=== PATIENT | female | born 1965 | race Caucasian/White ===

== ENCOUNTER → 2016-04-02 | Outpatient (CLI) | payer OTHER ==
[~2016-04-02] MED LIST: ACET65TA; AMO500 PO; ATEN25TA; CALC600T21 PO; CARAFATE1 PO; CARMOL TOPICAL; CELE-19 PO; COLA100C2; DURATUSS PO; FLONASESPR NASAL; IBUP600T; LEVO88TA3 PO; NAPROSY500; NYSTATINP TOPICALLY; PERC5TAB8; VITA200015 PO; VITAMIN D50000 UNT; XANAX0.25 PO; ZITHROZPAK PO; ZOMI5TAB4 PO; [UNRECOGNIZED DRUG - OTHER] TOPICAL
--- NOTE | 2016-04-02 09:44 | REPMRS ---
Patient History The patient states she has not had a clinical breast exam in over a year. Family history of colorectal cancer in paternal aunt and breast cancer in paternal cousin. Benign excisional biopsy of the right breast, 1996. Digital Woman Screen Mammo: April 02, 2016 - Exam #: [id number] Bilateral CC and MLO view(s) were taken. Technologist: Richelle Hoskins, Technologist Prior study comparison: April 01, 2015, digital woman screen mammo performed at [facility]. March 27, 2014, digital woman screen mammo performed at [facility]. March 26, 2013, digital woman screen mammo performed at [facility]. FINDINGS: The breast tissue is heterogeneously dense. This may lower the sensitivity of mammography. There is a moderate amount of heterogeneously dense fibroglandular tissue which is fairly symmetric. There is no interval development of dominant mass, architectural distortion, or clustered microcalcification typical of malignancy. There has been no change in the appearance of the mammogram from the prior studies. ASSESSMENT: BI-RADS/ACR category 1 mammogram. Negative. Recommendation Routine screening mammogram of both breasts in 1 year (for women over age 40). This mammogram was interpreted with the aid of an FDA-approved computer-aided dectection system. Electronically Signed By: Aba Rodrigues MD 04/02/16 0944
== END ==
LOC: M WHC 08:51
PROVIDERS: ATTEND Family Medicine
DX: Z12.31 Encounter for screening mammogram for malignant neoplasm of breast (principal)

== ENCOUNTER → 2016-04-07 | Outpatient (CLI) | payer OTHER ==
[~2016-04-07] VITALS: Ht 162.6 cm; Wt 83.9 kg
[~2016-04-07] MED LIST changes: +NS 1,000 ML IV SCH; +PROPOFOL 200 MG/20 ML VIAL As Ordered ONE
--- NOTE | 2016-04-07 14:59 | ROOR ---
Patient Name: Kelsey Hoyt Procedure Date: 04/07/2016 2:31 PM Date of : 1965 Age: 50 Room: [facility] Gender: Female Note Status: Finalized Procedure: Colonoscopy to Cecum + Biopsy Polypectomy + Hemoclip Indications: Screening for colorectal malignant neoplasm Providers: Braulio Lopez MD Referring MD: Delfino Aburto MD Requesting Provider: Medicines: Monitored Anesthesia Care Complications: No immediate complications. Procedure: Pre-Anesthesia Assessment: - The heart rate, respiratory rate, oxygen saturations, blood pressure, adequacy of pulmonary ventilation, and response to care were monitored throughout the procedure. The Colonoscope was introduced through the anus and advanced to the cecum, identified by appendiceal orifice and ileocecal valve. The colonoscopy was performed without difficulty. The patient tolerated the procedure well. The quality of the bowel preparation was excellent. Findings: The perianal and digital rectal examinations were normal. Non-bleeding internal hemorrhoids were found during retroflexion. The hemorrhoids were small and Grade I (internal hemorrhoids that do not prolapse). A small polyp was found in the proximal ascending colon. The polyp was sessile. The polyp was removed with a jumbo cold forceps. Resection and retrieval were complete. To prevent bleeding after the polypectomy, one hemostatic clip was successfully placed (MR conditional). There was no bleeding at the end of the procedure. The exam was otherwise without abnormality on direct and retroflexion views. Impression: - Non-bleeding internal hemorrhoids. - One small polyp in the proximal ascending colon, removed with a jumbo cold forceps. Resected and retrieved. Clip (MR conditional) was placed. - The examination was otherwise normal on direct and retroflexion views. - The exam was otherwise normal to the cecum. Recommendation: - Patient has a contact number available for emergencies. The signs and symptoms of potential delayed complications were discussed with the patient. Return to normal activities tomorrow. Written discharge instructions were provided to the patient. - High fiber diet. - Discharge patient to home. - Continue present medications. - Await pathology results. - Telephone GI clinic for pathology results in 1 week. - Repeat colonoscopy for surveillance based on pathology results. - Return to referring physician. - The findings and recommendations were discussed with the patient's family. Braulio Lopez MD Braulio Lopez MD 04/07/2016 2:59:05 PM This report has been signed electronically. Number of Addenda: 0 Note Initiated On: 04/07/2016 2:31 PM Estimated Blood Loss: Estimated blood loss: none.
[2016-04-07 15:20] VITALS: BP 120/76
== END ==
LOC: M OPP 12:52
PROVIDERS: ATTEND Internal Medicine Gastroenterology
DX: Z12.11 Encounter for screening for malignant neoplasm of colon (principal); D12.2 Benign neoplasm of ascending colon; K64.0 First degree hemorrhoids; E03.9 Hypothyroidism, unspecified; M54.2 Cervicalgia; G43.909 Migraine, unspecified, not intractable, without status migrainosus; L40.9 Psoriasis, unspecified; Z86.718 Personal history of other venous thrombosis and embolism; Z80.0 Family history of malignant neoplasm of digestive organs; Z87.891 Personal history of nicotine dependence; Z80.52 Family history of malignant neoplasm of bladder; Z79.899 Other long term (current) drug therapy

== ENCOUNTER → 2016-05-12 | Outpatient (CLI) | payer OTHER ==
[~2016-05-12] MED LIST changes: -NS 1,000 ML IV SCH; -PROPOFOL 200 MG/20 ML VIAL As Ordered ONE
--- NOTE | 2016-05-12 12:00 | REP ---
PELVIS ULTRASOUND: Real-time sonographic evaluation of the pelvis performed utilizing transabdominal and endovaginal technique. Bladder measures 14.3 x 11.6 x 7.2 cm. Uterus measures 11.0 x 4.4 x 6.8 cm. Endometrial thickness is 10 mm. There is no endometrial fluid collection. Nabothian cysts are seen in the region of the cervix. Fibroids are identified in the myometrium, anteriorly on the left measuring 2.1 x 1.1 x 2.0 cm and posteriorly 2.5 x 2.0 x 2.9 cm. Right ovary could not be visualized. Left ovary measured 2.6 x 1.4 x 2.1 cm. There is blood flow seen in the left ovary with duplex Doppler evaluation with RI 0.48. A complex follicle in the left ovary measures 2.1 cm in maximum diameter. IMPRESSION: There is an anterior and a posterior uterine fibroid as discussed above. Right ovary could not be visualized. Left ovary demonstrates a complex dominant follicle.
== END ==
LOC: M WHC 09:21
PROVIDERS: ATTEND Nurse Practitioner Family
DX: R10.2 Pelvic and perineal pain (principal)

== ENCOUNTER → 2016-05-12 | Outpatient (CLI) | payer OTHER ==
--- NOTE | 2016-05-13 14:11 | DEXA ---
AP SPINE L1 - L4 1.417 1.8 1.7 LT FEMUR TOTAL 0.948 -0.5 -0.4 RT FEMUR TOTAL 0.977 -0.2 -0.4 TOTAL BODY TOTAL OTHER DUAL FEMUR FRAX* ASSESSMENT Risk factors: None. 10 year probability of fracture Major osteoporotic fracture 5.0 % Hip fracture 0.4 % COMMENTS: Normal bone densitometry of the spine. There is low bone density of the hips. The decreased density of the spine does not represent a significant change. The decreased density of the left hip does not represent a significant change. The decreased density of the right hip does not represent a significant change. The density of the spine has increased 1.8% since the initial exam on 2011. The spine density has decreased 0.3% since the most recent exam on 03/26/2013. The density of the left hip has decreased 0.1% since the initial exam on 2011. The density of the left hip has increased 0.3% since the most recent exam on . The density of the right hip has decreased 1.1% since the initial exam on 2011. The density of the right hip has decreased 0.8% since the most recent exam on . FOLLOW-UP: Recommendation for the next bone density exam: 2 years. SAMANTHA
== END ==
LOC: M WHC 09:24
PROVIDERS: ATTEND Family Medicine
DX: E55.9 Vitamin D deficiency, unspecified (principal)

== ENCOUNTER → 2016-06-23 | Outpatient (CLI) | payer OTHER ==
[2016-06-23 16:05] LABS: BASO % 0.4 % (0.0-1.0); EOS # 0.2 K/mm3 (0.0-0.50); LARGE UNSTAINED CELL # 0.2 K/mm3 (0.0-0.4); LARGE UNSTAINED CELL % 1.9 % (0.0-4.0); LYMPH # 2.2 K/mm3 (1.5-4.5); LYMPH % 22.9 % (24.0-44.0); MEAN CORPUSCULAR HEMOGLOBIN 31.1 pg (27.0-33.0); MEAN CORPUSCULAR VOLUME 91.5 fl (80.0-96.0); MONO # 0.5 K/mm3 (0.0-0.8); MONO % 5.6 % (0.0-5.0); NEUTROPHILS % 67.2 % (36.0-66.0); PLATELET COUNT, AUTOMATED 240 k/mm3 (150-450); RED CELL DISTRIBUTION WIDTH 12.6 % (11.5-14.5); WHITE BLOOD COUNT 8.8 K/mm3 (4.0-10.0)
[2016-06-23 16:43] LABS: ALBUMIN 3.9 GM/DL (3.2-5.2); ALKALINE PHOSPHATASE 67 U/L (45-117); ALT/SGPT 32 U/L (12-78); ANION GAP 8 MEQ/L (8-16); AST/SGOT 19 U/L (15-37); BILIRUBIN,TOTAL 0.7 MG/DL (0.2-1.0); BLOOD UREA NITROGEN 13 MG/DL (7-18); CALCIUM LEVEL 8.6 MG/DL (8.5-10.1); CARBON DIOXIDE LEVEL 28 MEQ/L (21-32); CHLORIDE LEVEL 104 MEQ/L (98-107); CREATININE FOR GFR 0.87 MG/DL (0.55-1.02); FREE T4 1.03 NG/DL (0.76-1.46); GLOMERULAR FILTRATION RATE > 60.0 (>51); GLUCOSE, FASTING 90 MG/DL (70-105); SODIUM LEVEL 140 MEQ/L (136-145); TOTAL PROTEIN 7.8 GM/DL (6.4-8.2)
[2016-06-23 16:59] LABS: VITAMIN B12 LEVEL 390 PG/ML (247-911)
== END ==
LOC: M WUC 08:51
PROVIDERS: ATTEND Family Medicine
DX: E03.9 Hypothyroidism, unspecified (principal); E55.9 Vitamin D deficiency, unspecified

== ENCOUNTER 2016-07-30 20:32 | Emergency (ER) | payer OTHER ==
[~2016-07-30] VITALS: Ht 162.6 cm; Wt 86.2 kg
[2016-07-30] MEDS ORDERED: AMOX500T (20:41)
[2016-07-30] MEDS ORDERED: HYDR-3713 (20:41)
[2016-07-30] MEDS ORDERED: TOPI25TA5 (20:41)
[2016-07-30] MEDS ORDERED: NS 1,000 ML IV ONE (21:00)
[2016-07-30] MEDS ORDERED: ONDANSETRON 4MG/2ML VIAL (J2405) IV ONE (21:00)
[2016-07-30] MEDS ORDERED: KETOROLAC 30 MG/ML VIAL (J1885) IV ONE (21:00)
[2016-07-30 21:16] LABS: BASO % 0.1 % (0.0-1.0); EOS # 0.1 K/mm3 (0.0-0.50); EOS % 1.1 % (0.0-3.0); LARGE UNSTAINED CELL # 0.1 K/mm3 (0.0-0.4); LARGE UNSTAINED CELL % 1.1 % (0.0-4.0); LYMPH # 1.7 K/mm3 (1.5-4.5); LYMPH % 13.7 % (24.0-44.0); MEAN CORPUSCULAR HEMOGLOBIN 31.3 pg (27.0-33.0); MEAN CORPUSCULAR HGB CONC 34.8 g/dl (32.0-36.5); MEAN CORPUSCULAR VOLUME 89.9 fl (80.0-96.0); MONO # 0.5 K/mm3 (0.0-0.8); MONO % 4.5 % (0.0-5.0); NEUTROPHILS # 9.1 K/mm3 (1.8-7.7); NEUTROPHILS % 79.4 % (36.0-66.0); PLATELET COUNT, AUTOMATED 263 k/mm3 (150-450); RED CELL DISTRIBUTION WIDTH 12.7 % (11.5-14.5); WHITE BLOOD COUNT 11.4 K/mm3 (4.0-10.0)
[2016-07-30 21:35] LABS: ALBUMIN 3.8 GM/DL (3.2-5.2); ALBUMIN/GLOBULIN RATIO 0.84 (1.00-1.93); ALKALINE PHOSPHATASE 69 U/L (45-117); ALT/SGPT 22 U/L (12-78); ANION GAP 13 MEQ/L (8-16); AST/SGOT 16 U/L (15-37); BILIRUBIN,DIRECT 0.2 MG/DL (0.0-0.2); BILIRUBIN,TOTAL 1.1 MG/DL (0.2-1.0); BLOOD UREA NITROGEN 13 MG/DL (7-18); CALCIUM LEVEL 9.3 MG/DL (8.5-10.1); CARBON DIOXIDE LEVEL 22 MEQ/L (21-32); CHLORIDE LEVEL 102 MEQ/L (98-107); CREATININE FOR GFR 0.73 MG/DL (0.55-1.02); GLOMERULAR FILTRATION RATE > 60.0 (>51); GLUCOSE, FASTING 90 MG/DL (70-105); POTASSIUM SERUM 3.8 MEQ/L (3.5-5.1); SODIUM LEVEL 137 MEQ/L (136-145); TOTAL PROTEIN 8.3 GM/DL (6.4-8.2)
[2016-07-30] MEDS ORDERED: GI COCKTAIL 50ML BTL(HYOSCYAMINE/MAALOX/LIDOCAINE VISCOUS)(1:3:1) PO ONE (22:00)
[2016-07-30] MEDS ORDERED: ZOFR4TAB3 PO (22:14)
[2016-07-30] MEDS ORDERED: NAPR500T PO (22:15)
[2016-07-30 22:47] VITALS: BP 113/69
== END 2016-07-30 22:51 | disposition home or self-care (01) ==
LOC: M ED 21:38
DX: R11.2 Nausea with vomiting, unspecified (principal); R51 Headache; Z79.899 Other long term (current) drug therapy; I10 Essential (primary) hypertension; M54.9 Dorsalgia, unspecified
CPT/HCPCS: 36415; 80048; 80076; 83690; 85025; 96374; 96375; 99283; J1885; J2405

== ENCOUNTER → 2016-08-12 | Outpatient (CLI) | payer OTHER ==
[~2016-08-12] MED LIST changes: +AMOX500T; +HYDR-3713; +NAPR500T PO; +TOPI25TA5; +ZOFR4TAB3 PO
[2016-08-12 11:28] LABS: BASO % 0.4 % (0.0-1.0); EOS # 0.1 K/mm3 (0.0-0.50); EOS % 1.2 % (0.0-3.0); LARGE UNSTAINED CELL # 0.1 K/mm3 (0.0-0.4); LARGE UNSTAINED CELL % 1.6 % (0.0-4.0); LYMPH % 22.6 % (24.0-44.0); MEAN CORPUSCULAR HEMOGLOBIN 31.1 pg (27.0-33.0); MEAN CORPUSCULAR HGB CONC 33.6 g/dl (32.0-36.5); MEAN CORPUSCULAR VOLUME 92.7 fl (80.0-96.0); MONO # 0.6 K/mm3 (0.0-0.8); MONO % 6.9 % (0.0-5.0); NEUTROPHILS # 5.4 K/mm3 (1.8-7.7); NEUTROPHILS % 67.3 % (36.0-66.0); PLATELET COUNT, AUTOMATED 267 k/mm3 (150-450); RED CELL DISTRIBUTION WIDTH 13.1 % (11.5-14.5)
[2016-08-12 11:45] LABS: ANION GAP 5 MEQ/L (8-16); BLOOD UREA NITROGEN 13 MG/DL (7-18); CARBON DIOXIDE LEVEL 26 MEQ/L (21-32); CHLORIDE LEVEL 110 MEQ/L (98-107); CREATININE FOR GFR 0.76 MG/DL (0.55-1.02); GLOMERULAR FILTRATION RATE > 60.0 (>51); GLUCOSE, FASTING 86 MG/DL (70-105); SODIUM LEVEL 141 MEQ/L (136-145)
== END ==
LOC: M WUC 09:16
PROVIDERS: ATTEND Physician Assistant Medical
DX: M75.40 Impingement syndrome of unspecified shoulder (principal)

== ENCOUNTER → 2016-09-01 | Outpatient (CLI) | payer OTHER ==
--- NOTE | 2016-09-01 09:48 | REP ---
MRI CERVICAL SPINE WITHOUT CONTRAST: HISTORY: Shoulder impingement. Bilateral arm pain and numbness and tingling. Comparison MRI study is from December 08, 2011. TECHNIQUE: Sagittal and axial T1 and T2-weighted scans are acquired in the usual fashion with and without fat saturation. Sequences include spin echo, turbo spin echo, and STIR imaging sequences. MRI FINDINGS: There is straightening of the normal cervical lordosis. Cortical and medullary bone signal intensity are normal. Vertebral body heights are preserved. There is decreased disc space height and signal intensity at the C5-6 and to a lesser extent C6-7 and C4-5 disc spaces consistent with degenerative disc disease. No extra vertebral abnormality is appreciated. Axial and sagittal T1 and T2-weighted images show no significant abnormality at C2-3. At C3-4, there is mild left-sided uncovertebral spurring producing some neural foraminal narrowing. There is diffuse disc bulging. No central canal stenosis is seen. At C4-5, there is no evidence of disc herniation, central canal stenosis, or significant neural foraminal compromise. At C5-6, there is a broad-based central disc protrusion effacing the ventral subarachnoid space and indenting the ventral margin of the cord. There is some effacement of the CSF signal from the dorsal aspect of the canal as well consistent with mild central canal stenosis. There is bilateral uncovertebral spurring at C5-6 as well. This is worse on the left than the right. At C6-7, there is minimal central disc bulging. No central canal stenosis or neural foraminal compromise is seen. The C7-T1 level is unremarkable as well. IMPRESSION: Degenerate spondylosis. This is most pronounced at C5-6 where there is mild central canal stenosis and a broad-based central disc protrusion with bilateral neural foraminal narrowing. There is also some left-sided neural foraminal narrowing at C3-4. In comparison with the 2012 prior study, the central portion of the disc protrusion at C5-6 has increased in size and the central canal stenosis is more prominent. Otherwise, unchanged. Signed by Mikey Rodrigues MD 09/01/2016 03:22 P
== END ==
LOC: M RAD 07:08
PROVIDERS: ATTEND Physician Assistant Medical
DX: M47.892 Other spondylosis, cervical region (principal)

== ENCOUNTER → 2016-11-24 | Outpatient (CLI) | payer OTHER ==
[~2016-11-24] MED LIST changes: -CALC600T21 PO; +CALC600T60 PO; -CELE-19 PO; +CELE1CAP4 PO; +TOPI25TA10; -TOPI25TA5; +ZOMI5TAB12 PO; -ZOMI5TAB4 PO
[2016-11-24 14:12] LABS: BASO % 0.4 % (0.0-1.0); EOS # 0.1 K/mm3 (0.0-0.50); EOS % 1.5 % (0.0-3.0); LARGE UNSTAINED CELL # 0.1 K/mm3 (0.0-0.4); LARGE UNSTAINED CELL % 1.6 % (0.0-4.0); LYMPH # 1.8 K/mm3 (1.5-4.5); LYMPH % 24.7 % (24.0-44.0); MEAN CORPUSCULAR HEMOGLOBIN 31.5 pg (27.0-33.0); MEAN CORPUSCULAR HGB CONC 34.6 g/dl (32.0-36.5); MEAN CORPUSCULAR VOLUME 91.1 fl (80.0-96.0); MONO # 0.4 K/mm3 (0.0-0.8); MONO % 5.9 % (0.0-5.0); NEUTROPHILS # 4.8 K/mm3 (1.8-7.7); NEUTROPHILS % 65.9 % (36.0-66.0); PLATELET COUNT, AUTOMATED 249 k/mm3 (150-450); RED CELL DISTRIBUTION WIDTH 12.8 % (11.5-14.5); WHITE BLOOD COUNT 7.3 K/mm3 (4.0-10.0)
== END ==
LOC: M WUC 08:33
PROVIDERS: ATTEND Family Medicine
DX: E78.2 Mixed hyperlipidemia (principal)

== ENCOUNTER → 2017-05-12 | Outpatient (REF) | payer OTHER | LOC: M SFHCWAGY 11:08 | DX: Z12.4 Encounter for screening for malignant neoplasm of cervix (principal) | CPT/HCPCS: G0123 ==

== ENCOUNTER → 2017-05-12 | Outpatient (CLI) | payer OTHER | LOC: M WHC 10:38 | DX: Z12.39 Encounter for other screening for malignant neoplasm of breast (principal) ==

== ENCOUNTER → 2017-07-18 | Outpatient (CLI) | payer OTHER ==
[2017-07-18 09:01] LABS: HEMATOCRIT 39.4 % (36.0-47.0)
[2017-07-18 09:35] LABS: C REACTIVE PROTEIN QUANTITATIV < 0.30 MG/DL (0.00-0.30); CHOLESTEROL LEVEL 178 MG/DL (<200); CHOLESTEROL RISK RATIO 3.358 (<5); FERRITIN 25 NG/ML (8-252); FREE T4 0.95 NG/DL (0.76-1.46); HDL CHOLESTEROL 53 MG/DL (>40); IRON (FE) 66 UG/DL (50-170); LDL CHOLESTEROL 104.2 MG/DL (<100); NON-HDL-C 125 MG/DL; TOTAL IRON BINDING CAPACITY 330 UG/DL (250-450); TRIGLYCERIDES LEVEL 104 MG/DL (<150)
[2017-07-18 09:40] LABS: VITAMIN B12 LEVEL 352 PG/ML (247-911)
[2017-07-19 11:37] LABS: PRETREATED FOLATE FOR RBCFOL 11.1 NG/ML; RBC FOLATE 591.6 NG/ML (280-791)
== END ==
LOC: M WUC 08:18
DX: E78.2 Mixed hyperlipidemia (principal); E53.8 Deficiency of other specified B group vitamins; E03.9 Hypothyroidism, unspecified
CPT/HCPCS: 83550

== ENCOUNTER 2017-08-09 17:06 | Outpatient (CLI) | payer OTHER | END 2017-08-22 | LOC: M RAD 17:06 | DX: M47.816 Spondylosis without myelopathy or radiculopathy, lumbar region (principal) | CPT/HCPCS: 72148 ==

== ENCOUNTER → 2017-12-02 | Outpatient (REF) | payer OTHER ==
[2017-12-02 12:01] LABS: BASO # 0.1 10^3/uL (0.0-0.2); BASO % 0.6 % (0.0-1.0); EOS # 0.1 10^3/uL (0.0-0.50); EOS % 1.4 % (0.0-3.0); HEMATOCRIT 41.3 % (36.0-47.0); HEMOGLOBIN 13.9 g/dl (12.0-15.5); IMMATURE GRANULOCYTE % 0.2 % (0-3.0); LYMPH # 2.1 10^3/uL (1.5-4.5); LYMPH % 24.5 % (24.0-44.0); MEAN CORPUSCULAR HEMOGLOBIN 30.5 pg (27.0-33.0); MEAN CORPUSCULAR HGB CONC 33.7 g/dl (32.0-36.5); MEAN CORPUSCULAR VOLUME 90.6 fl (80.0-96.0); MONO # 0.5 10^3/uL (0.0-0.8); MONO % 6.2 % (0.0-5.0); NEUTROPHILS # 5.8 10^3/uL (1.8-7.7); NEUTROPHILS % 67.1 % (36.0-66.0); PLATELET COUNT, AUTOMATED 278 10^3/uL (150-450); RED BLOOD COUNT 4.56 10^6/uL (4.00-5.40); RED CELL DISTRIBUTION WIDTH 12.7 % (11.5-14.5); RETICULOCYTE # 80.3 10^9/L (17-77); RETICULOCYTE % 1.8 % (0.5-1.5); WHITE BLOOD COUNT 8.7 10^3/uL (4.0-10.0)
[2017-12-02 12:49] LABS: ALBUMIN/GLOBULIN RATIO 1.08 (1.00-1.93); ALKALINE PHOSPHATASE 83 U/L (45-117); ALT/SGPT 47 U/L (12-78); ANION GAP 9 MEQ/L (8-16); AST/SGOT 23 U/L (7-37); BILIRUBIN,TOTAL 0.7 MG/DL (0.2-1.0); BLOOD UREA NITROGEN 10 MG/DL (7-18); CALCIUM LEVEL 9.6 MG/DL (8.5-10.1); CARBON DIOXIDE LEVEL 25 MEQ/L (21-32); CHLORIDE LEVEL 109 MEQ/L (98-107); FREE T4 1.04 NG/DL (0.76-1.46); GLOMERULAR FILTRATION RATE > 60.0 (>51); GLUCOSE, FASTING 91 MG/DL (70-100); POTASSIUM SERUM 4.3 MEQ/L (3.5-5.1); SODIUM LEVEL 143 MEQ/L (136-145); THYROID STIMULATING HORMONE 0.513 uIU/ML (0.358-3.740); TOTAL PROTEIN 7.7 GM/DL (6.4-8.2)
[2017-12-02 14:45] LABS: ESTIMATED AVERAGE GLUCOSE 108 MG/DL (60-110); HEMOGLOBIN A1c 5.4 %
[2017-12-03 15:10] LABS: INSULIN LEVEL 11.6 uIU/mL (2.6-24.9)
== END ==
LOC: M SFHCPLAZ 08:10
DX: E53.8 Deficiency of other specified B group vitamins (principal); E66.3 Overweight; E03.9 Hypothyroidism, unspecified

== ENCOUNTER → 2018-05-09 | Outpatient (REF) | payer OTHER ==
[~2018-05-09] MED LIST changes: +NAPR-50 PO; -NAPR500T PO; +ZOFR4TAB14 PO; -ZOFR4TAB3 PO
[2018-05-09 10:43] LABS: BASO # 0.1 10^3/uL (0.0-0.2); BASO % 0.6 % (0.0-1.0); EOS # 0.1 10^3/uL (0.0-0.50); EOS % 1.3 % (0.0-3.0); HEMATOCRIT 41.1 % (36.0-47.0); HEMOGLOBIN 13.9 g/dl (12.0-15.5); LYMPH # 2.1 10^3/uL (1.5-4.5); MEAN CORPUSCULAR HEMOGLOBIN 30.5 pg (27.0-33.0); MEAN CORPUSCULAR HGB CONC 33.8 g/dl (32.0-36.5); MEAN CORPUSCULAR VOLUME 90.3 fl (80.0-96.0); MONO # 0.6 10^3/uL (0.0-0.8); MONO % 7.8 % (0.0-5.0); NEUTROPHILS # 5.1 10^3/uL (1.8-7.7); NEUTROPHILS % 64.2 % (36.0-66.0); PLATELET COUNT, AUTOMATED 254 10^3/uL (150-450); RED BLOOD COUNT 4.55 10^6/uL (4.00-5.40); WHITE BLOOD COUNT 7.9 10^3/uL (4.0-10.0)
[2018-05-09 10:44] LABS: HEMATOCRIT 41.1 % (36.0-47.0)
[2018-05-09 13:04] LABS: ALBUMIN 3.9 GM/DL (3.2-5.2); ALT/SGPT 43 U/L (12-78); BILIRUBIN,TOTAL 0.8 MG/DL (0.2-1.0); BLOOD UREA NITROGEN 15 MG/DL (7-18); CALCIUM LEVEL 9.5 MG/DL (8.5-10.1); CARBON DIOXIDE LEVEL 24 MEQ/L (21-32); CHLORIDE LEVEL 106 MEQ/L (98-107); CREATININE FOR GFR 0.92 MG/DL (0.55-1.30); FREE T4 1.19 NG/DL (0.76-1.46); GLOMERULAR FILTRATION RATE > 60.0 (>51); GLUCOSE, FASTING 88 MG/DL (70-100); POTASSIUM SERUM 4.6 MEQ/L (3.5-5.1); PTH INTACT 47.2 PG/ML (18.5-88.0); SODIUM LEVEL 141 MEQ/L (136-145); TOTAL 25(OH) VITAMIN D 31.8 NG/ML (30.0-100.0); TOTAL PROTEIN 7.7 GM/DL (6.4-8.2); VITAMIN B12 LEVEL 419 PG/ML (247-911)
== END ==
LOC: M SFHCPLAZ 08:18
PROVIDERS: ATTEND Family Medicine
DX: E53.8 Deficiency of other specified B group vitamins (principal); E55.9 Vitamin D deficiency, unspecified; E03.9 Hypothyroidism, unspecified

== ENCOUNTER → 2018-05-23 | Outpatient (CLI) | payer OTHER ==
--- NOTE | 2018-05-24 05:47 | REP ---
Clinical: Thyroid nodule. Technique: Real time murillo scale and color evaluation using linear high frequency transducer. Comparison: None. Findings: The thyroid gland is heterogeneous, but without discrete nodule or cystic change appreciated. Right lobe measures 3.3 x 1.3 x 1.0 cm. Left lobe measures 2.9 x 0.9 x 1.0 cm. Isthmus measures 3.6 mm in width. Impression: Heterogeneous thyroid gland. No discrete nodule or cyst. Electronically Signed by Skip Madsen MD 05/24/2018 05:39 A
== END ==
LOC: M RAD 16:30
PROVIDERS: ATTEND Family Medicine
DX: E07.9 Disorder of thyroid, unspecified (principal)

== ENCOUNTER → 2018-07-12 | Outpatient (CLI) | payer OTHER ==
[~2018-07-12] MED LIST changes: -NAPR-50 PO; +NAPR-837 PO
--- NOTE | 2018-07-12 12:02 | REPMRS ---
Patient History The patient states she had a clinical breast exam in 07/2018. Family history of breast cancer in paternal cousin, colorectal cancer in paternal aunt. Benign excisional biopsy of the right breast, 1996. No Hormone Replacement Therapy 3D TOMOSYNTHESIS WAS PERFORMED. Digital Woman Screen Mammo: July 12, 2018 - Exam #: [id number] Bilateral CC and MLO view(s) were taken. Technologist: Lisa Tejeda, Technologist Prior study comparison: May 12, 2017, digital woman screen mammo performed at [facility]. April 02, 2016, digital woman screen mammo performed at [facility]. FINDINGS: The breast tissue is heterogeneously dense. This may lower the sensitivity of mammography. There has been no change in the appearance of the mammogram from the prior studies. There is a moderate amount of residual fibroglandular tissue which is fairly symmetric. There is no interval development of dominant mass, areas of architectural distortion, or clustered microcalcification typical of malignancy. Assessment: BI-RADS/ACR category 1 mammogram. Negative Mammogram. Recommendation Routine screening mammogram in 1 year (for women over age 40). This mammogram was interpreted with the aid of an FDA-approved computer-aided dectection system. Electronically Signed By: Anatoly Avila MD 07/12/18 7905
== END ==
LOC: M WHC 08:45
PROVIDERS: ATTEND Family Medicine
DX: Z12.31 Encounter for screening mammogram for malignant neoplasm of breast (principal)

== ENCOUNTER → 2018-07-12 | Outpatient (REF) | payer OTHER ==
[2018-07-15 14:15] LABS: HPV HYBRID CAPTURE II Negative (Negative)
== END ==
LOC: M SFHCWAGY 09:11
PROVIDERS: ATTEND Nurse Practitioner Family
DX: Z12.4 Encounter for screening for malignant neoplasm of cervix (principal)
CPT/HCPCS: 87624; G0123

== ENCOUNTER → 2018-09-25 | Outpatient (CLI) | payer OTHER ==
--- NOTE | 2018-09-27 12:55 | DEXA ---
AP SPINE L1 - L4 1.313 1.0 1.7 LT FEMUR TOTAL 0.888 -1.0 -0.4 LT NECK 0.775 -1.9 -0.9 RT FEMUR TOTAL 0.918 -0.7 -0.1 RT NECK 0.816 -1.6 -0.6 TOTAL BODY TOTAL OTHER COMMENTS: Normal bone densitometry of the spine. There is low bone density of hips. The decreased density of the spine does represent a significant change. The decreased density of the left hip does represent a significant change. The decreased density of the right hip does represent a significant change. The density of the spine has decreased 5.7% since the initial exam on 03/12/2011. The spine density has decreased 7.3% since the most recent exam on 05/12/2016. The density of the left hip has decreased 6.4% since the initial exam on 03/12/2011. The density of the left hip has decreased 6.3% since the most recent exam on 05/12/2016. The density of the right hip has decreased 7.1% since the initial exam on 03/12/2011. The density of the right hip has decreased 6.0% since the most recent exam on 05/12/2016. FOLLOW-UP: Recommendation for the next bone density exam: 2 years. SAMANTHA
== END ==
LOC: M WHC 14:19
PROVIDERS: ATTEND Family Medicine
DX: M85.80 Other specified disorders of bone density and structure, unspecified site (principal)

== ENCOUNTER → 2018-10-19 | Outpatient (REF) | payer OTHER ==
[2018-10-19 10:51] LABS: APPEARANCE, URINE CLEAR (CLEAR); BACTERIA, URINE AUTO NEGATIVE (NEGATIVE); BILIRUBIN, URINE AUTO NEGATIVE (NEGATIVE); BLOOD, URINE BLOOD 1+ (NEGATIVE); COLOR, URINE YELLOW (YELLOW); GLUCOSE, URINE (UA) AUTO NEGATIVE (NEGATIVE); KETONE, URINE AUTO NEGATIVE (NEGATIVE); LEUKOCYTE ESTERASE, URINE AUTO NEGATIVE (NEGATIVE); MUCUS, URINE SMALL (NEGATIVE); NITRITE, URINE AUTO NEGATIVE (NEGATIVE); PROTEIN, URINE AUTO NEGATIVE (NEGATIVE); RBC, URINE AUTO 1 /HPF (0-3); SPECIFIC GRAVITY URINE AUTO 1.015 (1.002-1.035); SQUAMOUS EPITHELIAL CELL UR AU 0 /HPF (0-6); UROBILINOGEN, URINE AUTO 0.2 mg/dL (0.0-2.0); WBC, URINE AUTO 1 /HPF (0-3)
[2018-10-19 11:53] LABS: CREATININE, URINE 91.9 MG/DL; MALB URINE SIEMENS 5.1 MG/L; MAU/CREAT RATIO 5.5 MCG/MG (0.0-30.0)
[2018-10-19 13:16] LABS: BLOOD UREA NITROGEN 18 MG/DL (7-18); GLOMERULAR FILTRATION RATE > 60.0 (>51); GLUCOSE, FASTING 99 MG/DL (70-100)
[2018-10-19 13:17] LABS: ALBUMIN 3.8 GM/DL (3.2-5.2); ALT/SGPT 40 U/L (12-78); BILIRUBIN,TOTAL 0.5 MG/DL (0.2-1.0); CALCIUM LEVEL 9.7 MG/DL (8.5-10.1); CARBON DIOXIDE LEVEL 28 MEQ/L (21-32); CHLORIDE LEVEL 111 MEQ/L (98-107); POTASSIUM SERUM 4.4 MEQ/L (3.5-5.1); SODIUM LEVEL 143 MEQ/L (136-145); TOTAL PROTEIN 7.6 GM/DL (6.4-8.2)
[2018-10-19 14:31] LABS: PTH INTACT 29.3 PG/ML (18.5-88.0); TOTAL 25(OH) VITAMIN D 30.5 NG/ML (30.0-100.0)
[2018-10-19 14:45] LABS: HEMOGLOBIN A1c 5.5 %
== END ==
LOC: M SFHCPLAZ 07:50
PROVIDERS: ATTEND Family Medicine
DX: E66.3 Overweight (principal); E55.9 Vitamin D deficiency, unspecified; G43.001 Migraine without aura, not intractable, with status migrainosus

== ENCOUNTER → 2019-04-20 | Outpatient (CLI) | payer OTHER ==
[2019-04-20 12:10] LABS: ALBUMIN 3.8 GM/DL (3.2-5.2); ALT/SGPT 38 U/L (12-78); BILIRUBIN,TOTAL 1.1 MG/DL (0.2-1.0); BLOOD UREA NITROGEN 14 MG/DL (7-18); C REACTIVE PROTEIN QUANTITATIV 0.33 MG/DL (0.00-0.30); CALCIUM LEVEL 8.9 MG/DL (8.5-10.1); CARBON DIOXIDE LEVEL 28 MEQ/L (21-32); CHLORIDE LEVEL 106 MEQ/L (98-107); CHOLESTEROL LEVEL 187 MG/DL (<200); CHOLESTEROL RISK RATIO 3.224 (<5); CREATININE FOR GFR 0.82 MG/DL (0.55-1.30); FREE T4 1.05 NG/DL (0.76-1.46); GLOMERULAR FILTRATION RATE > 60.0 (>51); GLUCOSE, FASTING 85 MG/DL (70-100); HDL CHOLESTEROL 58 MG/DL (>40); LDL CHOLESTEROL 109 MG/DL (<100); NON-HDL-C 129 MG/DL; POTASSIUM SERUM 4.7 MEQ/L (3.5-5.1); PTH INTACT 74.1 PG/ML (18.5-88.0); SODIUM LEVEL 142 MEQ/L (136-145); TOTAL PROTEIN 7.4 GM/DL (6.4-8.2); TRIGLYCERIDES LEVEL 101 MG/DL (<150)
[2019-04-20 13:15] LABS: HEMOGLOBIN A1c 5.4 %
== END ==
LOC: M WUC 08:48
PROVIDERS: ATTEND Family Medicine
DX: E55.9 Vitamin D deficiency, unspecified (principal); E03.9 Hypothyroidism, unspecified; E78.2 Mixed hyperlipidemia; M85.80 Other specified disorders of bone density and structure, unspecified site; E66.3 Overweight

== ENCOUNTER → 2019-05-17 | Outpatient (CLI) | payer OTHER ==
--- NOTE | 2019-05-18 04:54 | REP ---
Clinical: Psoriasis. Bilateral hand pain. Technique: AP, lateral, bilateral oblique views of the right and left hand. Findings: Left hand demonstrates generalized age-related changes along with minimally increased subchondral sclerosis and joint space narrowing involving the interphalangeal joints and first carpometacarpal and metacarpophalangeal joint. No periarticular erosive changes or loose bodies identified. No significant swelling. No acute fracture or dislocation. Right hand demonstrates generalized age-related changes with very minimal subchondral sclerosis and joint space narrowing involving primarily the interphalangeal joints. No periarticular erosive changes or loose bodies identified. No significant swelling. No acute fracture or dislocation. Impression: Mild primarily age-related degenerative changes (left greater than right). Electronically Signed by Skip Madsen MD 05/18/2019 04:46 A
== END ==
LOC: M WUC 09:09
PROVIDERS: ATTEND Family Medicine
DX: L40.9 Psoriasis, unspecified (principal); M79.641 Pain in right hand; M79.642 Pain in left hand

== ENCOUNTER → 2019-06-19 | Outpatient (CLI) | payer OTHER ==
[2019-06-20 09:34] LABS: HEPATITIS B SURFACE ANTIBODY NEGATIVE (POSITIVE); HEPATITIS B SURFACE ANTIGEN NEGATIVE (NEGATIVE); HEPATITIS C VIRUS ABY INDEX 0.1 INDEX (<0.8); HIV 1&2 SCREEN CENTAUR NEGATIVE (NEGATIVE)
== END ==
LOC: M LAB 11:56
PROVIDERS: ATTEND Dermatology
DX: Z79.899 Other long term (current) drug therapy (principal)

== ENCOUNTER → 2019-07-13 | Outpatient (REF) | payer OTHER ==
[2019-07-13 13:29] LABS: BASO % 0.5 % (0.0-1.0); EOS # 0.1 10^3/uL (0.0-0.5); EOS % 1.1 % (0.0-3.0); HEMATOCRIT 41.4 % (36.0-47.0); HEMOGLOBIN 14.1 g/dl (12.0-15.5); LYMPH # 2.5 10^3/uL (1.5-5.0); LYMPH % 28.4 % (24.0-44.0); MEAN CORPUSCULAR HGB CONC 34.1 g/dl (32.0-36.5); MONO # 0.8 10^3/uL (0.0-0.8); MONO % 8.6 % (0.0-5.0); NEUTROPHILS # 5.4 10^3/uL (1.5-8.5); NEUTROPHILS % 61.1 % (36.0-66.0); PLATELET COUNT, AUTOMATED 253 10^3/uL (150-450); RED BLOOD COUNT 4.55 10^6/uL (4.00-5.40); WHITE BLOOD COUNT 8.9 10^3/uL (4.0-10.0)
[2019-07-13 14:32] LABS: FREE T4 1.32 NG/DL (0.76-1.46); THYROID STIMULATING HORMONE 0.682 uIU/ML (0.358-3.740)
== END ==
LOC: M SFHCPLAZ 12:01
PROVIDERS: ATTEND Family Medicine
DX: E03.9 Hypothyroidism, unspecified (principal)

== ENCOUNTER → 2019-09-09 | Outpatient (CLI) | payer OTHER ==
[2019-09-09 12:32] LABS: ALBUMIN 3.5 GM/DL (3.2-5.2); ALT/SGPT 33 U/L (12-78); BILIRUBIN,TOTAL 0.4 MG/DL (0.2-1.0); BLOOD UREA NITROGEN 14 MG/DL (7-18); C REACTIVE PROTEIN QUANTITATIV 0.37 MG/DL (0.00-0.30); CALCIUM LEVEL 8.8 MG/DL (8.5-10.1); CARBON DIOXIDE LEVEL 26 MEQ/L (21-32); CHLORIDE LEVEL 109 MEQ/L (98-107); CREATININE FOR GFR 0.72 MG/DL (0.55-1.30); FREE T4 1.14 NG/DL (0.76-1.46); GLOMERULAR FILTRATION RATE > 60.0 (>51); GLUCOSE, FASTING 94 MG/DL (70-100); POTASSIUM SERUM 4.6 MEQ/L (3.5-5.1); SODIUM LEVEL 141 MEQ/L (136-145); THYROID STIMULATING HORMONE 0.217 uIU/ML (0.358-3.740); TOTAL PROTEIN 7.5 GM/DL (6.4-8.2)
[2019-09-09 12:34] LABS: HEMOGLOBIN A1c 5.6 %
[2019-09-10 08:21] LABS: TOTAL 25(OH) VITAMIN D 31.9 NG/ML (30.0-100.0)
[2019-09-10 08:22] LABS: PTH INTACT 46.3 PG/ML (18.5-88.0)
[2019-09-13 01:11] LABS: INSULIN LEVEL 21.2 uIU/mL (2.6-24.9)
== END ==
LOC: M WUC 08:45
PROVIDERS: ATTEND Family Medicine
DX: E55.9 Vitamin D deficiency, unspecified (principal); R73.01 Impaired fasting glucose; E03.9 Hypothyroidism, unspecified; L40.9 Psoriasis, unspecified

== ENCOUNTER → 2019-10-16 | Outpatient (CLI) | payer OTHER ==
--- NOTE | 2019-11-01 16:44 | REPMRS ---
Patient History The patient states she had a clinical breast exam in 10/2019. Patient is postmenopausal. Family history of breast cancer in paternal cousin, colorectal cancer in paternal aunt. Benign excisional biopsy of the right breast, 1996. No Hormone Replacement Therapy Digital Woman Screen Mammo: October 16, 2019 - Exam #: [id number] Bilateral CC and MLO view(s) were taken. Technologist: Lisa Tejeda, Technologist Prior study comparison: July 12, 2018, bilateral digital woman screen mammo performed at [facility]. May 12, 2017, digital woman screen mammo performed at [facility]. April 02, 2016, digital woman screen mammo performed at [facility]. FINDINGS: The breast tissue is heterogeneously dense. This may lower the sensitivity of mammography. There is a moderate amount of heterogeneously dense fibroglandular tissue which is fairly symmetric. There is no interval development of dominant mass, architectural distortion, or grouped microcalcification typical of malignancy. There has been no change in the appearance of the mammogram from the prior studies. 3-D tomosynthesis shows no additional findings. Assessment: BI-RADS/ACR category 1 mammogram. Negative Mammogram. Recommendation Routine screening mammogram of both breasts in 1 year (for women over age 40). This patient's Lifetime Breast Cancer RIsk is estimated at 10.0 %. This mammogram was interpreted with the aid of an FDA-approved computer-aided dectection system. Electronically Signed By: Aba Rodrigues MD 11/01/19 7967
== END ==
LOC: M WHC 10:02
PROVIDERS: ATTEND Nurse Practitioner Family
DX: Z12.31 Encounter for screening mammogram for malignant neoplasm of breast (principal)

== ENCOUNTER → 2019-10-16 | Outpatient (REF) | payer OTHER | LOC: M SFHCPLAZ 11:25 | PROVIDERS: ATTEND Nurse Practitioner Family | DX: Z12.4 Encounter for screening for malignant neoplasm of cervix (principal) ==

== ENCOUNTER → 2019-11-19 | Outpatient (REF) | payer OTHER | LOC: M SFHCWAGY 09:02 | PROVIDERS: ATTEND Obstetrics & Gynecology | DX: R87.610 Atypical squamous cells of undetermined significance on cytologic smear of cervix (ASC-US) (principal) ==

== ENCOUNTER → 2019-12-31 | Outpatient (REF) | payer OTHER | LOC: M SFHCWAGY 17:07 | PROVIDERS: ATTEND Obstetrics & Gynecology | DX: N87.1 Moderate cervical dysplasia (principal) ==

== ENCOUNTER 2020-03-13 02:00 | Emergency (ER) | payer OTHER ==
[~2020-03-13] VITALS: Ht 162.6 cm; Wt 86.4 kg
[2020-03-13 02:02] VITALS: BP 170/86
[2020-03-13] MEDS ORDERED: ZOLM5TAB14 (02:10)
[2020-03-13] MEDS ORDERED: FOSAMAX (02:10)
[2020-03-13] MEDS ORDERED: LEVO100T5 (02:10)
== END 2020-03-13 04:15 | disposition left against medical advice (07) ==
LOC: M ED 02:00
DX: Z53.21 Procedure and treatment not carried out due to patient leaving prior to being seen by health care provider (principal)

== ENCOUNTER → 2020-03-14 | Outpatient (CLI) | payer OTHER ==
[~2020-03-14] MED LIST changes: +FOSAMAX; +LEVO100T5; +ZOLM5TAB14
[2020-03-14 14:57] LABS: ALT/SGPT 45 U/L (12-78); BILIRUBIN,TOTAL 1.1 MG/DL (0.2-1.0); BLOOD UREA NITROGEN 11 MG/DL (7-18); CALCIUM LEVEL 8.9 MG/DL (8.5-10.1); CARBON DIOXIDE LEVEL 25 MEQ/L (21-32); CHLORIDE LEVEL 107 MEQ/L (98-107); CHOLESTEROL LEVEL 185 MG/DL (<200); CHOLESTEROL RISK RATIO 3.135 (<5); CREATININE FOR GFR 0.84 MG/DL (0.55-1.30); GLOMERULAR FILTRATION RATE > 60.0 (>51); GLUCOSE, FASTING 92 MG/DL (70-100); HDL CHOLESTEROL 59 MG/DL (>40); LDL CHOLESTEROL 104 MG/DL (<100); NON-HDL-C 126 MG/DL; POTASSIUM SERUM 3.9 MEQ/L (3.5-5.1); SODIUM LEVEL 139 MEQ/L (136-145); THYROID STIMULATING HORMONE 0.587 uIU/ML (0.358-3.740); TOTAL PROTEIN 7.8 GM/DL (6.4-8.2); TRIGLYCERIDES LEVEL 109 MG/DL (<150); VITAMIN B12 LEVEL 391 PG/ML (247-911)
[2020-03-14 14:58] LABS: MAU/CREAT RATIO 8.7 MCG/MG (0.0-30.0)
[2020-03-14 15:15] LABS: HEMOGLOBIN A1c 5.2 %
== END ==
LOC: M WUC 09:42
PROVIDERS: ATTEND Internal Medicine
DX: R73.01 Impaired fasting glucose (principal); E03.9 Hypothyroidism, unspecified; E53.8 Deficiency of other specified B group vitamins

== ENCOUNTER → 2020-03-21 | Outpatient (CLI) | payer OTHER | LOC: M WUC 10:09 | PROVIDERS: ATTEND Family Medicine | DX: R10.13 Epigastric pain (principal) ==

== ENCOUNTER → 2020-11-12 | Outpatient (CLI) | payer OTHER ==
[2020-11-12 09:55] LABS: BASO % 0.5 % (0.0-1.0); EOS # 0.1 10^3/uL (0.0-0.5); EOS % 1.6 % (0.0-3.0); HEMATOCRIT 39.7 % (36.0-47.0); HEMOGLOBIN 12.9 g/dl (12.0-15.5); LYMPH # 2.3 10^3/uL (1.5-5.0); LYMPH % 30.8 % (24.0-44.0); MEAN CORPUSCULAR HEMOGLOBIN 30.2 pg (27.0-33.0); MEAN CORPUSCULAR HGB CONC 32.5 g/dl (32.0-36.5); MONO # 0.6 10^3/uL (0.0-0.8); MONO % 7.5 % (2.0-8.0); NEUTROPHILS # 4.4 10^3/uL (1.5-8.5); NEUTROPHILS % 59.5 % (36.0-66.0); PLATELET COUNT, AUTOMATED 242 10^3/uL (150-450); RED BLOOD COUNT 4.27 10^6/uL (4.00-5.40); WHITE BLOOD COUNT 7.5 10^3/uL (4.0-10.0)
[2020-11-12 10:18] LABS: ERYTHROCYTE SEDIMENTATION RATE 25 mm/hr (0-30)
[2020-11-12 10:24] LABS: ALBUMIN 3.4 GM/DL (3.2-5.2); ALT/SGPT 30 U/L (12-78); BILIRUBIN,TOTAL 0.6 MG/DL (0.2-1.0); BLOOD UREA NITROGEN 12 MG/DL (7-18); C REACTIVE PROTEIN QUANTITATIV 0.33 MG/DL (0.00-0.30); CALCIUM LEVEL 8.9 MG/DL (8.5-10.1); CARBON DIOXIDE LEVEL 27 MEQ/L (21-32); CHLORIDE LEVEL 109 MEQ/L (98-107); CREATININE FOR GFR 0.72 MG/DL (0.55-1.30); FREE T4 1.09 NG/DL (0.76-1.46); GLOMERULAR FILTRATION RATE > 60.0 (>51); GLUCOSE, FASTING 90 MG/DL (70-100); LIPASE 138 U/L (73-393); POTASSIUM SERUM 4.4 MEQ/L (3.5-5.1); SODIUM LEVEL 141 MEQ/L (136-145); TOTAL PROTEIN 7.2 GM/DL (6.4-8.2)
[2020-11-12 10:34] LABS: HEMOGLOBIN A1c 5.5 %
== END ==
LOC: M WUC 08:13
PROVIDERS: ATTEND Family Medicine
DX: R10.13 Epigastric pain (principal)

== ENCOUNTER → 2020-11-17 | Outpatient (CLI) | payer OTHER ==
--- NOTE | 2020-11-17 08:15 | REP ---
INDICATION: RUQ ABD PAIN COMPARISON: None. TECHNIQUE: Real time murillo scale ultrasound examination using curved array transducer. FINDINGS: Liver is mildly echogenic suggesting fatty infiltration without focal hepatic lesion identified. Pancreas is incompletely evaluated due to interposed bowel gas. The gallbladder is contracted and there is suggestion for small gallstone versus polyp at the gallbladder neck. No wall thickening or pericholecystic fluid is appreciated. No sonographic Looney sign elicited. No biliary ductal dilatation is appreciated and the common bile duct measures 4.5 mm diameter. Right kidney is normal in reniform shape without hydronephrosis and measures 11.8 x 5.4 x 4.7 cm. No ascites in the visualized right upper quadrant. IMPRESSION: Possible small polyp versus gallstone. Mild hepatosteatosis. <Electronically signed by Skip Madsen > 11/17/20 2357
== END ==
LOC: M RAD 07:11
PROVIDERS: ATTEND Family Medicine
DX: R10.11 Right upper quadrant pain (principal)

== ENCOUNTER → 2020-11-28 | Outpatient (CLI) | payer OTHER ==
--- NOTE | 2020-11-28 15:06 | DEXAMM ---
INDICATION: M85.80 OSTEOPENIA. COMPARISON: 09/25/2018 as well as other prior exams. TECHNIQUE: Bone density was measured using dual-energy x-ray absorptiometry (DEXA). FINDINGS: AP SPINE L1-L4 BMD 1.294 g/cm2 Young Adult T-Score 0.8 Age Matched Z-Score 1.7. LT FEMUR, TOTAL BMD 0.886 g/cm2 Young Adult T-Score -1.0 Age Matched Z-Score -0.3. LT NECK BMD 0.786 g/cm2 Young Adult T-Score -1.8 Age Matched Z-Score -0.8. RT FEMUR, TOTAL BMD 0.914 g/cm2 Young Adult T-Score -0.7 Age Matched Z-Score 0.0. RT NECK BMD 0.814 g/cm2 Young Adult T-Score -1.6 Age Matched Z-Score -0.6. IMPRESSION: There is normal bone density of the spine. There is low bone density of the left hip. There is low bone density of the right hip. The density of the spine has decreased 7.0% since the initial exam on 03/12/2011. The density of the spine decreased 1.4% since most recent exam on 09/25/2018. The density of the left hip has decreased 6.6% since initial exam on 03/12/2011. The density of the left hip has decreased 0.2% since most recent exam on 09/25/2018. The density of the right hip has decreased 7.5% since the initial exam on 03/12/2011. The density of the right hip has decreased 0.4% since the most recent exam on 09/25/2018. FOLLOW-UP: Recommendation for the next bone density exam: 2 years. <Electronically signed by Anatoly Avila > 11/28/20 5613
--- NOTE | 2020-11-28 15:30 | REPMRS ---
Patient History The patient states she has not had a clinical breast exam in over a year. Family history of breast cancer in paternal cousin, colorectal cancer in paternal aunt. Benign excisional biopsy of the right breast, 1996. No Hormone Replacement Therapy Patient states no breast complaints today. Patient has signed MRS History Sheet. Digital Woman Screen Mammo: November 28, 2020 - Exam #: [id number] Bilateral CC and MLO view(s) were taken. Technologist: Maryann Francis, Technologist Prior study comparison: October 16, 2019, bilateral digital woman screen mammo performed at [facility]. July 12, 2018, bilateral digital woman screen mammo performed at [facility]. FINDINGS: There are scattered fibroglandular densities. Screening. Digital screening (2D) mammography was performed bilaterally in the CC and MLO projections. Additionally, breast tomosynthesis (3D mammography) was performed bilaterally in the CC and MLO projections. Todays exam was compared to the prior exam/exams. By history, the patient has no complaints of a palpable breast abnormality or other significant breast complaints. The Volpara volumetric breast density category is B, there are scattered areas of fibroglandular densities. The breasts are unchanged in size and shape. There are no lopez-soft tissue densities or spiculated masses. There is no internal architectural distortion. There are no suspicious lopez-calcific clusters. Skin thickening or nipple retraction is not present. IMPRESSION: BI-RADS Category 2- Benign Findings. There is no evidence of malignant alteration of the breasts. Followup examination recommended in one year. This mammogram was read with the assistance of [facility],an FDA approved computer aided detection system for mammography. The lifetime Tyrer-Cuzick score is 9.8%. Negative x-ray reports should not delay surgical consultation if a dominant or clinically suspicious mass is present. Not all breast cancers can be identified by mammography. Therefore, we recommend that you continue to perform regular breast self-examination and physical examination and then promptly contact your physician of any concerns or changes. Adenosis and dense breasts may obscure an underlying neoplasm. No significant changes when compared with prior studies. Assessment: BI-RADS/ACR category 2 mammogram. Benign Findings. Recommendation Routine screening mammogram of both breasts in 1 year. Electronically Signed By: Jasson Gannon MD 11/28/20 2309
== END ==
LOC: M WHC 14:02
PROVIDERS: ATTEND Family Medicine
DX: Z12.31 Encounter for screening mammogram for malignant neoplasm of breast (principal); M85.851 Other specified disorders of bone density and structure, right thigh; M85.852 Other specified disorders of bone density and structure, left thigh

== ENCOUNTER → 2020-12-29 | Outpatient (CLI) | payer OTHER ==
[~2020-12-29] MED LIST changes: +TALT80IN7 SQ
[2020-12-29 15:58] LABS: BASO # 0.1 10^3/uL (0.0-0.2); BASO % 0.6 % (0.0-1.0); EOS # 0.1 10^3/uL (0.0-0.5); HEMATOCRIT 41.2 % (36.0-47.0); HEMOGLOBIN 13.5 g/dl (12.0-15.5); LYMPH # 3.1 10^3/uL (1.5-5.0); LYMPH % 30.7 % (24.0-44.0); MEAN CORPUSCULAR HEMOGLOBIN 30.4 pg (27.0-33.0); MEAN CORPUSCULAR HGB CONC 32.8 g/dl (32.0-36.5); MEAN CORPUSCULAR VOLUME 92.8 fl (80.0-96.0); MONO # 0.8 10^3/uL (0.0-0.8); MONO % 7.4 % (2.0-8.0); NEUTROPHILS # 6.1 10^3/uL (1.5-8.5); PLATELET COUNT, AUTOMATED 251 10^3/uL (150-450); RED BLOOD COUNT 4.44 10^6/uL (4.00-5.40); WHITE BLOOD COUNT 10.1 10^3/uL (4.0-10.0)
[2020-12-29 17:33] LABS: ALBUMIN 3.8 GM/DL (3.2-5.2); ALT/SGPT 35 U/L (12-78); BILIRUBIN,TOTAL 0.6 MG/DL (0.2-1.0); BLOOD UREA NITROGEN 10 MG/DL (7-18); CALCIUM LEVEL 9.5 MG/DL (8.5-10.1); CARBON DIOXIDE LEVEL 29 MEQ/L (21-32); CHLORIDE LEVEL 110 MEQ/L (98-107); GLOMERULAR FILTRATION RATE > 60.0 (>51); GLUCOSE, FASTING 85 MG/DL (70-100); LIPASE 132 U/L (73-393); NT-PRO BNP 54 PG/ML (<125); POTASSIUM SERUM 4.8 MEQ/L (3.5-5.1); SODIUM LEVEL 143 MEQ/L (136-145)
== END ==
LOC: M WUC 11:41
PROVIDERS: ATTEND Family Medicine
DX: R10.11 Right upper quadrant pain (principal)

== ENCOUNTER → 2020-12-31 | Outpatient (CLI) | payer OTHER | LOC: M LABSMTC 11:09 | PROVIDERS: ATTEND Anesthesiology | DX: Z01.812 Encounter for preprocedural laboratory examination (principal); Z11.52 Encounter for screening for COVID-19 ==

== ENCOUNTER 2021-01-05 10:56 | Day surgery (SDC) | payer OTHER ==
[~2021-01-05] VITALS: Ht 162.6 cm; Wt 85.3 kg
[~2021-01-05 10:56] MED LIST changes: +AMPICILLIN SOD/SULBACTAM SOD 3 GM in D5W MINI-BAG PLUS 100 ML IV ONE; +HEPARIN SOD (PORCINE) 5000UNITS/ML 1ML VIAL/SYRINGE SQ ONE; +INDOCYANINE GREEN 25MG VIAL (IC-GREEN) IV ONE; +LIDOCAINE 1% MDV 20ML VIAL SQ PRN; +LR 1,000 ML IV ONE
--- OUTSIDE RECORDS SUMMARY | 2021-01-05 10:58 | CCD | Continuity of Care Document ---
Author Author Kelsey RAINEY Organization Unknown Address [address] [place] [address], [address] [address] Phone [phone] Problems Description No Information Available Social History Type Date Description Comments Sex Unknown Allergies, Adverse Reactions, Alerts Description No Information Available Medications Active Medications SIG Qnty Indications Ordering Provide r Date Gabapentin 100mg Capsules 1-2 by mouth three times a day 90caps Adam Delong MD 10/13/2020 Percocet 5-325mg Tablets 1-2 tabs q 4-6 hours prn/pain 40tabs Adam Delong MD 03/13/2008 Colace 100mg Capsules 1 po bid, hold for diarrhea 60caps Adam Delong MD 03/13/2008 Bextra 20MG 1 qd X 7 Day 7units Adam Burrell MD 1 04/27/2003 Anaprox DS 1 bid PO pc 15units Adam Burrell MD Bextra 20MG 1 qd X 7 Day 7units Adam Burrell MD 1 04/08/2003 Immunizations Description No Information Available Vital Signs Date Vital Result Comment 12/03/2020 4:47pm Body Temperature 97.3 F Height 63.5 inches 5'3.50" Weight 188.00 lb BMI (Body Mass Index) 32.8 kg/m2 10/13/2020 11:46am Body Temperature 97.1 F Height 64 inches 5'4" Weight 189.50 lb BMI (Body Mass Index) 32.5 kg/m2 Results Description No Information Available Procedures Date Code Description Status 12/03/2020 34079 X-Ray Shoulder Complete Complete d 10/13/2020 24728 Office/Outpatient New Moderate M DM 45-59 Minutes Completed 10/13/2020 87754 X-Ray Hip Unilateral With Pelvis 2-3 Views Completed 10/13/2020 56895 X-Ray Spine Lumbosacral Complete Inc Bending Views Min Of 6 Completed Medical Devices Description No Information Available Encounters Type Date Location Provider Dx Diagnosis Office Visit 10/13/2020 10:30a [place] Adam Delong MD M25.552 Pain in left hip M43.16 Spondylolisthesis, lumbar re gion Assessments Date Code Description Provider 12/03/2020 S40.011A Contusion of right shoulder, ini tial encounter Rubén Rainey, P.A. 10/13/2020 M25.552 Pain in left hip Adam Delong MD 10/13/2020 M43.16 Spondylolisthesis, lumbar region Adam Delong MD Plan of Treatment 12/03/2020 - Rubén Rainey, P.A.* S40.011A Contusion of right shoulder, initial encounter* Follow up:* 3-4 weeks with [facility] rt shoulder re-check Functional Status Description No Information Available Mental Status Description No Information Available Referrals Description No Information Available
--- OUTSIDE RECORDS SUMMARY | 2021-01-05 10:58 | CCD ---
Continuity of Care Document (CCD) Created on: 12/11/2020 EvelinaKelsey Elena External Reference #: [id number] : [id number] Sex: Female Author Author Kelsey RAINEY Organization Unknown Address [address] [place] [address], [address] [address] Phone [phone] Problems Description No Information Available Social History Type Date Description Comments Sex Unknown Allergies and adverse reactions Description No Information Available Medications Active Medications [...] Available Procedures Date Code Description Status 12/03/2020 29158 Office/Outpatient Established Lo w MDM 20-29 Min Completed 12/03/2020 46607 X-Ray Shoulder Complete Complete d 10/13/2020 05502 Office/Outpatient New Moderate M DM 45-59 Minutes Completed 10/13/2020 11467 X-Ray Hip Unilateral With Pelvis 2-3 Views Completed 10/13/2020 27512 X-Ray Spine Lumbosacral Complete Inc Bending Views Min Of 6 Completed Medical Devices Description No Information Available Encounters Type Date Location Provider Dx Diagnosis Office Visit 12/03/2020 4:[place]p [place] M25.511 Pain in right shoulder Office Visit 10/13/2020 10:30a [place] M25.552 Pain in left hip M43.16 Spondylolisthesis, lumbar re gion Assessments Date Code Description Provider 12/03/2020 M25.511 Pain in right shoulder Kevyn Govea 10/13/2020 M25.552 Pain in left hip Adam Delong MD 10/13/2020 M43.16 Spondylolisthesis, lumbar region Adam Delong MD Plan of Treatment Future Appointment(s):* 12/24/2020 5:30 pm - Kevyn Hayward at [place] 12/03/2020 - Kevyn Hayward* M25.511 Pain in right shoulder* Follow up:* 3-4 weeks with [facility] rt shoulder re-check Functional Status Description No Information Available Mental Status Description No Information Available Referrals Description No Information Available
--- OUTSIDE RECORDS SUMMARY | 2021-01-05 10:58 | CCD ---
Author Author [facility] Organization [facility] Address Unknown Phone Unavailable Care Team Providers Care Student Services Counselor Name Role Phone Delfino Aburto Unavailable PROBLEMS Type Condition ICD9-CM Code [id number] Code Onset Dates Condition S tatus W/U Status Risk SNOMED Code Notes Problem Vitamin D deficiency E55.9 Active confirmed 25669476 Problem Colon cancer screening Z12.11 Active confirmed 420556086 Problem Mixed hyperlipidemia E78.2 Active confirmed 849831766 Problem Palpitations R00.2 Active confirmed 5355162 2 Problem Borderline osteopenia M85.80 Active confirmed 881543564 Problem Overweight E66.3 Active confirmed 215420652 Problem Vitamin B12 deficiency E53.8 Active confirmed 858977551 Problem DJD (degenerative joint disease), cervical M50.30 Active confirmed 53358266 Problem Hx of colonic polyps Z86.010 Active confirmed 395789625 Problem Migraine without aura, not intractable, with sta tus migrainosus G43.001 Active confirmed 81041337 Problem Family history of colon cancer Z80.0 Active confir med 322098178 Problem IFG (impaired fasting glucose) R73.01 Active confir med 378433768 Problem High risk medication use Z79.899 Active confirmed 743966531485383 Problem Breast cancer screening Z12.39 Active confirmed 178751234 Problem Family history of breast cancer Z80.3 Active confi rmed 739387502 Problem Metatarsalgia of right foot M77.41 Active conf irmed 426910675763957 Problem Cervical cancer screening Z12.4 Active confirmed 083923611 Problem Lumbar spondylosis M47.816 Active confirmed 178493403 Problem Hypothyroidism, unspecified E03.9 Active confirmed 25941762 Problem Osteoarthritis of knees, bilateral M17.0 Activ e confirmed 332454383 Problem Psoriatic arthritis L40.50 Active confirmed 712597032 Problem Plaque psoriasis L40.0 Active confirmed 200 756136 Problem MARK II (cervical intraepithelial neoplasia II) N87 .1 Active confirmed 044419858 Problem Hx pulmonary embolism Z86.711 Active confirmed 308898710 ALLERGIES Allergen (clinical drug ingredient) Drug/Non Drug Allergy do cumented on EMR Reaction Allergy Type Onset Date Status Estrogens Conjugated Pulmonary embolism Drug Allergy Active ENCOUNTERS from 1965 to 2020-12-30 Encounter Location Date Provider Diagnosis [facility] [address] [facility] [phone] [place] [address] Dec, Delfino Aburto IMMUNIZATIONS Vaccine Route Administration Date Status COVID-19 dose #2 given elsewhere Unspecified Unknown Jun Administered COVID-19 dose #1 given elsewhere Unspecified Unknown May Administered Influenza 6mo & up Fluzone IM Intramuscular Dec 22, 2015 Admi nistered Influenza 6mo & up Fluzone IM Intramuscular Dec 24, 2014 Admi nistered Influenza 6mo & up Fluzone IM Intramuscular Dec 12, 2013 Admi nistered Influenza 6mo & up Fluzone IM Intramuscular Mar 29, 2013 Admi nistered Influenza 6mo & up Fluzone IM Intramuscular Apr 21, 2010 Admi nistered SOCIAL HISTORY Sex Assigned At : Social History Observation Description Sex Assigned At Unknown Education: Question Answer Notes Level of Education: [employer] Audit Question Answer Notes Total Score: 3 Interpretation: Alcohol Education Language: Question Answer Notes Languages spoken: Slovak Congregational: Question Answer Notes Congregational 33 None Sexual Hx: Question Answer Notes Had sex in the last 12 months (vaginal, oral, or anal)? Yes Have you ever had an STD? Yes with Men only Use protection? No Herpes? Yes Drug and Alcohol Question Answer Notes Total Score: 0 Interpretation: No problems reported Alcohol Screening: Question Answer Notes Did you have a drink containing alcohol in the past year? Ye s Points 3 Interpretation Positive How often did you have six or more drinks on one occas ion in the past year? Never (0 points) How many drinks did you have on a typica l day when you were drinking in the past year? 1 or 2 (0 points) How often did you have a drink containing alcohol in t he past year? Two to three times per week (3 points) BMI Care Goal Follow-Up Question Answer Notes Above Normal BMI Follow-Up Giving encouragement to exercise REASON FOR REFERRAL No Information VITAL SIGNS No information MEDICATIONS Medication SIG (Take, Route, Frequency, Duration) Notes Start Da te End Date Status Topiramate 25 mg 1 tablet Orally Daily for 90 day(s) Active Taltz 80 MG/ML Maintenance Dose: Inject 80m g (1 injection) under skin every 4 weeks Subcutaneous Every 4 weeks for 84 days Active Zomig ZMT 5 MG 1 tablet on the tongue and a llow to dissolve at onset of headache, may repeat after 2 hours if headache returns Orally Twice a day prn for 90 day(s) Active Levothyroxine Sodium 100 MCG 1 tablet on an empty stom ach in the morning Orally Once a day for 90 day(s) Active Vitamin D (Cholecalciferol) 50 MCG (2000 UT) 1 capsule Orally Once a day Active Cyclobenzaprine HCl 10 MG 1 tablet as needed Orally Three times a day prn Active Cyanocobalamin 1000 MCG 1 tablet Orally Once a day for 30 day(s) Active PROCEDURES No Information RESULTS No Results REASON FOR VISIT No Information MEDICAL (GENERAL) HISTORY Type Description Date Medical History DJD LS sp 03/2008 L5-S1 disce ctomy with Dr. Delong with post operative massive PE with secondary EMD, sp permanent [place] filter and 6M VTE Medical History hypothyroidism, autoimmune Medical History migraine headaches, common t ype-October 2008 normal MRI of the brain without contrast Medical History obesity Medical History history of palpitations August 2009 normal TTE-Antecol Medical History generalized plaque psoriasis/PSA Medical History bilateral knee osteoarthriti s-negative right knee x-ray November 2009 -[facility], - HLAB27 Medical History cervical DJD with C5-C7 smal l central bulges, most pronounced C5/6 c mild CCS by 08/2016 MRI Medical History 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 normal shou lder xray Medical History lumbar DJD-L HNP c L5 root compression b y 08/2017 MRI Medical History tubular adenoma-04/[id number]-F Medical History Tammy Vera breast cancer risk score 10 .42% Medical History Gilbert's disease-01/2007 total bili 1.7 Medical History 11/20/19 colpo MARK II sp 12/31/19 [facility] Medical History vitamin D deficiency Medical History B12 deficiency Medical History IFG Surgical History tonsillectomy 1984 Surgical History diskectomy 2009 Surgical History tubal ligation 1991 Surgical History carpal tunnel release Surgical History right breast lumpectomy Dr Stefan severino interductal papilloma, hyperplasia no atypia Hospitalization History as above Goals Section No Information Health Concerns No Information MEDICAL EQUIPMENT No Information MENTAL STATUS No Information FUNCTIONAL STATUS No Information ASSESSMENTS No Information PLAN OF TREATMENT Medication Medication Name Sig Start Date Stop Date Topiramate 25 mg 1 tablet Orally Daily for 90 day(s) Vitamin D (Cholecalciferol) 50 MCG (1999) 1 capsule Orally On ce a day Cyclobenzaprine HCl 10 MG 1 tablet as needed Orally Three times a day prn Levothyroxine Sodium 100 MCG 1 tablet on an empty stom ach in the morning Orally Once a day for 90 day(s) Cyanocobalamin 1000 MCG 1 tablet Orally Once a day for 30 day(s) Zomig ZMT 5 MG 1 tablet on the tongue and a llow to dissolve at onset of headache, may repeat after 2 hours if headache returns Orally Twice a day prn for 90 day(s) Next Appt Details Provider Name:Delfino Aburto, 2021-03-13 0 8:15:00 AM, [address] [facility], , [place], [address], Insurance Providers Payer Name Payer Address Payer Phone Insured Name Patient Relati onship to Insured Coverage Start Date Coverage End Date [facility] [id number] [facility] [id number] [id number]
--- OUTSIDE RECORDS SUMMARY | 2021-01-05 10:58 | CCD ---
Author Author [facility] Organization [facility] Address Unknown Phone Unavailable Care Team Providers Care Polysomnography Tech Name Role Phone Delfino Aburto Unavailable PROBLEMS Type Condition ICD9-CM Code LGT39-NM Code Onset Dates Condition S tatus W/U Status Risk SNOMED Code Notes Problem Vitamin D deficiency E55.9 Active confirmed 99331872 Problem Colon cancer screening Z12.11 Active confirmed 984731684 Problem Mixed hyperlipidemia E78.2 Active confirmed 036509191 Problem Palpitations R00.2 Active confirmed 3606818 2 Problem Borderline osteopenia M85.80 Active confirmed 565590559 Problem Overweight E66.3 Active confirmed 201854201 Problem Vitamin B12 deficiency E53.8 Active confirmed 546751381 Problem DJD (degenerative joint disease), cervical M50.30 Active confirmed 30501830 Problem Hx of colonic polyps Z86.010 Active confirmed 055582115 Problem Migraine without aura, not intractable, with sta tus migrainosus G43.001 Active confirmed 96595124 Problem Family history of colon cancer Z80.0 Active confir med 478950186 Problem IFG (impaired fasting glucose) R73.01 Active confir med 889733657 Problem High risk medication use Z79.899 Active confirmed 042795785533624 Problem Breast cancer screening Z12.39 Active confirmed 196323845 Problem Family history of breast cancer Z80.3 Active confi rmed 979413832 Problem Metatarsalgia of right foot M77.41 Active conf irmed 999774737673491 Problem Cervical cancer screening Z12.4 Active confirmed 386650260 Problem Lumbar spondylosis M47.816 Active confirmed 520923447 Problem Hypothyroidism, unspecified E03.9 Active confirmed 39944478 Problem Osteoarthritis of knees, bilateral M17.0 Activ e confirmed 627310086 Problem Psoriatic arthritis L40.50 Active confirmed 106134252 Problem Plaque psoriasis L40.0 Active confirmed 200 003260 Problem MARK II (cervical intraepithelial neoplasia II) N87 .1 Active confirmed 304476299 Problem Hx pulmonary embolism Z86.711 Active confirmed 999303324 ALLERGIES Allergen (clinical drug ingredient) Drug/Non Drug Allergy do cumented on EMR Reaction Allergy Type Onset Date Status Estrogens Conjugated Pulmonary embolism Drug Allergy Active ENCOUNTERS from 1965 to 2020-12-02 Encounter Location Date Provider Diagnosis [facility] [address] [facility] [phone] [place] [address] Nov, Delfino Aburto Migraine without aura, not i ntractable, with status migrainosus G43.001 IMMUNIZATIONS Vaccine Route Administration Date Status COVID-19 [...] Education Language: Question Answer Notes Languages spoken: Luxembourgish Anglican: Question Answer Notes Anglican 33 None Sexual Hx: Question Answer Notes [...] Notes Start Da te End Date Status Zomig ZMT 5 MG 1 tablet on the tongue and a llow to dissolve at onset of headache, may repeat after 2 hours if headache returns Orally Twice a day prn for 90 day(s) Active Cyclobenzaprine HCl 10 MG 1 tablet as needed Orally Three times a day prn Active Topiramate 25 mg 1 tablet Orally Daily for 90 day(s) Active Vitamin D (Cholecalciferol) 50 MCG (2000 UT) 1 capsule Orally Once a day Active Taltz 80 MG/ML Maintenance Dose: Inject 80m g (1 injection) under skin every 4 weeks Subcutaneous Every 4 weeks for 84 days Active Levothyroxine Sodium 100 MCG 1 tablet on an empty stom ach in the morning Orally Once a day for 90 day(s) Active Cyanocobalamin 1000 MCG 1 tablet Orally Once a day for 30 day(s) Active PROCEDURES No Information RESULTS No Results REASON FOR VISIT New Refill Request MEDICAL (GENERAL) HISTORY Type Description Date Medical History DJD LS sp 03/2008 L5-S1 disce ctomy with Dr. Delong with post operative massive PE with secondary EMD, status post [place] filter in [address] Anderson. She refused lifelong Coumadin. Medical History hypothyroidism, autoimmune Medical History migraine headaches, common t ype-October 2008 normal MRI of the brain without contrast Medical History obesity Medical History HIDA scan c gbEF 32% (normal 48), WNL GE S-03/24/2007// Medical History history of palpitations August 2009 normal TTE-Antecol Medical History generalized plaque psoriasis/PSA Medical History bilateral knee osteoarthriti s-negative right knee x-ray November 2009 -[facility], - HLAB27 Medical History cervical DJD with C5-C7 smal l central bulges, most pronounced C5/6 c mild CCS by 08/2016 MRI Medical History PE 2008 post op back surgery , post-op permanent IVC filter placed Medical History 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 normal shou lder xray Medical History lumbar DJD-L HNP c L5 root compression b y 08/2017 MRI Medical History tubular adenoma-04/[id number]-N Medical History Tamym Vera breast cancer risk score 10 .42% Medical History Gilbert's disease-01/2007 total bili 1.7 Medical History 11/20/19 colpo MARK II sp 12/31/19 L[facility] Surgical History tonsillectomy 1983 Surgical History diskectomy 2008 Surgical History tubal ligation 1991 Surgical History carpal tunnel release Surgical History right breast lumpectomy Dr Stefan severino interductal papilloma, hyperplasia no atypia Hospitalization History as above Goals Section No Information Health Concerns No Information MEDICAL EQUIPMENT No Information MENTAL STATUS No Information FUNCTIONAL STATUS No Information ASSESSMENTS Encounter Date Diagnosis Assessment Notes Treatment Notes Treatm ent Clinical Notes Nov, Migraine without aura, not i ntractable, with status migrainosus (ICD-10 - G43.001) PLAN OF TREATMENT Medication Medication Name Sig Start Date Stop Date Vitamin D (Cholecalciferol) 50 MCG (1999) 1 capsule Orally On ce a day Zomig ZMT 5 MG 1 tablet on the tongue and a llow to dissolve at onset of headache, may repeat after 2 hours if headache returns Orally Twice a day prn for 90 day(s) Topiramate 25 mg 1 tablet Orally Daily for 90 day(s) Levothyroxine Sodium 100 MCG 1 tablet on an empty stom ach in the morning Orally Once a day for 90 day(s) Cyanocobalamin 1000 MCG 1 tablet Orally Once a day for 30 day(s) Cyclobenzaprine HCl 10 MG 1 tablet as needed Orally Three times a day prn Next Appt Details Provider Name:Delfino Aburto, 2020-12-29 0 9:45:00 AM, [address] [place] [address] , [place], [address], Provider Name:Delfino Aburto, 2021-03-13 0 8:15:00 AM, [address] [place] [address] , [place], [address], Insurance Providers Payer Name Payer Address Payer Phone Insured Name Patient Relati onship to Insured Coverage Start Date Coverage End Date [facility] [id number] [facility] [phone] [employer] [id number]
--- OUTSIDE RECORDS SUMMARY | 2021-01-05 10:58 | CCD ---
Author Author [facility] Organization [facility] Address Unknown Phone Unavailable Care Team Providers Care Architectural Designer Name Role Phone Delfino Aburto Unavailable PROBLEMS Type Condition ICD9-CM Code ASN83-WD Code Onset Dates Condition S tatus W/U Status Risk SNOMED Code Notes Problem Vitamin D deficiency E55.9 Active confirmed 83272535 Problem Colon cancer screening Z12.11 Active confirmed 184500870 Problem Mixed hyperlipidemia E78.2 Active confirmed 562193899 Problem Palpitations R00.2 Active confirmed 2230013 2 Problem Borderline osteopenia M85.80 Active confirmed 763221607 Problem Overweight E66.3 Active confirmed 943884265 Problem Vitamin B12 deficiency E53.8 Active confirmed 430915894 Problem DJD (degenerative joint disease), cervical M50.30 Active confirmed 57496734 Problem Hx of colonic polyps Z86.010 Active confirmed 874811840 Problem Migraine without aura, not intractable, with sta tus migrainosus G43.001 Active confirmed 50583415 Problem Family history of colon cancer Z80.0 Active confir med 304644945 Problem IFG (impaired fasting glucose) R73.01 Active confir med 253744243 Problem High risk medication use Z79.899 Active confirmed 070545505876229 Problem Breast cancer screening Z12.39 Active confirmed 787181396 Problem Family history of breast cancer Z80.3 Active confi rmed 047660310 Problem Metatarsalgia of right foot M77.41 Active conf irmed [id number] Problem Cervical cancer screening Z12.4 Active confirmed 335625814 Problem Lumbar spondylosis M47.816 Active confirmed 011781811 Problem Hypothyroidism, unspecified E03.9 Active confirmed 05418477 Problem Osteoarthritis of knees, bilateral M17.0 Activ e confirmed 099734347 Problem Psoriatic arthritis L40.50 Active confirmed 174233844 Problem Plaque psoriasis L40.0 Active confirmed 200 858046 Problem MARK II (cervical intraepithelial neoplasia II) N87 .1 Active confirmed 539394138 Problem Hx pulmonary embolism Z86.711 Active confirmed 684243554 ALLERGIES Allergen (clinical drug ingredient) Drug/Non Drug Allergy do cumented on EMR Reaction Allergy Type Onset Date Status Estrogens Conjugated Pulmonary embolism Drug Allergy Active ENCOUNTERS from 1965 to 2020-12-30 Encounter Location Date Provider Diagnosis [facility] [address] [facility] [phone] [place] [address] Dec, Delfino Aburto RUQ pain R10.11 ; Preoperati ve clearance Z01.818 ; Hx pulmonary embolism Z86.711 ; Dyspepsia R10.13 ; Borderline osteopenia M85.80 ; Palpitations R00.2 ; Psoriatic arthritis L40.50 ; Hypothyroidism, unspecified E03.9 ; Plaque psoriasis L40.0 ; Vitamin D deficiency E55.9 ; IFG (impaired fasting glucose) R73.01 ; Overweight E66.3 ; Lumbar spondylosis M47.816 ; DJD (degenerative joint disease), cervical M50.30 ; Vitamin B12 deficiency E53.8 ; Migraine without aura, not intractable, with status migrainosus G43.001 ; Hx of colonic polyps Z86.010 ; Osteoarthritis of knees, bilateral M17.0 ; Mixed hyperl ipidemia E78.2 ; Metatarsalgia of right foot M77.41 ; Breast cancer screening Z12.39 ; Cervical cancer screening Z12.4 and Colon cancer screening Z12.11 IMMUNIZATIONS Vaccine Route Administration Date Status COVID-19 [...] Education Language: Question Answer Notes Languages spoken: Malay Christian: Question Answer Notes Christian 32 None Sexual Hx: Question Answer Notes [...] REASON FOR REFERRAL No Information VITAL SIGNS Weight 189.4 lbs Dec, Weight-kg 85.91 kg Dec, Height 64 in Dec, BMI 32.51 kg/m2 Dec, Heart Rate 83 /min Dec, Respiratory Rate 20 /min Dec, Temperature 97.8 degrees Fahrenheit Dec, Oximetry 97% Dec, Blood pressure systolic 120 mm Hg Dec, Blood pressure diastolic 62 mm Hg Dec, MEDICATIONS Medication SIG (Take, Route, Frequency, Duration) [...] day(s) Active Vitamin D (Cholecalciferol) 50 MCG (1999) 1 capsule Orally Once a day Active Cyclobenzaprine HCl 10 MG 1 tablet as needed Orally Three times a day prn Active Cyanocobalamin 1000 MCG 1 tablet Orally Once a day for 30 day(s) Active PROCEDURES from 1964 to 2020-12-30 Procedure Date Ordered Result Body Site ELECTROCARDIOGRAM, COMPLETE EKG 2020-12-29 N/A RESULTS Component Value Reference Range NT-PRO BNP Reviewed date:12/29/2020 17:40:34 Interpretation: Performing Lab:[facility] [address] [facility] [address] , ,[place] [address] NT-PRO BNP 54 <125 CBC with Differential Reviewed date:12/29/2020 16:28:29 Interpretation: Performing Lab:[facility] [address] [facility] [address] , ,[place] [address] WHITE BLOOD COUNT 10.1 4.0-10.0 RED BLOOD COUNT 4.44 4.00-5.40 HEMOGLOBIN 13.5 12.0-15.5 HEMATOCRIT 41.2 36.0-47.0 MEAN CORPUSCULAR VOLUME 92.8 80.0-96.0 MEAN CORPUSCULAR HEMOGLOBIN 30.4 27.0-33.0 MEAN CORPUSCULAR HGB CONC 32.8 32.0-36.5 RED CELL DISTRIBUTION WIDTH 12.4 11.5-14.5 PLATELET COUNT, AUTOMATED 251 150-450 NEUTROPHILS % 60.0 36.0-66.0 LYMPH % 30.7 24.0-44.0 MONO % 7.4 2.0-8.0 EOS % 1.0 0.0-3.0 BASO % 0.6 0.0-1.0 NEUTROPHILS # 6.1 1.5-8.5 LYMPH # 3.1 1.5-5.0 MONO # 0.8 0.0-0.8 EOS # 0.1 0.0-0.5 BASO # 0.1 0.0-0.2 Comprehensive Metabolic Profile (CMP) Reviewed date:12/29/2020 17:40:29 Interpretation: Performing Lab:[facility] [address] [facility] [id number] , ,[place] [address] GLUCOSE, FASTING 85 70-100 BLOOD UREA NITROGEN 10 7-18 CREATININE FOR GFR 0.80 0.55-1.30 GLOMERULAR FILTRATION RATE > 60.0 >51 SODIUM LEVEL 143 136-145 POTASSIUM SERUM 4.8 3.5-5.1 CHLORIDE LEVEL 110 98-107 CARBON DIOXIDE LEVEL 29 21-32 CALCIUM LEVEL 9.5 8.5-10.1 AST/SGOT 20 7-37 ALT/SGPT 35 12-78 ALKALINE PHOSPHATASE 78 45-117 BILIRUBIN,TOTAL 0.6 0.2-1.0 TOTAL PROTEIN 8.0 6.4-8.2 ALBUMIN 3.8 3.2-5.2 ALBUMIN/GLOBULIN RATIO 0.9 1.2-2.2 LIPASE Reviewed date:12/29/2020 17:40:32 Interpretation: Performing Lab:[facility] [address] [facility] [id number] , ,[facility] LIPASE [phone] REASON FOR VISIT Pre op clearance for Robotic Colsectomy- General- Dr. Pino- [facility]- 01/05/21, Jeffrey ivory @ [phone] [facility] # [phone] DX: K80.20 MEDICAL (GENERAL) HISTORY Type Description Date Medical History DJD LS sp 03/2008 L5-S1 disce ctomy with Dr. 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-mmoby-T Medical History Tammy Vera breast cancer risk score 10 .42% Medical History Gilbert's disease-01/2007 total bili 1.7 Medical History 11/20/19 colpo MARK II sp 12/31/19 [facility] Medical History vitamin D deficiency Medical History B12 deficiency Medical History IFG Surgical History tonsillectomy 1983 Surgical History diskectomy 2008 Surgical History tubal ligation 1991 Surgical History carpal tunnel release Surgical History right breast lumpectomy Dr Stefan severino interductal papilloma, hyperplasia no atypia 1979' Hospitalization History as above Goals Section No Information Health Concerns No Information MEDICAL EQUIPMENT No Information MENTAL STATUS No Information FUNCTIONAL STATUS No Information ASSESSMENTS Encounter Date Diagnosis Assessment Notes Treatment Notes Treatm ent Clinical Notes Dec, Preoperative clearance (ICD-10 - Z01.818) On 12/29/20 the patient had a stable CBCD, CMP and PT/APTT. On 12/29/20 the patient's EKG revealed normal sinus rhythm at 61 beats per minute, no hypertrophy, normal axis and inferior repolarization abnormality similar to01/14/2009 EKG. On the AM of the surgery, the patient will take NO MEDICATIONS. Last Taltz dose 12/08/20; will hold 11/4 dose to 14D postop 01/19/21. The patient will hold aspirin and ANY NSAID for five (5) days prior to surgery. The patient is currently medically optimized for the above surgery. By the modified RCRI, the patient's 30 day MACE risk is 4%. The patient wishes to assume this risk and proceed with the above surgery. Agree with lesly-operative LWMH and aggressive rearly mobilization given previous severe PE with lumbar laminectomy. Dec, RUQ pain (ICD-10 - R10.11) mother c ho acalculus cholecystitis (03/11/20 -H pylori IgG) 11/17/20 GB US: favor small stone at gb neck; ergo, defer repeat HIDA given risk of inducing acute cholecystitis and referred for tectomy consideration 11/11/20 given concerning for recurrent bilary colic (possibly partially masked by IL-17i); 11/12/20 checked CBCD/CMP/lipase WNL; ergo gb US, then HIDA EF and given persistent NBNB diarrhea since ~10/08/20 checked GI PCR (no precedent abx) (which has improved over ~last 3D). 11/03/20 Adebayo for recurrent severe flare again ~4H p dinner (hot dog c mac/cheese!)-CT AP, BW WNL (no episode since) 03/19/20 5 episodes of epigastric pain/RUQ pain since 11/2019 usually ~6H p dinner (~MN when laying in bed), lasting ~4-6H, often improving c NBNB vomiting (often undigested food) therefore, favor duodenitis +/- borderline GOO; hold 8 oz qAM coffee/chloé 70 qW, + panto 40 BID (but only used x 1M) 03/13/19 Adebayo ER-last flare-normal CBCD, CMP, lipase, UA, LA 1 x WBC 12.2; RUQ US minimla gb wall thickening 4 mm, fatty liver, no stones-felt bilary colic and referred to Dr. Samuel 07/19/07 UGISBFT few duodenal loop diverticula 03/14/07 HIDA scan visualization gb in 20 min c gb EF 32% (normal 48) 03/14/07 GES WNL T1/2 83 min Dec, Hx pulmonary embolism (ICD-10 - Z86.711) No recurrrent VTE sx (IVC filter still in place by 07/29/17 LS XR) 12/2008 post op laminectomy sp severe B PE, then permanent IVC filter/6M VKA aCL Ab (IgGAM): - 09/25/08 [id number] prothrombin mutation: 10/22/08 Dec, Dyspepsia (ICD-10 - R10.13) Dec, Borderline osteopenia (ICD-10 - M85.80) 03/2023 DXA DXA -1.6/-1.8/0.8 c 0/0/-1 c/w 09/25/18 (had taken 16M chloé); ergo, plan restart chloé at fu given abdominal pain was probably bilary 09/2018 -1.9/-1.6/1 c -6/-6/-7% change c/w 05/2016; therefore, + 11/2018 chloé 70 q7D given FRAX score and rate of loss; but stopped 03/2020 2 abdominal pain (favor biliary etiology) 05/2016 -0.5/-0.2/1.8 c 0.3/-0.8/-0.3% change c/w 03/2013; therefore, CCR 04/2019 - TTG Dec, Palpitations (ICD-10 - R00.2) Stable on current regimen Contingency: metoprolol tartrate 12.5 qAM/BID-prior on atenolol prior to PE for PAC/PVCs-patient defers rx given mainly asymptomatic 03/11/14 EKG NSR 64 bpm, low voltage limb, inferior repolarization abnormalities similar to 01/14/2009 EKG, K 4.7, Mg 2.1 Dec, Psoriatic arthritis (ICD-10 - L40.50) as per PP follows with Sonya 09/13/19 CCP 9,CRP/ESR 0.4/Dec, Hypothyroidism, unspecified (ICD-10 - E03.9) 05/2018 US hetero gland s n/c 11/12/20 2, 1.1 03/14/20 0.6, 1.2 09/09/19 0.22, 1.1 on 100 04/2019 4.6, 1.1; therefore, 88 to 100 05/2018 1.2, 1.2 11/2017 0.5, 1.0 07/2017 1.5, 1.0 on 88 11/2016 1.8 03/2014 2.6 10/2013 2.0 06/2013 5.5 therefore increased 75 to 88 10/2012 1.6 04/2012 2.8 12/2011 4.5 therefore LT4 62.5 increased to 75 08/2011 2.6 12/2010 TSH 2.4 on LT4 62.6 10/2010 TSH 3.1-increase LT4 from 50 to 62.5 Dec, Plaque psoriasis (ICD-10 - L40.0) as per PSA 06/19/19 ixekizumab (IL-17A antag) bolus/maintenance started by Sonya rachel marked improvement of PSA/PP 06/20/19 -B/C/TB Gold/HIV Dec, Vitamin D deficiency (ICD-10 - E55.9) 09/09/19 32, 8.8, 46; therefore, enocuraged compliance 04/2019 26, 8.9, 74; therefore, + D3 2K 10/2018 31, 9.7, 29 on light rx only; therefore, + D3 1K 05/2018 32, 9.5, 47 on light rx only 06/2015 23, 8.7, PTH 38; therefore, started D3 2K Dec, IFG (impaired fasting glucose) (ICD-10 - R73.01) Continue ADA diet no 1DR c DM, s hypo sx 03/14/20 5.2 (92, 11) 09/09/19 5.6 (94, 21) 04/2019 5.4 10/2018 A1C 5.5 (99, 9) 03/14/20 MAGDALENA/creatinine 9 Dec, Overweight (ICD-10 - E66.3) Encouraged weight loss Dec, Lumbar spondylosis (ICD-10 - M47.816) Stable on home PT and mariam 200 BID/cyclo 10 TID prn c flares 09/15/17 by apt LLE radic pain had improved and Dr. Lujan discussed ACDF C5/6 given cervical flare/migraine CARMEN 07/29/17 beginning 07/2017 sudden onset L paralumbar pain c 10/14 radicular pain c overuse (no trauma) to L ankle c overall mild weakness and by PE motor and sensory loss in L5>S1 distribution (obvious concern for nerve compression) therefore, LS xray done revealing ML DSN worst L5/1 s listhesis nor obvious NF narrowing; therefore, MRI LS ordered as per and referred to Dr. 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 Lujan who offered ACDF 07/2016 mild improvement c [facility] 05/2013 Celebrex 200 changed to Mobic 15 by insurance but patient never started 06/2012 established c Baljeet who offered C5/6 ACDF and started Neurontin 300 BID which patient states she did not start 2010-patient did not like [facility]-continue home PT 12/2014 -H pylori 25 Dec, 2020 Vitamin B12 deficiency (ICD-10 - E53.8) 11/2017 13.9, 91 11/2016 hgb stable at 13.1, 91 03/14/20 391 on 1000 05/2018 419 11/2017 381 07/2017 352 11/2016 B12 307; therefore, 1 mg po QD started 05/2018 761 07/2017 RBC folate 592 Dec, Migraine without aura, not i ntractable, with status migrainosus (ICD-10 - G43.001) Stable on topir 25, Zomig ZMT 5 BID prn 11/2018 topir to 12.5 QD x 2W, then dc per patient request (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/2016 restarted topir 25 qd (off since 07/2012), flared c 04/2016 B SS/C5 flare Contingency: + propranolol Stable on Zomig 5 abortive Contingency: Neurontin LD, Topamax 25 QD/BID -01/2013 migraines had increased qW 04/2011 decreased Topamax 25 BID to QD (Topamax 25 bid causes food aversion, mental fogginess) Dec, Hx of colonic polyps (ICD-10 - Z86.010) repeat colon-04/2021-W Dec, Osteoarthritis of knees, bilateral (ICD-10 - M17 .0) 12/2015 changed Mobic 15 to Celebrex 200 QD Contingency: injection c PT, MRI 12/2014 favor small lateral MMT p work injury 11/2014, Mobic as per MT, RR, c/b if not improved in 4W Contingency: xray, PT Dec, Mixed hyperlipidemia (ICD-10 - E78.2) Continue dietary control 03/14/20 104/59/109 04/2019 109/58/101, 0.3 07/2017 104/53/104, <0.3 11/2016 95/62/55, 110, 0.4 12/2015 lipids 116/62/126 Dec, Metatarsalgia of right foot (ICD-10 - M77.41) Stable on current regimen 12/2014 started MT pad and Mobic 15 QD and improved c orhtotics/steroid injection by Podiatry H. pylori as per cervical Dec, Breast cancer screening (ICD-10 - Z12.39) 11/2020 B C1 mammogram Dec, Cervical cancer screening (ICD-10 - Z12.4) 11/08/19 ASCUS, cannot ro HGSIL/-HPV; colp MARK II sp 12/31/19 LEEP Yordy, [facility] Dec, Colon cancer screening (ICD-10 - Z12.11) colon as per colonic polyp Dec, Other Stable on home UV light rx 05/03/19 increased generalized PP to 10% BSA c viral URI c favor mild PSA sx of PIPJ/DIPJ, ankles; therefore, acvised tc MTX vs biologic rx (discuss c Nahmias at fu) PLAN OF TREATMENT Medication Medication Name Sig Start Date Stop Date Topiramate 25 mg 1 tablet Orally Daily for 90 day(s) Vitamin D (Cholecalciferol) 50 MCG (1999 UT) 1 capsule Orally On ce a day [...] Twice a day prn for 90 day(s) Treatment Notes Assessment Notes Clinical Notes Vitamin B12 deficiency 11/2017 13.9, 919/ 2016 hgb stable at 13.1, 911/10/25 391 on B12 307; therefore, 1 mg po QD started05/2018 RBC folate 592 Preoperative clearance On 12/29/20 the p atient had a stable CBCD, CMP and PT/APTT. On 12/29/20 the patient's EKG revealed normal sinus rhythm at 61 beats per minute, no hypertrophy, normal axis and inferior repolarization abnormality similar to01/14/2009 EKG. On the AM of the surgery, the patient will take NO MEDICATIONS. Last Taltz dose 12/08/20; will hold 11/ dose to 14D postop 01/19/21. The patient will hold aspirin and ANY NSAID for five (5) days prior to surgery. The patient is currently medically optimized for the above surgery. By the modified RCRI, the patient's 30 day MACE risk is 4%. The patient wishes to assume this risk and proceed with the above surgery.Agree with lesly-operative LWMH and aggressive rearly mobilization given previous severe PE with lumbar laminectomy. DJD (degenerative joint disease), cervical Stable on home PT and ibu 600 BID prn/cyclo 10 TID prn c flaresminimal benefit c ibu 600 BID and dyspepsia c naproxen 220 BID07/2017 + celecox 200 BID (but i refused)12/2016 increased Celebrex 200 QD to BID, but i did not cover (minimal benefit c ibu 600 BID and dyspepsia c naproxen 220 BID) and restarted cyclo 10 qhs and referred to [facility] for SERA x 3 s benefit AND again strongly advised to reduce painting work11/2016 established virginie Lujan who offered ACD mild improvement c [facility]05/2013 Celebrex 200 changed to Mobic 15 by insurance but patient never started06/2012 established virginie Delong who offered C5/6 ACDF and started Neurontin 300 BID which patient states she did not [id number] did not like [facility]-continue home PT12/2014 -H pylori RUQ pain mother c ho acalculu s cholecystitis (03/11/20 -H pylori IgG)11/17/20 GB US: favor small stone at gb neck; ergo, defer repeat HIDA given risk of inducing acute cholecystitis and referred for tectomy consideration11/11/20 given concerning for recurrent bilary colic (possibly partially masked by IL-17i); 11/12/20 checked CBCD/CMP/lipase WNL; ergo gb US, then HIDA EF and given persistent NBNB diarrhea since ~10/08/20 checked GI PCR (no precedent abx) (which has improved over ~last 3D).11/03/20 Adebayo for recurrent severe flare again ~4H p dinner (hot dog c mac/cheese!)-CT AP, BW WNL (no episode since)03/19/20 5 epi sodes of epigastric pain/RUQ pain since 11/2019 usually ~6H p dinner (~MN when laying in bed), lasting ~4-6H, often improving c NBNB vomiting (often undigested food)therefore, favor duodenitis +/- borderline GOO; hold 8 oz qAM coffee/chloé 70 qW, + panto 40 BID (but only used x 1M)03/13/19 Adebayo ER-last flare-normal CBCD, CMP, lipase, UA, LA 1 x WBC 12.2; RUQ US minimla gb wall thickening 4 mm, fatty liver, no stones-felt bilary colic and referred to Dr. 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/2016 restarted topir 25 qd (off since 07/2012), flared c 04/2016 B SS/C5 flareContingency: + propranololStable on Zomig 5 abortiveContingency: Neurontin LD, Topamax 25 QD/BID-01/2013 migraines had increased qW04/2011 decreased Topamax 25 BID to QD (Topamax 25 bid causes food aversion, mental fogginess) Borderline osteopenia 03/2023 DXA9//06/25 DXA -1.6/-1.8/0.8 c 0/0/-1 c/w 09/25/18 (had taken 16M chloé); ergo, plan restart chloé at fu given abdominal pain was probably bilary09/2018 -1.9/-1.6/ c -6/-6/-7% change c/w 05/2016; therefore, + 11/2018 chloé 70 q7D given FRAX score and rate of loss; but stopped 03/2020 2 abdominal pain (favor biliary etiology)05/2016 -0.5/-0.2/1.8 c 0.3/-0.8/-0.3% change c/w 03/2013; therefore, - TTG Mixed hyperlipidemia Continue dietary co ntrol03/14/20 104//2020 109/58/101, 0. 104/53/104, <0. 95/62/55, 110, 0.410/2016 lipids 116/62/126 Palpitations Stable on current re gimenContingency: metoprolol tartrate 12.5 qAM/BID-prior on atenolol prior to PE for PAC/PVCs-patient defers rx given mainly asymptomatic03/11/14 EKG NSR 64 bpm, low voltage limb, inferior repolarization abnormalities similar to 01/14/2009 EKG, K 4.7, Mg 2.1 Osteoarthritis of knees, bilateral 12/24 16 changed Mobic 15 to Celebrex 200 QDContingency: injection c PT, MRI12/2014 favor small lateral MMT p work injury 11/2014, Mobic as per MT, RR, c/b if not improved in 4WContingency: xray, PT Psoriatic arthritis as per PPfollows wit h Nahmias09/13/19 CCP 9,CRP/ESR 0.4 Breast cancer screening 11/2020 B C1 mamm ogram Hypothyroidism, unspecified 05/2018 US he tero gland s n/c9/10/25 2, 1.11 0.6, 1.27 0.22, 1.1 on 4.6, 1.1; therefore, 88 to 1.2, 1. 0.5, 1.07/2017 1.5, 1.0 on 1. 2. 2.06/2013 5.5 therefore increased 75 to 888/2012 1. 2.810/2012 4.5 therefore LT4 62.5 increased to 756/2012 2.610/2010 TSH 2.4 on LT4 62. TSH 3.1-increase LT4 from 50 to 62.5 Metatarsalgia of right foot Stable on cu rrent dfqcuic64/2015 started MT pad and Mobic 15 QD and improved c orhtotics/steroid injection by PodiatryH. pylori as per cervical Cervical cancer screening 11/08/19 ASCUS, cannot ro HGSIL/-HPV; colp MARK II sp 12/31/19 LEEP Yordy, [facility] Lumbar spondylosis Stable on home PT an d mariam 200 BID/cyclo 10 TID prn c flares09/15/17 by apt LLE radic pain had improved and Dr. Lujan discussed ACDF C5/6 given cervical flare/migraine HA07/29/17 beginning 07/2017 sudden onset L paralumbar pain c 10/14 radicular pain c overuse (no trauma) to L ankle c overall mild weakness and by PE motor and sensory loss in L5>S1 distribution (obvious concern for nerve compression) therefore, LS xray done revealing ML DSN worst L5/1 s listhesis nor obvious NF narrowing; therefore, MRI LS ordered as per and referred to Dr. Lujan Overweight Encouraged weight lo ss Colon cancer screening colon as per colo ke polyp Plaque psoriasis as per PSA06/19/19 ix ekizumab (IL-17A antag) bolus/maintenance started by Sonya rachel marked improvement of PSA/PP06/20/19 -B/C/TB Gold/HIV Vitamin D deficiency 09/09/19 32, 8.8, 46; therefore, enocuraged compliance04/2019 26, 8.9, 74; therefore, + D3 2K10/2018 31, 9.7, 29 on light rx only; therefore, + D3 1K05/2018 32, 9.5, 47 on light rx only06/2015 23, 8.7, PTH 38; therefore, started D3 2K IFG (impaired fasting glucose) Continue ADA dietno 1DR c DM, s hypo sx1/10/25 5.2 (92, 11)09/09/19 5.6 (94, 21)04/2019 5. A1C 5.5 (99, 9)03/14/20 MAGDALENA/creatinine 9 Next Appt Details , BW NOW Reason: Provider Name:Delfino Aburto, 2021-03-13 0 8:15:00 AM, [address] [facility], , [place], [address], Insurance Providers Payer Name Payer Address Payer Phone Insured Name Patient Relati onship to Insured Coverage Start Date Coverage End Date [facility] [id number] [facility] [id number] [phone] SHARON ROSALES [id number]
--- OUTSIDE RECORDS SUMMARY | 2021-01-05 10:59 | CCD ---
Continuity of Care Document (CCD) Created on: 10/22/2020 Evelina Kelsey Elena External Reference #: [id number] : [id number] Sex: Female Author Author Kelsey MONTOYA MD Organization Unknown Address [address] [place] [address] Phone [phone] Problems Description No Information Available Social History Type Date Description Comments Sex Unknown Allergies, Adverse Reactions, Alerts Description No Information Available Medications Active Medications SIG Qnty Indications Ordering Provide r Date Gabapentin 100mg Capsules 1-2 by mouth three times a day 90caps Adam Montoya MD 10/13/2020 Percocet 5-325mg Tablets 1-2 tabs q 4-6 hours prn/pain 40tabs Adam Montoya MD 03/13/2008 Colace 100mg Capsules 1 po bid, hold for diarrhea 60caps Adam Montoya MD 03/13/2008 Bextra 20MG 1 qd X 7 Day 7units Adam Burrell MD 1 04/27/2003 Anaprox DS 1 bid PO pc 15units Adam Burrell MD Bextra 20MG 1 qd X 7 Day 7units Adam Burrell MD 1 04/08/2003 Immunizations Description No Information Available Vital Signs Date Vital Result Comment 10/13/2020 11:46am Body Temperature 97.1 F Height 64 inches 5'4" Weight 189.50 lb BMI (Body Mass Index) 32.5 kg/m2 Results Description No Information Available Procedures Date Code Description Status 10/13/2020 38354 Office/Outpatient New Moderate M DM 45-59 Minutes Completed 10/13/2020 41228 X-Ray Hip Unilateral With Pelvis 2-3 Views Completed 10/13/2020 62907 X-Ray Spine Lumbosacral Complete Inc Bending Views Min Of 6 Completed Medical Devices Description No Information Available Encounters Type Date Location Provider Dx Diagnosis Office Visit 10/13/2020 10:30a [place] Adam Montoya MD M25.552 Pain in left hip M43.16 Spondylolisthesis, lumbar re gion Assessments Date Code Description Provider 10/13/2020 M25.552 Pain in left hip Adam Montoya MD 10/13/2020 M43.16 Spondylolisthesis, lumbar region Adam Montoya MD Plan of Treatment 10/13/2020 - Adam Montoya MD* M25.552 Pain in left hip * M43.16 Spondylolisthesis, lumbar region* Follow up:* 2 months back/lt hip angeline w/blb * All * New Medication:* Gabapentin 100 mg - 1-2 by mouth three times a day Functional Status Description No Information Available Mental Status Description No Information Available Referrals Description No Information Available
--- OUTSIDE RECORDS SUMMARY | 2021-01-05 10:59 | CCD ---
Author Author [facility] Organization [facility] Address Unknown Phone Unavailable Care Team Providers Care Commissioned Sales Associate Name Role Phone Delfino Aburto Unavailable PROBLEMS Type Condition ICD9-CM Code [id number] Code Onset Dates Condition S tatus W/U Status Risk SNOMED Code Notes Problem Vitamin D deficiency E55.9 Active confirmed 66472567 Problem Colon cancer screening Z12.11 Active confirmed 070219049 Problem Mixed hyperlipidemia E78.2 Active confirmed 340317215 Problem Palpitations R00.2 Active confirmed 1618751 2 Problem Borderline osteopenia M85.80 Active confirmed 003104302 Problem Overweight E66.3 Active confirmed 650595742 Problem Vitamin B12 deficiency E53.8 Active confirmed 734831172 Problem DJD (degenerative joint disease), cervical M50.30 Active confirmed 16958427 Problem Hx of colonic polyps Z86.010 Active confirmed 801348546 Problem Migraine without aura, not intractable, with sta tus migrainosus G43.001 Active confirmed 16213938 Problem Family history of colon cancer Z80.0 Active confir med 739593158 Problem IFG (impaired fasting glucose) R73.01 Active confir med 071570470 Problem High risk medication use Z79.899 Active confirmed 944896230217620 Problem Breast cancer screening Z12.39 Active confirmed 074568926 Problem Family history of breast cancer Z80.3 Active confi rmed 524795695 Problem Metatarsalgia of right foot M77.41 Active conf irmed 677371385017176 Problem Cervical cancer screening Z12.4 Active confirmed 941102964 Problem Lumbar spondylosis M47.816 Active confirmed 939894257 Problem Hypothyroidism, unspecified E03.9 Active confirmed 95799209 Problem Osteoarthritis of knees, bilateral M17.0 Activ e confirmed 292822844 Problem Psoriatic arthritis L40.50 Active confirmed 156531916 Problem Plaque psoriasis L40.0 Active confirmed 200 713170 Problem MARK II (cervical intraepithelial neoplasia II) N87 .1 Active confirmed 159802840 Problem Hx pulmonary embolism Z86.711 Active confirmed 941538001 ALLERGIES Allergen (clinical drug ingredient) Drug/Non Drug Allergy do cumented on EMR Reaction Allergy Type Onset Date Status Estrogens Conjugated Pulmonary embolism Drug Allergy Active ENCOUNTERS from 1965 to 2020-11-21 Encounter Location Date Provider Diagnosis [facility] [address] [facility] [phone] [place] [address] 17 Nov, 2020 Delfino Aburto IMMUNIZATIONS Vaccine Route Administration Date [...] Education Language: Question Answer Notes Languages spoken: Chinese Taoist: Question Answer Notes Taoist 33 None Sexual Hx: Question Answer Notes [...] Notes Start Da te End Date Status Vitamin D (Cholecalciferol) 50 MCG (1999 UT) 1 capsule Orally Once a day Active Cyclobenzaprine HCl 10 MG 1 tablet as needed Orally Three times a day prn Active Zomig ZMT 5 MG 1 tablet on the tongue and a llow to dissolve at onset of headache, may repeat after 2 hours if headache returns Orally Twice a day prn for 90 day(s) Active Levothyroxine Sodium 100 MCG 1 tablet on an empty stom ach in the morning Orally Once a day for 90 day(s) Active Taltz 80 MG/ML Maintenance Dose: Inject 80m g (1 injection) under skin every 4 weeks Subcutaneous Every 4 weeks for 84 days Active Topiramate 25 mg 1 tablet Orally Daily for 90 day(s) Active Cyanocobalamin 1000 MCG 1 tablet Orally Once a day for 30 day(s) Active PROCEDURES No Information RESULTS No Results REASON FOR VISIT Re:RE:Surgeon referral MEDICAL (GENERAL) HISTORY Type Description Date Medical History DJD LS sp 03/2008 L5-S1 disce ctomy with Dr. Delong with post operative massive PE with secondary EMD, status post [place] filter in [address] [...] knee osteoarthriti s-negative right knee x-ray November 2009//06/2015 -[facility], - HLAB27 Medical History cervical DJD with C5-C7 smal l central bulges, most pronounced C5/6 c mild CCS by 08/2016 MRI Medical History PE 2008 post op back surgery , post-op permanent IVC filter placed Medical History 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 normal shou lder xray Medical History lumbar DJD-L HNP c L5 root compression b y 08/2017 MRI Medical History tubular adenoma-04/20167431-cvpnw-K Medical History Tammy Vera breast cancer risk score 10 .42% Medical History Gilbert's disease-01/2007 total bili 1.7 Medical History 11/20/19 colpo MARK II sp 12/31/19 LEEP-St inson Surgical History tonsillectomy 1984 Surgical History diskectomy [...] Medication Name Sig Start Date Stop Date Levothyroxine Sodium 100 MCG 1 tablet on an empty stom ach in the morning Orally Once a day for 90 day(s) Vitamin D (Cholecalciferol) 50 MCG (2000 UT) 1 capsule Orally On ce a day Zomig ZMT 5 MG 1 tablet on the tongue and a llow to dissolve at onset of headache, may repeat after 2 hours if headache returns Orally Twice a day prn for 90 day(s) Topiramate 25 mg 1 tablet Orally Daily for 90 day(s) Cyanocobalamin 1000 MCG 1 tablet Orally Once a day for 30 day(s) Cyclobenzaprine HCl 10 MG 1 tablet as needed Orally Three times a day prn Next Appt Details Provider Name:Delfino Aburto, 2021-03-13 0 8:15:00 AM, [address] [facility], , [place], [address], Insurance Providers Payer Name Payer Address Payer Phone Insured Name Patient Relati onship to Insured Coverage Start Date Coverage End [place] [facility] [address] [place] [place] [phone] [facility] [phone] SHARON ROSALES [id number]
--- OUTSIDE RECORDS SUMMARY | 2021-01-05 10:59 | CCD ---
Author Author [facility] Organization [facility] Address Unknown Phone Unavailable Care Team Providers Care Formwork Carpenter Name Role Phone Delfino Aburto Unavailable PROBLEMS Type Condition ICD9-CM Code [id number] Code Onset Dates Condition S tatus W/U Status Risk SNOMED Code Notes Problem Vitamin D deficiency E55.9 Active confirmed 30117965 Problem Colon cancer screening Z12.11 Active confirmed 130779296 Problem Mixed hyperlipidemia E78.2 Active confirmed 039812158 Problem Palpitations R00.2 Active confirmed 6555679 2 Problem Borderline osteopenia M85.80 Active confirmed 333548818 Problem Overweight E66.3 Active confirmed 515439381 Problem Vitamin B12 deficiency E53.8 Active confirmed 405369852 Problem DJD (degenerative joint disease), cervical M50.30 Active confirmed 04380535 Problem Hx of colonic polyps Z86.010 Active confirmed 930429602 Problem Migraine without aura, not intractable, with sta tus migrainosus G43.001 Active confirmed 60856363 Problem Family history of colon cancer Z80.0 Active confir med 034654158 Problem IFG (impaired fasting glucose) R73.01 Active confir med 108907494 Problem High risk medication use Z79.899 Active confirmed 550400690832390 Problem Breast cancer screening Z12.39 Active confirmed 859791320 Problem Family history of breast cancer Z80.3 Active confi rmed 108029681 Problem Metatarsalgia of right foot M77.41 Active conf irmed 562899941497830 Problem Cervical cancer screening Z12.4 Active confirmed 823277678 Problem Lumbar spondylosis M47.816 Active confirmed 127996189 Problem Hypothyroidism, unspecified E03.9 Active confirmed 74114298 Problem Osteoarthritis of knees, bilateral M17.0 Activ e confirmed 760721498 Problem Psoriatic arthritis L40.50 Active confirmed 781957615 Problem Plaque psoriasis L40.0 Active confirmed 200 993238 Problem MARK II (cervical intraepithelial neoplasia II) N87 .1 Active confirmed 765130445 Problem Hx pulmonary embolism Z86.711 Active confirmed 657093036 ALLERGIES Allergen (clinical drug ingredient) Drug/Non Drug Allergy do cumented on EMR Reaction Allergy Type Onset Date Status Estrogens Conjugated Pulmonary embolism Drug Allergy Active ENCOUNTERS from 1965 to 2020-11-27 Encounter Location Date Provider Diagnosis [facility] [address] [facility] [phone] [place] [address] Nov, 2020 Delfino Aburto IMMUNIZATIONS Vaccine Route [...] Education Language: Question Answer Notes Languages spoken: Macedonian Confucianism: Question Answer Notes Confucianism 33 None Sexual Hx: Question Answer Notes [...] massive PE with secondary EMD, status post [place] filter in [address] [...] knee osteoarthriti s-negative right knee x-ray November 2009/ -[facility], - HLAB27 Medical History cervical DJD with C5-C7 smal l central bulges, most pronounced C5/6 c mild CCS by 08/2016 MRI Medical History PE 2008 post op back surgery , post-op permanent IVC filter placed Medical History 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 normal shou lder xray Medical History lumbar DJD-L HNP c L5 root compression b y 08/2017 MRI Medical History tubular adenoma-04/20167623-owkck-F Medical History Tammy Vera breast cancer risk score 10 .42% Medical History Gilbert's disease-01/2007 total bili 1.7 Medical History 11/20/19 colpo MARK II sp 12/31/19 LEE-St ins Surgical History tonsillectomy 1984 Surgical History diskectomy [...] Provider Name:Delfino Aburto, 2020-12-29 0 9:45:00 AM, [address] [place] [address], [place], [address], Provider Name:Delfino Aburto, 2021-03-13 0 8:15:00 AM, [address] [place] [address], [address], Insurance Providers Payer Name Payer Address Payer Phone Insured Name Patient Relati onship to Insured Coverage Start Date Coverage End Date [facility] [id number] [facility] [phone] [phone] SHARON ROSALES [id number]
--- OUTSIDE RECORDS SUMMARY | 2021-01-05 10:59 | CCD ---
Author Author [facility] Organization [facility] Address Unknown Phone Unavailable Care Team Providers Care Trimmer Machine Name Role Phone Delfino Aburto Unavailable PROBLEMS Type Condition ICD9-CM Code [id number] Code Onset Dates Condition S tatus W/U Status Risk SNOMED Code Notes Problem Vitamin D deficiency E55.9 Active confirmed 35119442 Problem Colon cancer screening Z12.11 Active confirmed 857959058 Problem Mixed hyperlipidemia E78.2 Active confirmed 678242065 Problem Palpitations R00.2 Active confirmed 6080978 2 Problem Borderline osteopenia M85.80 Active confirmed 922789483 Problem Overweight E66.3 Active confirmed 952321412 Problem Vitamin B12 deficiency E53.8 Active confirmed 031560890 Problem DJD (degenerative joint disease), cervical M50.30 Active confirmed 15523579 Problem Hx of colonic polyps Z86.010 Active confirmed 602505643 Problem Migraine without aura, not intractable, with sta tus migrainosus G43.001 Active confirmed 42952408 Problem Family history of colon cancer Z80.0 Active confir med 549373142 Problem IFG (impaired fasting glucose) R73.01 Active confir med 340898389 Problem High risk medication use Z79.899 Active confirmed 133746435340878 Problem Breast cancer screening Z12.39 Active confirmed 333787975 Problem Family history of breast cancer Z80.3 Active confi rmed 838123827 Problem Metatarsalgia of right foot M77.41 Active conf irmed 167762325778872 Problem Cervical cancer screening Z12.4 Active confirmed 858990871 Problem Lumbar spondylosis M47.816 Active confirmed 257046587 Problem Hypothyroidism, unspecified E03.9 Active confirmed 58235222 Problem Osteoarthritis of knees, bilateral M17.0 Activ e confirmed 020840949 Problem Psoriatic arthritis L40.50 Active confirmed 554220897 Problem Plaque psoriasis L40.0 Active confirmed 200 646988 Problem MARK II (cervical intraepithelial neoplasia II) N87 .1 Active confirmed 734775666 Problem Hx pulmonary embolism Z86.711 Active confirmed 589307863 ALLERGIES Allergen (clinical drug ingredient) Drug/Non Drug Allergy do cumented on EMR Reaction Allergy Type Onset Date Status Estrogens Conjugated Pulmonary embolism Drug Allergy Active ENCOUNTERS from 1965 to 2020-11-21 Encounter Location Date Provider Diagnosis [facility] [address] [facility] [phone] [place] [address] 17 Nov, 2020 Delfino Aburto IMMUNIZATIONS Vaccine [...] Education Language: Question Answer Notes Languages spoken: Faroese Catholic: Question Answer Notes Catholic 33 None Sexual Hx: Question Answer Notes [...] Information RESULTS No Results REASON FOR VISIT Surgeon referral MEDICAL (GENERAL) HISTORY Type Description Date Medical History DJD LS sp 03/2008 L5-S1 disce ctomy with Dr. Delong with post operative massive PE with secondary EMD, status post [place] filter in [address] [...] b y 08/2017 MRI Medical History tubular adenoma-04/20160850-bomol-S Medical History Tammy Vera breast cancer risk [...] AM, [address] [facility], , [place], [address], Insurance Providers Payer Name Payer Address Payer Phone Insured Name Patient Relati onship to Insured Coverage Start Date Coverage End Date [facility] [address] [facility] [phone] [phone] SHARON ROSALES [id number]
--- OUTSIDE RECORDS SUMMARY | 2021-01-05 10:59 | CCD | Continuity of Care Document ---
Author Author Kelsey MONTOYA MD Organization Unknown Address [address] [place] [address] Phone [phone] Problems Description No Information Available Social History [...] Available Procedures Date Code Description Status 10/13/2020 34809 X-Ray Hip Unilateral With Pelvis 2-3 Views Completed 10/13/2020 79028 X-Ray Spine Lumbosacral Complete Inc Bending Views Min Of 6 Completed Medical Devices Description No Information Available Encounters Description No Information Available Assessments Date Code Description Provider 10/13/2020 M51.36 Other intervertebral disc degene ration, lumbar region Adam Montoya MD 10/13/2020 M25.552 Pain in left hip Adam Montoya MD Plan of Treatment 10/13/2020 - Adam Montoya MD* M51.36 Other intervertebral disc degeneration, lumbar region* Follow up:* 2 months back/lt hip angeline w/blb * M25.552 Pain in left hip * All * New Medication:* Gabapentin 100 mg - 1-2 by mouth three times a day Functional Status Description No Information Available Mental Status Description No Information Available Referrals Description No Information Available
--- OUTSIDE RECORDS SUMMARY | 2021-01-05 10:59 | CCD ---
Author Author [facility] Organization [facility] Address Unknown Phone Unavailable Care Team Providers Care Professor Of Religious Studies Name Role Phone Delfino Aburto Unavailable PROBLEMS Type Condition ICD9-CM Code [id number] Code Onset Dates Condition S tatus W/U Status Risk SNOMED Code Notes Problem Vitamin D deficiency E55.9 Active confirmed 66895964 Problem Colon cancer screening Z12.11 Active confirmed 979222577 Problem Mixed hyperlipidemia E78.2 Active confirmed 774266692 Problem Palpitations R00.2 Active confirmed 2664424 2 Problem Borderline osteopenia M85.80 Active confirmed 209169865 Problem Overweight E66.3 Active confirmed 787296762 Problem Vitamin B12 deficiency E53.8 Active confirmed 364713271 Problem DJD (degenerative joint disease), cervical M50.30 Active confirmed 50038851 Problem Hx of colonic polyps Z86.010 Active confirmed 592914909 Problem Migraine without aura, not intractable, with sta tus migrainosus G43.001 Active confirmed 93920713 Problem Family history of colon cancer Z80.0 Active confir med 411343236 Problem IFG (impaired fasting glucose) R73.01 Active confir med 824133310 Problem High risk medication use Z79.899 Active confirmed 726403605355538 Problem Breast cancer screening Z12.39 Active confirmed 299481969 Problem Family history of breast cancer Z80.3 Active confi rmed 496821126 Problem Metatarsalgia of right foot M77.41 Active conf irmed 588817723184529 Problem Cervical cancer screening Z12.4 Active confirmed 213214898 Problem Lumbar spondylosis M47.816 Active confirmed 801049362 Problem Hypothyroidism, unspecified E03.9 Active confirmed 42936181 Problem Osteoarthritis of knees, bilateral M17.0 Activ e confirmed 643455392 Problem Psoriatic arthritis L40.50 Active confirmed 102971631 Problem Plaque psoriasis L40.0 Active confirmed 200 497788 Problem MARK II (cervical intraepithelial neoplasia II) N87 .1 Active confirmed 314906204 Problem Hx pulmonary embolism Z86.711 Active confirmed 371874638 ALLERGIES Allergen (clinical drug ingredient) Drug/Non Drug Allergy do cumented on EMR Reaction Allergy Type Onset Date Status Estrogens Conjugated Pulmonary embolism Drug Allergy Active ENCOUNTERS from 1965 to 2020-11-17 Encounter Location Date Provider Diagnosis [facility] [address] [facility] [phone] [place] [address] Nov, 2020 Delfino Lamonte Dyspepsia R10.13 ; RUQ pain R10.11 ; Borderline osteopenia M85.80 ; Psoriatic arthritis L40.50 ; Hypothyroidism, unspecified [...] Osteoarthritis of knees, bilateral M17.0 ; Mixed hyperlipidemia E78.2 ; Palpitations R00.2 ; Metatarsalgia of right foot M77.41 ; [...] Language: Question Answer Notes Languages spoken: Faroese Rastafarian: Question Answer Notes Rastafarian 33 None Sexual Hx: Question Answer Notes [...] Giving encouragement to exercise REASON FOR REFERRAL from 1965 to 2020-11-17 Reason cholecystectomy consideratio n Diagnosis 1 RUQ pain (R10.11) Referral Organization [facility] [place] Referring Provider First Name Delfino Referring Provider Last Name Lamonte Referring Provider Specialty Family Medicine Referred Provider Zoltan Anglin Referred Provider Specialty General Surgery Referral Priority Routine VITAL SIGNS Weight 189.4 lbs Nov, Weight-kg 85.91 kg Nov, Height 64 in Nov, BMI 32.51 kg/m2 Nov, Heart Rate 83 /min Nov, Respiratory Rate 20 /min Nov, Temperature 98.5 degrees Fahrenheit Nov, Oximetry 98% Nov, Blood pressure systolic 124 mm Hg Nov, Blood pressure diastolic 82 mm Hg Nov, MEDICATIONS Medication SIG (Take, Route, Frequency, Duration) Notes Start Da te End Date Status Vitamin D (Cholecalciferol) 50 MCG (1999) 1 [...] 30 day(s) Active PROCEDURES No Information RESULTS Component Value Reference Range CBC with Differential Reviewed date:11/12/2020 13:00:25 Interpretation: Performing Lab:[facility], [facility] [address] [facility] [id number] , ,[place] [address] WHITE BLOOD COUNT 7.5 4.0-10.0 RED BLOOD COUNT 4.27 4.00-5.40 HEMOGLOBIN 12.9 12.0-15.5 HEMATOCRIT 39.7 36.0-47.0 MEAN CORPUSCULAR VOLUME 93.0 80.0-96.0 MEAN CORPUSCULAR HEMOGLOBIN 30.2 27.0-33.0 MEAN CORPUSCULAR HGB CONC 32.5 32.0-36.5 RED CELL DISTRIBUTION WIDTH 12.6 11.5-14.5 PLATELET COUNT, AUTOMATED 242 150-450 NEUTROPHILS % 59.5 36.0-66.0 LYMPH % 30.8 24.0-44.0 MONO % 7.5 2.0-8.0 EOS % 1.6 0.0-3.0 BASO % 0.5 0.0-1.0 NEUTROPHILS # 4.4 1.5-8.5 LYMPH # 2.3 1.5-5.0 MONO # 0.6 0.0-0.8 EOS # 0.1 0.0-0.5 BASO # 0.0 0.0-0.2 Comprehensive Metabolic Profile (CMP) Reviewed date:11/12/2020 13:00:19 Interpretation: Performing Lab:[facility] [address] [facility] [address] , ,[place] [address] GLUCOSE, FASTING 90 70-100 BLOOD UREA NITROGEN 12 7-18 CREATININE FOR GFR 0.72 0.55-1.30 GLOMERULAR FILTRATION RATE > 60.0 >51 SODIUM LEVEL 141 136-145 POTASSIUM SERUM 4.4 3.5-5.1 CHLORIDE LEVEL 109 98-107 CARBON DIOXIDE LEVEL 27 21-32 CALCIUM LEVEL 8.9 8.5-10.1 AST/SGOT 17 7-37 ALT/SGPT 30 12-78 ALKALINE PHOSPHATASE 68 45-117 BILIRUBIN,TOTAL 0.6 0.2-1.0 TOTAL PROTEIN 7.2 6.4-8.2 ALBUMIN 3.4 3.2-5.2 ALBUMIN/GLOBULIN RATIO 0.9 1.2-2.2 C REACTIVE PROTEIN QUANTITATIV (At [facility] L ab) Reviewed date:11/12/2020 13:00:39 Interpretation: Performing Lab:[facility] [address] [place] [address] , ,[place] [address] C REACTIVE PROTEIN QUANTITATIV 0.33 0.00-0.30 ERYTHROCYTE SEDIMENTATION RATE Reviewed date:11/12/2020 13:00:12 Interpretation: Performing Lab:[facility] [address] [place] [address] , ,[place] [address] ERYTHROCYTE SEDIMENTATION RATE 25 0-30 FREE T4 & TSH PANEL Reviewed date:11/12/2020 13:00:28 Interpretation: Performing Lab:[facility] [address] [place] [address] , ,[place] [address] THYROID STIMULATING HORMONE 2.040 0.358-3.740 FREE T4 1.09 0.76-1.46 HEMOGLOBIN A1c Reviewed date:11/12/2020 13:00:09 Interpretation: Performing Lab:[facility] [address] [place] [address] , ,[place] [address] HEMOGLOBIN A1c 5.5 ESTIMATED AVERAGE GLUCOSE 111 60-110 LIPASE Reviewed date:11/12/2020 13:00:21 Interpretation: Performing Lab:[facility] [address] [place] [address] , ,[place] [address] LIPASE 138 73-393 SMC GALLBLADDER U/S Reviewed date:11/17/2020 08:33:49 Interpretation: Performing Lab:[facility],[address] [place]], ,[place] [address] REASON FOR VISIT ER F/U ? gallbladder attack MEDICAL (GENERAL) HISTORY Type Description Date Medical [...] b y 08/2017 MRI Medical History tubular adenoma-04/[id number]-K Medical History Tammy [facility] breast cancer risk score 10 .42% Medical History Gilbert's disease-01/2007 total bili 1.7 Medical History 11/20/19 colpo MARK II sp 12/31/19 [facility] Surgical History tonsillectomy 1983 Surgical History diskectomy [...] Treatment Notes Treatm ent Clinical Notes Nov, Dyspepsia (ICD-10 - R10.13) Nov, RUQ pain (ICD-10 - R10.11) mother c ho acalculus cholecystitis (03/11/20 -H pylori IgG) 11/17/20 GB us: favor small stone at gb neck; ergo, defer repeat HIDA given risk of inducing acute cholecystitis and referred for tectomy consideration 11/11/20 given concerning for recurrent bilary colic (possibly partially masked by IL-17i); check STAT BW, if WNL, gb US, then HIDA EF and given [...] 48) 03/14/07 GES WNL T1/2 83 min Nov, Borderline osteopenia (ICD-10 - M85.80) recheck BMD 11/2020 -1.9/-1.6/ c -6/-6/-7% change c/w 05/2016; therefore, + 11/2018 chloé 70 q7D given FRAX score and rate of loss 05/2016 -0.5/-0.2/1.8 c 0.3/-0.8/-0.3% change c/w 03/2013; therefore, CCR 04/2019 - TTG Nov, Psoriatic arthritis (ICD-10 - L40.50) as per PP follows with Sonya 09/13/19 CCP 9,CRP/ESR 0.4/27 Nov, Hypothyroidism, unspecified (ICD-10 - E03.9) 05/2018 US hetero gland s n/c 03/14/20 0.6, 1.2 09/09/19 0.22, 1.1 on [...] TSH 3.1-increase LT4 from 50 to 62.5 Nov, Plaque psoriasis (ICD-10 - L40.0) as per PSA 06/19/19 ixekizumab (IL-17A antag) bolus/maintenance started by Sonya rachel marked improvement of PSA/PP 06/20/19 -B/C/TB Gold/HIV Nov, Vitamin D deficiency (ICD-10 - E55.9) 09/09/19 32, 8.8, 46; therefore, enocuraged compliance 04/2019 26, 8.9, 74; therefore, + D3 2K 10/2018 31, 9.7, 29 on light rx only; therefore, + D3 1K 05/2018 32, 9.5, 47 on light rx only 06/2015 23, 8.7, PTH 38; therefore, started D3 2K Nov, IFG (impaired fasting glucose) (ICD-10 - R73.01) Continue ADA diet no 1DR c DM, s hypo sx 03/14/20 5.2 (92, 11) 09/09/19 5.6 (94, 21) 04/2019 5.4 10/2018 A1C 5.5 (99, 9) 03/14/20 MAGDALENA/creatinine 9 07 Sep, 2021 Overweight (ICD-10 - E66.3) Encouraged weight loss Nov, Lumbar spondylosis (ICD-10 - M47.816) Stable on home PT and mariam 200 BID/cyclo 10 TID prn c flares 09/15/17 by apt LLE radic pain had improved and Dr. Lujan discussed ACDF C5/6 given cervical flare/migraine CARMEN 07/29/17 beginning 07/2017 sudden onset L paralumbar pain c 8/10 radicular pain c overuse (no trauma) to L ankle c overall mild weakness and by PE motor and sensory loss in L5>S1 distribution (obvious concern for nerve compression) therefore, LS xray done revealing ML DSN worst L5/1 s listhesis nor obvious NF narrowing; therefore, MRI LS ordered as per and referred to Dr. 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 established virginie Lujan who offered ACDF 07/2016 mild improvement c [facility] 05/2013 Celebrex 200 changed to Mobic 15 by insurance but patient never started 06/2012 lae Delong who offered C5/6 ACDF and started Neurontin 300 BID which patient states she did not start 2010-patient did not like [facility]-continue home PT 12/2014 -H pylori Nov, Vitamin B12 deficiency (ICD-10 - E53.8) 11/2017 13.9, 91 11/2016 hgb stable at 13.1, 91 03/14/20 391 on 1000 05/2018 419 11/2017 381 07/2017 352 11/2016 B12 307; therefore, 1 mg po QD started 05/2018 761 07/2017 RBC folate 592 Nov, Migraine without aura, not i ntractable, [...] 25 bid causes food aversion, mental fogginess) Nov, Hx of colonic polyps (ICD-10 - Z86.010) repeat colon-04/2021-W Nov, Osteoarthritis of knees, bilateral (ICD-10 - M17 .0) 12/2015 changed Mobic 15 to Celebrex 200 QD Contingency: injection c PT, MRI 12/2014 favor small lateral MMT p work injury 11/2014, Mobic as per MT, RR, c/b if not improved in 4W Contingency: xray, PT Nov, Mixed hyperlipidemia (ICD-10 - E78.2) Continue dietary control 03/14/20 104/59/109 04/2019 109/58/101, 0.3 07/2017 104/53/104, <0.3 11/2016 95/62/55, 110, 0.4 12/2015 lipids 116/62/126 Nov, Palpitations (ICD-10 - R00.2) Stable on current regimen Contingency: metoprolol tartrate 12.5 qAM/BID-prior on atenolol prior to PE for PAC/PVCs-patient defers rx given mainly asymptomatic 03/11/14 EKG NSR 64 bpm, low voltage limb, inferior repolarization abnormalities similar to 01/14/2009 EKG, K 4.7, Mg 2.1 Nov, Metatarsalgia of right foot (ICD-10 - M77.41) Stable on current regimen 12/2014 started MT pad and Mobic 15 QD and improved c orhtotics/steroid injection by Podiatry H. pylori as per cervical Nov, Breast cancer screening (ICD-10 - Z12.39) 12/2019 B C1 mammogram Nov, Cervical cancer screening (ICD-10 - Z12.4) 11/08/19 ASCUS, cannot ro HGSIL/-HPV; colp MARK II sp 12/31/19 MARIANO Scales, [facility] [employer] Nov, Colon cancer screening (ICD-10 - Z12.11) colon as per colonic polyp Nov, Other Stable on home UV light rx 05/03/19 increased generalized PP to 10% BSA c viral URI c favor mild PSA sx of PIPJ/DIPJ, ankles; therefore, acvised tc MTX vs biologic rx (discuss c Sonya at fu) PLAN OF TREATMENT Medication Medication [...] needed Orally Three times a day prn Treatment Notes Assessment Notes Clinical Notes Osteoarthritis of knees, bilateral 12/24 16 changed Mobic 15 to Celebrex 200 QDContingency: injection c PT, MRI12/2014 favor small lateral MMT p work injury 11/2014, Mobic as per MT, RR, c/b if not improved in 4WContingency: xray, PT RUQ pain mother c ho acalculu s cholecystitis (03/11/20 -H pylori IgG)11/17/20 GB us: favor small stone at gb neck; ergo, defer repeat HIDA given risk of inducing acute cholecystitis and referred for tectomy consideration11/11/20 given concerning for recurrent bilary colic (possibly partially masked by IL-17i); check STAT BW, if WNL, gb US, then HIDA EF and given persistent NBNB diarrhea since ~10/08/20 checked GI PCR (no precedent abx) (which has improved over ~last 3D).11/03/20 Adebayo for recurrent severe flare again ~4H p dinner (hot dog c mac/cheese!)-CT AP, BW WNL (no episode since)03/19/20 5 episodes of epigastric pain/RUQ pain since [...] Hx of colonic polyps repeat colon-04/2021 -W Borderline osteopenia recheck BMD 11/2020 -1.9/-1.6/1 c -6/-6/-7% change c/w 05/2016; therefore, + 11/2018 chloé 70 q7D given FRAX score and rate of loss05/2016 -0.5/-0.2/1.8 c 0.3/-0.8/-0.3% change c/w 03/2013; therefore, - TTG Palpitations Stable on current re gimenContingency: metoprolol tartrate 12.5 qAM/BID-prior on atenolol prior to PE for PAC/PVCs-patient defers rx given mainly asymptomatic03/11/14 EKG NSR 64 bpm, low voltage limb, inferior repolarization abnormalities similar to 01/14/2009 EKG, K 4.7, Mg 2.1 Psoriatic arthritis as per PPfollows wit h Nahmias09/13/19 CCP 9,CRP/ESR 0.4/27 Mixed hyperlipidemia Continue dietary co ntrol03/14/20 104//2020 109/58/101, 0. 104/53/104, <0. 95/62/55, 110, 0.410/2016 lipids 116/62/126 Hypothyroidism, unspecified 05/2018 US he tero gland s n/c1/10/25 0.6, 1.27 0.22, 1.1 on 4.6, 1.1; therefore, 88 to 10005/2018 1.2, 1. 0.5, 1.07/2017 1.5, 1.0 on 1. 2. 2.06/2013 5.5 therefore increased 75 to 888/2012 1. 2.810/2011 4.5 therefore LT4 62.5 increased to 756/2011 2.610/2010 TSH 2.4 on LT4 62. TSH 3.1-increase LT4 from 50 to 62.5 Breast cancer screening 12/2019 B C1 michelle mogram Plaque psoriasis as per PSA06/19/19 ix ekizumab (IL-17A antag) bolus/maintenance started by Sonya rachel marked improvement of PSA/PP06/20/19 -B/C/TB Gold/HIV Metatarsalgia of right foot Stable on cu rrent ltverrf64/2015 started MT pad and Mobic 15 QD and improved c orhtotics/steroid injection by PodiatryH. pylori as per cervical Vitamin D deficiency 09/09/19 32, 8.8, 46; therefore, enocuraged compliance04/2019 26, 8.9, 74; therefore, + D3 2K10/2018 31, 9.7, 29 on light rx only; therefore, + D3 1K05/2018 32, 9.5, 47 on light rx only06/2015 23, 8.7, PTH 38; therefore, started D3 2K Colon cancer screening colon as per colo ke polyp IFG (impaired fasting glucose) Continue ADA dietno 1DR c DM, s hypo sx1 5.2 (92, 11)09/09/19 5.6 (94, 21)04/2019 5. A1C 5.5 (99, 9)03/14/20 MAGDALENA/creatinine 9 Cervical cancer screening 11/08/19 ASCUS, cannot ro HGSIL/-HPV; colp MARK II sp 12/31/19 MARIANO Scales, [facility] [employer] Migraine without aura, not intractable, with status [...] 25 bid causes food aversion, mental fogginess) Vitamin B12 deficiency 11/2017 13.9, 912016 hgb stable at 13.1, 911/10/25 [place] [address]/2017 38107/2017 35211/2016 B12 307; therefore, 1 mg po QD started05/201815 RBC folate 592 Overweight Encouraged weight lo ss Lumbar spondylosis Stable on home PT an d mariam 200 BID/cyclo 10 TID prn c flares09/15/17 by apt LLE radic pain had improved and Dr. Lujan discussed ACDF C5/6 given cervical flare/migraine HA07/29/17 beginning 07/2017 sudden onset L paralumbar pain c 8/10 radicular pain c overuse (no trauma) to L ankle c overall mild weakness and by PE motor and sensory loss in L5>S1 distribution (obvious concern for nerve compression) therefore, LS xray done revealing ML DSN worst L5/1 s listhesis nor obvious NF narrowing; therefore, MRI LS ordered as per and referred to Dr. Tai CHAMBERS (degenerative joint disease), cervical Stable on home [...] BID which patient states she did not [id number] did not like [facility]-continue home PT12/2014 -H pylori Treatment Notes Test Name Order Date GASTROINTESTINAL GI PANEL (GIPANEL) 2020-11-11 Referrals Referral Date Details cholecystectomy Zoltan holman Next Appt Details 5M, BW NOW Reason: Provider Name:Jyoti Mcdermott, 2020-11-24 09:15:00 AM, [address] [place] [address], , [place], [place], [facility] [phone] Provider Name:Delfino Aburto, 2021-03-13 0 8:15:00 AM, [address] [place] [address] , [place], [place], [address] [place] [address] Insurance Providers Payer Name Payer Address Payer Phone Insured Name Patient Relati onship to Insured Coverage Start Date Coverage End Date [facility] [address] [facility] [id number] SHARON ROSALES [id number]
--- OUTSIDE RECORDS SUMMARY | 2021-01-05 10:59 | CCD ---
Author Author [facility] Organization [facility] Address Unknown Phone Unavailable Care Team Providers Care Corporate Services Manager Name Role Phone Jyoti Mcdermott Unavailable PROBLEMS Type Condition ICD9-CM Code ISN88-HE Code Onset Dates Condition S tatus W/U Status Risk SNOMED Code Notes Problem Colon cancer screening Z12.11 Active confirmed 996835264 Problem Metatarsalgia of right foot M77.41 Active conf irmed [id number] Problem Palpitations R00.2 Active confirmed 8357214 2 Problem Vitamin D deficiency E55.9 Active confirmed 45054503 Problem Mixed hyperlipidemia E78.2 Active confirmed 910839345 Problem Osteoarthritis of knees, bilateral M17.0 Activ e confirmed 799039792 Problem Borderline osteopenia M85.80 Active confirmed 184061467 Problem Overweight E66.3 Active confirmed 023746027 Problem Lumbar spondylosis M47.816 Active confirmed 323126840 Problem Family history of colon cancer Z80.0 Active confir med 234534654 Problem Family history of breast cancer Z80.3 Active confi rmed 438384765 Problem MARK II (cervical intraepithelial neoplasia II) N87 .1 Active confirmed 313224049 Problem Vitamin B12 deficiency E53.8 Active confirmed 680619972 Problem DJD (degenerative joint disease), cervical M50.30 Active confirmed 60722224 Problem Hx pulmonary embolism Z86.711 Active confirmed 517181466 Problem Hx of colonic polyps Z86.010 Active confirmed 008141530 Problem Migraine without aura, not intractable, with sta tus migrainosus G43.001 Active confirmed 33458986 Problem Hypothyroidism, unspecified E03.9 Active confirmed 78720491 Problem IFG (impaired fasting glucose) R73.01 Active confir med 385433747 Problem High risk medication use Z79.899 Active confirmed 856008395826378 Problem Plaque psoriasis L40.0 Active confirmed 200 400651 Problem Psoriatic arthritis L40.50 Active confirmed 947229272 ALLERGIES Allergen (clinical drug ingredient) Drug/Non Drug Allergy do cumented on EMR Reaction Allergy Type Onset Date Status Estrogens Conjugated Pulmonary embolism Drug Allergy Active ENCOUNTERS from 1965 to 2020-10-29 Encounter Location Date Provider Diagnosis [facility] D[facility] [address] [place] [address] [place] [address] Oct, Jyoti Mcdermott IMMUNIZATIONS Vaccine Route Administration Date Status COVID-19 [...] Education Language: Question Answer Notes Languages spoken: Polish Congregational: Question Answer Notes Congregational 33 None [...] Notes Start Da te End Date Status Levothyroxine Sodium 100 MCG 1 tablet on an empty stom ach in the morning Orally Once a day for 90 day(s) Active Cyclobenzaprine HCl 10 MG 1 tablet as needed Orally Three times a day prn Active Vitamin D (Cholecalciferol) 50 MCG (2000 UT) 1 capsule Orally Once a day Active Topiramate 25 mg 1 tablet Orally Daily for 90 day(s) Not-Taking Cyanocobalamin 1000 MCG 1 tablet Orally Once a day for 30 day(s) Active Zomig ZMT 5 MG 1 tablet on the tongue and a llow to dissolve at onset of headache, may repeat after 2 hours if headache returns Orally Twice a day prn for 90 day(s) Active Pantoprazole Sodium 40 MG 1 tablet Orally Once a day for 30 day( s) Mar, Not-Taking Taltz 80 MG/ML Maintenance Dose: Inject 80m g (1 injection) under skin every 4 weeks Subcutaneous Every 4 weeks for 84 days Active ZOLMitriptan 5 MG 1 tab on the tongue and allo w to dissolve at onset of headache, may repeat after 2 hrs if headache returns Orally once daily as needed for 30 Days Active PROCEDURES No Information RESULTS No Results REASON FOR VISIT Randy MEDICAL (GENERAL) HISTORY Type Description Date Medical History DJD LS sp 03/2008 L5-S1 disce ctomy with Dr. Delong with post operative massive PE with secondary EMD, status post [place] filter in [address] [...] b y 08/2017 MRI Medical History tubular adenoma-04/[id number]-M Medical History Tammy Vera breast cancer risk [...] Medication Name Sig Start Date Stop Date Taltz 80 MG/ML Maintenance Dose: Inject 80m g (1 injection) under skin every 4 weeks Subcutaneous Every 4 weeks for 84 days Next Appt Details Provider Name:Jyoti Mcdermott, 2020-11-24 09:15:00 AM, [address] [facility] [phone], [place], [place], [facility] Provider Name:Delifno Aburto, 2021-03-13 0 8:15:00 AM, [address] [place] [address] , [place], [address] Insurance Providers Payer Name Payer Address Payer Phone Insured Name Patient Relati onship to Insured Coverage Start Date Coverage End Date [facility] [id number] [facility] [phone] [id number] SHARON ROSALES [id number]
--- OUTSIDE RECORDS SUMMARY | 2021-01-05 10:59 | CCD ---
Author Author [facility] Organization [facility] Address Unknown Phone Unavailable Care Team Providers Care Bread Stacker Name Role Phone Delfino Aburto Unavailable PROBLEMS Type Condition ICD9-CM Code AVD28-MM Code Onset Dates Condition S tatus W/U Status Risk SNOMED Code Notes Problem Colon cancer screening Z12.11 Active confirmed 652093143 Problem Metatarsalgia of right foot M77.41 Active conf irmed 050779566730658 Problem Palpitations R00.2 Active confirmed 8649746 2 Problem Vitamin D deficiency E55.9 Active confirmed 81888167 Problem Mixed hyperlipidemia E78.2 Active confirmed 561134097 Problem Osteoarthritis of knees, bilateral M17.0 Activ e confirmed 456191562 Problem Borderline osteopenia M85.80 Active confirmed 557686769 Problem Overweight E66.3 Active confirmed 765879317 Problem Lumbar spondylosis M47.816 Active confirmed 303641166 Problem Family history of colon cancer Z80.0 Active confir med 249069355 Problem Family history of breast cancer Z80.3 Active confi rmed 281227718 Problem MARK II (cervical intraepithelial neoplasia II) N87 .1 Active confirmed 948450461 Problem Vitamin B12 deficiency E53.8 Active confirmed 182805321 Problem DJD (degenerative joint disease), cervical M50.30 Active confirmed 82375924 Problem Hx pulmonary embolism Z86.711 Active confirmed 302826926 Problem Hx of colonic polyps Z86.010 Active confirmed 965388406 Problem Migraine without aura, not intractable, with sta tus migrainosus G43.001 Active confirmed 70309046 Problem Hypothyroidism, unspecified E03.9 Active confirmed 76362759 Problem IFG (impaired fasting glucose) R73.01 Active confir med 523804071 Problem High risk medication use Z79.899 Active confirmed 577837717233305 Problem Plaque psoriasis L40.0 Active confirmed 200 121659 Problem Psoriatic arthritis L40.50 Active confirmed 883112383 ALLERGIES Allergen (clinical drug ingredient) Drug/Non Drug Allergy do cumented on EMR Reaction Allergy Type Onset Date Status Estrogens Conjugated Pulmonary embolism Drug Allergy Active ENCOUNTERS from 1965 to 2020-11-05 Encounter Location Date Provider Diagnosis [place] [address] [facility] [phone] [place] [address] Nov, Delfino Aburto Hypothyroidism, unspecified E03.9 IMMUNIZATIONS Vaccine Route Administration Date Status COVID-19 [...] Education Language: Question Answer Notes Languages spoken: Ukrainian Zoroastrianism: Question Answer Notes Zoroastrianism 33 None Sexual Hx: Question Answer Notes [...] b y 08/2017 MRI Medical History tubular adenoma-04/[id number]-dedpe-K Medical History Tammy Vera breast cancer risk [...] Treatment Notes Treatm ent Clinical Notes Nov, Hypothyroidism, unspecified (ICD-10 - E03.9) PLAN OF TREATMENT Medication Medication Name Sig Start Date Stop Date Taltz 80 MG/ML Maintenance Dose: Inject 80m g (1 injection) under skin every 4 weeks Subcutaneous Every 4 weeks for 84 days Levothyroxine Sodium 100 MCG 1 tablet on an empty stom ach in the morning Orally Once a day for 90 day(s) Next Appt Details Provider Name:Delfino Aburto, 2020-11-11 1 0:15:00 AM, [address] [place] [address] , [place], [address] Provider Name:Jyoti Mcdermott, 2020-11-24 09:15:00 AM, [address] [place] [address] , [place], [place], [facility] [phone] Provider Name:Delfino Aburto, 2021-03-13 0 8:15:00 AM, [address] [place] [address] , [place], [address] Insurance Providers Payer Name Payer Address Payer Phone Insured Name Patient Relati onship to Insured Coverage Start Date Coverage End Date [facility] [address] [facility] [phone] SHARON ROSALES [id number]
--- OUTSIDE RECORDS SUMMARY | 2021-01-05 10:59 | CCD | Continuity of Care Document ---
Author Author Kelsey PINO MD Organization Unknown Address [address] [place] [address] Phone [phone] Care Team Providers Care Casing Tier Name Role Phone Delfino Aburto M.D. AUTM [phone] Problems Description No Information Available Social History Type Date Description Comments Sex Unknown ETOH Use Occasionally consumes alcohol Recreational Drug Use Denies Drug Use Tobacco Use Start: Unknown End: Unknown Patient is a former smoker QUIT 1985 Allergies, Adverse Reactions, Alerts Description No Known Drug Allergies Medications Active Medications SIG Qnty Indications Ordering Provide r Date Levothyroxine Sodium 100mcg Tablet s Take One Tablet By Mouth Every Morning On An Empty Stomach Once A Day Unknown Zolmitriptan 5mg Tablets Dispers as needed Delfino Aburto M.D. Ibuprofen 400mg Tablets 400 mg by mouth every 6 hours as needed for pain Unknown Immunizations Description No Information Available Vital Signs Date Vital Result Comment 11/27/2020 10:26am BP Systolic 129 mmHg BP Diastolic 91 mmHg Body Temperature 98.4 F Height 64 inches 5'4" Weight 187.00 lb BMI (Body Mass Index) 32.1 kg/m2 [place] Body Weight 120 lb Weight 84.823 kg BSA (Body Surface Area) 1.90 m2 Results Description No Information Available Procedures Description No Information Available Medical Devices Description No Information Available Encounters Description No Information Available Assessments Description No Information Available Plan of Treatment No Information Available Functional Status Description No Information Available Mental Status Description No Information Available Referrals Refer to Reason for Referral Status Appt Date Damien Pino MD [facility] Scheduled 11/27/[address] [address] [phone]
--- OUTSIDE RECORDS SUMMARY | 2021-01-05 10:59 | CCD ---
Author Author [facility] Organization [facility] Address Unknown Phone Unavailable Care Team Providers Care Service Porter Name Role Phone Delfino Aburto Unavailable PROBLEMS Type Condition ICD9-CM Code NCY18-[place] Code Onset Dates Condition S tatus W/U Status Risk SNOMED Code Notes Problem Vitamin D deficiency E55.9 Active confirmed 96216168 Problem Colon cancer screening Z12.11 Active confirmed 113583842 Problem Mixed hyperlipidemia E78.2 Active confirmed 412966326 Problem Palpitations R00.2 Active confirmed 2596402 2 Problem Borderline osteopenia M85.80 Active confirmed 507415958 Problem Overweight E66.3 Active confirmed 214987761 Problem Vitamin B12 deficiency E53.8 Active confirmed 639102356 Problem DJD (degenerative joint disease), cervical M50.30 Active confirmed 16720100 Problem Hx of colonic polyps Z86.010 Active confirmed 813407711 Problem Migraine without aura, not intractable, with sta tus migrainosus G43.001 Active confirmed 19317519 Problem Family history of colon cancer Z80.0 Active confir med 078771343 Problem IFG (impaired fasting glucose) R73.01 Active confir med 403147217 Problem High risk medication use Z79.899 Active confirmed 587633440298499 Problem Breast cancer screening Z12.39 Active confirmed 199527495 Problem Family history of breast cancer Z80.3 Active confi rmed 890791460 Problem Metatarsalgia of right foot M77.41 Active conf irmed 340105344604633 Problem Cervical cancer screening Z12.4 Active confirmed 626493393 Problem Lumbar spondylosis M47.816 Active confirmed 228620207 Problem Hypothyroidism, unspecified E03.9 Active confirmed 40957616 Problem Osteoarthritis of knees, bilateral M17.0 Activ e confirmed 699540578 Problem Psoriatic arthritis L40.50 Active confirmed 506041051 Problem Plaque psoriasis L40.0 Active confirmed 200 664823 Problem MARK II (cervical intraepithelial neoplasia II) N87 .1 Active confirmed 488903349 Problem Hx pulmonary embolism Z86.711 Active confirmed 965718046 ALLERGIES Allergen (clinical drug ingredient) Drug/Non Drug Allergy do cumented on EMR Reaction Allergy Type Onset Date Status Estrogens Conjugated Pulmonary embolism Drug Allergy Active ENCOUNTERS from 1965 to 2020-11-13 Encounter Location Date Provider Diagnosis [facility] [address] [facility] [phone] [place] [address] Nov, 2020 Delfino Lamonte Dyspepsia R10.13 ; [...] Education Language: Question Answer Notes Languages spoken: Lithuanian Religious: Question Answer Notes Religious 33 None Sexual Hx: Question Answer Notes [...] No Information VITAL SIGNS Weight 189.4 lbs Nov, Weight-kg [...] with Differential Reviewed date:11/12/2020 13:00:25 Interpretation: Performing Lab:[facility] [address] [facility] [address] , ,[place] [address] WHITE BLOOD COUNT 7.5 4.0-10.0 RED BLOOD [...] Profile (CMP) Reviewed date:11/12/2020 13:00:19 Interpretation: Performing Lab:[facility] [address] [facility] [address] , ,[place] [address] GLUCOSE, FASTING 90 70-100 BLOOD UREA NITROGEN [...] 0.9 1.2-2.2 C REACTIVE PROTEIN QUANTITATIV (At [facility] L [facility]) Reviewed date:11/12/2020 13:00:39 Interpretation: Performing Lab:[facility] [address] [place] [address] , ,[place] [address] C REACTIVE PROTEIN QUANTITATIV 0.33 0.00-0.30 ERYTHROCYTE SEDIMENTATION RATE Reviewed date:11/12/2020 13:00:12 Interpretation: Performing Lab:[facility] [address] [place] [address] , ,[place] [address] ERYTHROCYTE SEDIMENTATION RATE 25 0-30 FREE T4 & TSH PANEL Reviewed date:11/12/2020 13:00:28 Interpretation: Performing Lab:[facility] [address] [facility] [address] , ,[place] [address] THYROID STIMULATING HORMONE 2.040 0.358-3.740 FREE T4 1.09 0.76-1.46 HEMOGLOBIN A1c Reviewed date:11/12/2020 13:00:09 Interpretation: Performing Lab:[facility] [address] [place] [address] , ,[place] [address] HEMOGLOBIN A1c 5.5 ESTIMATED AVERAGE GLUCOSE 111 60-110 LIPASE Reviewed date:11/12/2020 13:00:21 Interpretation: Performing Lab:[facility] [address] [place] [address] , ,[place] [address] LIPASE 138 73-393 REASON FOR VISIT ER F/U ? gallbladder attack MEDICAL (GENERAL) HISTORY Type Description Date Medical History DJD LS sp 03/2008 L5-S1 disce ctomy with Dr. Delong with post operative massive PE with secondary EMD, status post [place] filter in [address] [...] b y 08/2017 MRI Medical History tubular adenoma-04/[id number]-cvmew-G Medical History [facility] breast cancer risk score 10 .42% Medical History Gilbert's disease-01/2007 total bili 1.7 Medical History 11/20/19 colpo MARK II sp 12/31/19 LEEP[facility] Surgical History tonsillectomy 1983 Surgical [...] Clinical Notes Nov, Dyspepsia (ICD-10 - R10.13) C: repeat HIDA/EF (? mother c ho acalculus cholecystitis) (03/11/20 -H pylori IgG) (mother acalculus cholelithiasis) 11/11/20 given concerning for recurrent bilary colic [...] 03/14/07 GES WNL T1/2 83 min Nov, RUQ pain (ICD-10 - R10.11) Nov, Borderline osteopenia (ICD-10 - M85.80) recheck BMD 11/2020 -1.9/-1.6/ c -6/-6/-7% change c/w 05/2016; therefore, + 11/2018 chloé 70 q7D given FRAX score and rate of loss 05/2016 -0.5/-0.2/1.8 c 0.3/-0.8/-0.3% change c/w 03/2013; therefore, CCR 04/2019 - TTG 07 Nov, 2020 Psoriatic arthritis (ICD-10 - L40.50) as per PP follows with Nahmias 09/13/19 CCP 9,CRP/ESR 0.4/27 Nov, Hypothyroidism, unspecified [...] 5.5 (99, 9) 03/14/20 MAGDALENA/creatinine 9 07 Nov, 2020 Overweight (ICD-10 - E66.3) Encouraged weight loss Nov, Lumbar spondylosis (ICD-10 - M47.816) Stable on home PT and mariam 200 BID/cyclo 10 TID prn c flares 09/15/17 by apt LLE radic pain had improved and Dr. 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 ale Lujan who offered ACDF 07/2016 mild improvement c [facility] 05/2013 Celebrex 200 changed to Mobic 15 by insurance but patient never started 06/2012 ale Delong who offered C5/6 ACDF and started Neurontin 300 BID which patient states she did not start 2010-patient did not like [facility]-continue home PT 12/2014 -H pylori 07 Nov, 2020 Vitamin B12 deficiency (ICD-10 - E53.8) [...] colp MARK II sp 12/31/19 LEEP Yordy, [facility] Nov, Colon cancer screening (ICD-10 - Z12.11) [...] if not improved in 4WContingency: xray, PT Dyspepsia C: repeat HIDA/EF (? mother c ho acalculus cholecystitis) (03/11/20 - H pylori IgG) (mother acalculus cholelithiasis)11/11/20 given concerning for recurrent bilary colic (possibly [...] colon-04/2021 -W Borderline osteopenia recheck BMD 11/2020 -1.9/-1.6/ c -6/-6/-7% change [...] per PPfollows wit h Nahmias09/13/19 CCP 9,CRP/ESR 0.4/ Mixed hyperlipidemia Continue dietary co ntrol03/14/20 104//2020 109/58/101, 0. 104/53/104, <0. 95/62/55, 110, 0.410/2016 lipids 116/62/126 Hypothyroidism, unspecified 05/2018 US he tero gland s n/03/14/20 0.6, 1.27 0.22, 1.1 on 4.6, 1.1; therefore, 88 to 1.2, 1. 0.5, 1.07/2017 1.5, 1.0 on 1. 2. 2.06/2013 5.5 therefore increased 75 to 1. 2.810/2012 4.5 therefore LT4 62.5 increased to 756/2011 2.610/2010 TSH 2.4 on LT4 62. TSH 3.1-increase LT4 from 50 to 62.5 Breast cancer screening 12/2019 B C1 michelle mogram Plaque psoriasis as per PSA06/19/19 ix ekizumab (IL-17A antag) bolus/maintenance started by Sonya rachel marked improvement of PSA/PP06/20/19 -B/C/TB Gold/HIV Metatarsalgia of right foot Stable on cu rrent obodkau67/2015 started MT pad and Mobic 15 QD [...] ADA dietno 1DR c DM, s hypo s03/14/20 5.2 (92, 11)09/09/19 5.6 (94, 21)04/2019 5. A1C 5.5 (99, 9)03/14/20 MAGDALENA/creatinine 9 Cervical cancer screening 11/08/19 ASCUS, cannot ro HGSIL/-HPV; colp MARK II sp 12/31/19 LEEReginald Scales, [facility] Migraine without aura, not intractable, with status [...] mental fogginess) Vitamin B12 deficiency 11/2017 13.9, 919/ 2016 hgb stable at 13.1, 911/8/21 391 [place] 419[address]/2017 38107/2017 35211/2016 B12 307; therefore, 1 mg po QD started05/2018 RBC folate 592 Overweight Encouraged weight lo [...] as per and referred to Dr. Lujan DJD (degenerative joint disease), cervical Stable on [...] strongly advised to reduce painting work11/[address] Lujan who offered ACD mild improvement c [facility]05/2013 Celebrex 200 changed to Mobic 15 by insurance but patient never started06/2012 established c Baljeet who offered C5/6 ACDF and started Neurontin 300 BID which patient states she did not [id number] did not like [facility]-continue home PT12/2014 -H pylori Treatment Notes Test Name Order Date GASTROINTESTINAL GI PANEL (GIPANEL) 2020-11-11 [facility] GALLBLADDER U/S 2020-11-11 Next Appt Details 5M, BW NOW Reason: Provider Name:Jyoti Mcdermott, 2020-11-24 09:15:00 AM, [address] [facility], , [place], [address], Provider Name:Delfino Aburto, 2021-03-13 0 8:15:00 AM, [address] [facility], , [place], [address], Insurance Providers Payer Name Payer Address Payer Phone Insured Name Patient Relati onship to Insured Coverage Start Date Coverage End Date [facility] [address] [facility] [phone] [id number] SHARON ROSALES [id number]
--- OUTSIDE RECORDS SUMMARY | 2021-01-05 10:59 | CCD | Continuity of Care Document ---
Author Author Kelsey PINO MD Organization Unknown Address [address] [place] [address] Phone [phone] Care Team Providers Care Recruiting Consultant Name Role Phone Delfino Aburto M.D. AUTM [phone] Problems Description No Information Available Social History [...] lb BMI (Body Mass Index) 32.1 kg/m2 [place] Body Weight 120 lb Weight 84.823 kg BSA (Body Surface Area) 1.90 m2 Results Description No Information Available Procedures Date Code Description Status 11/27/2020 [address] Office/Outpatient New Moderate M DM 45-59 Minutes Completed Medical Devices Description No Information Available Encounters Type Date Location Provider Dx Diagnosis Office Visit 11/27/2020 10:30a [facility] saloni Pino MD R10.11 Right upper quadrant pain R10.9 Unspecified abdominal pain Assessments Date Code Description Provider 11/27/2020 R10.11 Right upper quadrant pain Rip Pino MD 11/27/2020 R10.9 Abdominal wall pain Damien loomis MD Plan of Treatment Future Appointment(s):* 01/19/2021 10:30 am - TAVIA Major at [facility] * 01/05/2021 3:30 pm - Damien Pino MD at [facility] 11/27/2020 - Damien Pino MD* R10.11 Right upper quadrant pain* Comments: * Patient complains of episodic right upper abdominal pain which sounds to me is biliary colic type in nature. She says this been going for several months although on further questioning she has had previous episodes of this and has had previous work-up of this. Only abnormality seen on most recent ultrasound is a small cholelith or small polyp. She did have a prior HIDA scan years back that shows mildly abnormal ejection fraction of 32%. I discussed with her the differences between biliary dyskinesia versus cholelithiasis and effectiveness of cholecystectomy in controlling symptoms. Essentially there is less certainty of full resolution of the abdominal pain with biliary dyskinesia as opposed to cholelithiasis so she may still have some lingering symptoms after cholecystectomy. She is comfortable with this and would like to proceed with cholecystectomy. I will schedule her for robotic assisted laparoscopic cholecystectomy with plan to use ICG and firefly for biliary tract identification.I discussed with the patient the details of the proposed procedure, the benefits of performing the procedure, the most common risks on doing the procedure. This may include risks of general anesthesia, risks of laparoscopy including bowel and vascular injury in particular risk for cholecystectomy specifically bile duct injury and bile leakage. Patient reports of a significant history of developing PE perioperatively during back surgery for which she was reintubated. She is off anticoagulation now and she has an old IVC filter in place. As she would remain at risk, I told her that I would use both chemical and mechanical DVT prophylaxis on her as such we will give her a dose of heparin 5000 units subcutaneously preop. This might mild increased risk for oozing on the gallbladder bed but overall I do not think it will terribly increase the risk for uncontrollable bleeding.Consent obtained from the patient. * R10.9 Abdominal wall pain* Comments:* I think she has a separate complaint of right lateral or lower subcostal wall pain as the character of the discomfort is different. This seems to be more musculoskeletal may be nerve impingement in nature. I told her to place some alternating warm and cold compress to the area as well she could take some NSAIDs or Tylenol prior to activity for this. I told her I do not think this will resolve with the cholecystectomy in and of itself. But most of the time this settles down spontaneously Functional Status Description No Information Available Mental Status Description No Information Available Referrals Refer to Reason for Referral Status Appt Date Damien Pino MD [facility] Scheduled 11/27/[address] [place] [address] [phone]
--- OUTSIDE RECORDS SUMMARY | 2021-01-05 10:59 | CCD ---
Author Author [facility] Organization [facility] Address Unknown Phone Unavailable Care Team Providers Care Electron Tube Assembler Name Role Phone Delfino Aburto Unavailable PROBLEMS Type Condition ICD9-CM Code DGD06-XN Code Onset Dates Condition S tatus W/U Status Risk SNOMED Code Notes Problem Colon cancer screening Z12.11 Active confirmed 026796108 Problem Metatarsalgia of right foot M77.41 Active conf irmed 586513953602695 Problem Palpitations R00.2 Active confirmed 5946720 2 Problem Vitamin D deficiency E55.9 Active confirmed 53417319 Problem Mixed hyperlipidemia E78.2 Active confirmed 463679360 Problem Osteoarthritis of knees, bilateral M17.0 Activ e confirmed 729685144 Problem Borderline osteopenia M85.80 Active confirmed 382543668 Problem Overweight E66.3 Active confirmed 249606422 Problem Lumbar spondylosis M47.816 Active confirmed 432431334 Problem Family history of colon cancer Z80.0 Active confir med 228559259 Problem Family history of breast cancer Z80.3 Active confi rmed 136523983 Problem MARK II (cervical intraepithelial neoplasia II) N87 .1 Active confirmed 356070455 Problem Vitamin B12 deficiency E53.8 Active confirmed 680574109 Problem DJD (degenerative joint disease), cervical M50.30 Active confirmed 67626961 Problem Hx pulmonary embolism Z86.711 Active confirmed 133380896 Problem Hx of colonic polyps Z86.010 Active confirmed 155380593 Problem Migraine without aura, not intractable, with sta tus migrainosus G43.001 Active confirmed 54857375 Problem Hypothyroidism, unspecified E03.9 Active confirmed 25122358 Problem IFG (impaired fasting glucose) R73.01 Active confir med 287124988 Problem High risk medication use Z79.899 Active confirmed 700671374321112 Problem Plaque psoriasis L40.0 Active confirmed 200 423236 Problem Psoriatic arthritis L40.50 Active confirmed 704950737 ALLERGIES Allergen (clinical drug ingredient) Drug/Non Drug Allergy do cumented on EMR Reaction Allergy Type Onset Date Status Estrogens Conjugated Pulmonary embolism Drug Allergy Active ENCOUNTERS from 1965 to 2020-11-04 Encounter Location Date Provider Diagnosis [place] [id number] [facility] [phone] [place] [address] Oct, Delfino Aburto IMMUNIZATIONS Vaccine Route Administration Date Status Influenza 6mo & up Fluzone IM Intramuscular Dec 22, 2015 Admi nistered COVID-19 dose #2 given elsewhere Unspecified Unknown [...] Education Language: Question Answer Notes Languages spoken: Syriac Christian: Question Answer Notes Christian 33 None [...] Information RESULTS No Results REASON FOR VISIT Gallbladder? MEDICAL (GENERAL) HISTORY Type Description Date Medical History DJD LS sp 03/2008 L5-S1 disce ctomy with Dr. Delong with post operative massive PE with secondary EMD, status post [place] filter in [address] [...] b y 08/2017 MRI Medical History tubular adenoma-04/[id number]-onxmj-V Medical History Tammy Vera breast cancer risk [...] for 84 days Next Appt Details Provider Name:Delfino Aburto, 2020-11-11 1 0:15:00 AM, [address] [place] [phone], [place], [place], [address] [place], [place] [phone] Provider Name:Jyoti Mcdermott, 2020-11-24 09:15:00 AM, [address] [place] [phone], [place], [place], [address] [place], [place] [phone] Provider Name:Delfino Aburto, 2021-03-13 0 8:15:00 AM, [address] [place] [address], [place], [place], [address] [place], [place] [phone] Insurance Providers Payer Name Payer Address Payer Phone Insured Name Patient Relati onship to Insured Coverage Start Date Coverage End Date [facility] [address] [facility] [phone] [id number] SHARON ROSALES [id number]
--- OUTSIDE RECORDS SUMMARY | 2021-01-05 11:00 | CCD ---
Author Author [facility] Organization [facility] Address Unknown Phone Unavailable Care Team Providers Care Supervisor Doping Name Role Phone [facility] Unavailable Unavailable Shirley Aburto MD Unavailable Unavailable Shirley Aburto MD Unavailable Unavailable Shirley Aburto MD Unavailable Unavailable Shirley Aburto MD Unavailable Unavailable Shirley Aburto MD Unavailable Unavailable LamonteShirley ortiz MD Unavailable Unavailable LamonteShirley ortiz MD Unavailable Unavailable Shirley Aburto MD Unavailable Unavailable LamonteShirley ortiz MD Unavailable Unavailable Shirley Aburto MD Unavailable Unavailable LamonteShirley ortiz MD Unavailable Unavailable LamonteShirley ortiz MD Unavailable Unavailable LaomnteShirley ortiz MD Unavailable Unavailable LamonteShirley ortiz MD Unavailable Unavailable LamonteShirley ortiz MD Unavailable Unavailable LamonteShirley ortiz MD Unavailable Unavailable LamonteShirley ortiz MD Unavailable Unavailable Shirley Aburto MD Unavailable Unavailable LamonteShirley ortiz MD Unavailable Unavailable LamonteShirley ortiz MD Unavailable Unavailable LamonteShirley ortiz MD Unavailable Unavailable LamonteShirley ortiz MD Unavailable Unavailable LamonteShirley ortiz MD Unavailable Unavailable LamonteShirley ortiz MD Unavailable Unavailable LamonteShirley ortiz MD Unavailable Unavailable Shirley Aburto MD Unavailable Unavailable Shirley Aburto MD Unavailable Unavailable LamonteShirley ortiz MD Unavailable Unavailable LamonteShirley ortiz MD Unavailable Unavailable LamonteShirley ortiz MD Unavailable Unavailable LamonteShirley ortiz MD Unavailable Unavailable LamonteShirley ortiz MD Unavailable Unavailable LamonteShirley ortiz MD Unavailable Unavailable LamonteShirley ortiz MD Unavailable Unavailable LamonteShirley ortiz MD Unavailable Unavailable LamonteShirley ortiz MD Unavailable Unavailable LamonteShirley ortiz MD Unavailable Unavailable LamonteShirley ortiz MD Unavailable Unavailable Lamonte, E Delfino MD Unavailable Unavailable Shirley Aburto MD Unavailable Unavailable Shirley Aburto MD Unavailable Unavailable Shirley Aburto MD Unavailable Unavailable Shirley Aburto MD Unavailable Unavailable Shirley Aburto MD Unavailable Unavailable Shirley Aburto MD Unavailable Unavailable Shirley Aburto MD Unavailable Unavailable Shirley Aburto MD Unavailable Unavailable Shirley Aburto MD Unavailable Unavailable Shirley Aburto MD Unavailable Unavailable Shirley Aburto MD Unavailable Unavailable Shirley Aburto MD Unavailable Unavailable Shirley Aburto MD Unavailable Unavailable Shirley Aburto MD Unavailable Unavailable Shirley Aburto MD Unavailable Unavailable Shirley Aburto MD Unavailable Unavailable Shirley Aburto MD Unavailable Unavailable Shirley Aburto MD Unavailable Unavailable Shirley Aburto MD Unavailable Unavailable Shirley Aburto MD Unavailable Unavailable Shirley Aburto MD Unavailable Unavailable Sukh SAL MD Unavailable Unavailable Sukh SAL MD Unavailable Unavailable Sukh SAL MD Unavailable Unavailable Sukh SAL MD Unavailable Unavailable Sukh SAL MD Unavailable Unavailable Sukh SAL MD Unavailable Unavailable Sukh SAL MD Unavailable Unavailable Sukh SAL MD Unavailable Unavailable Sukh SAL MD Unavailable Unavailable Sukh SAL MD Unavailable Unavailable Sukh SAL MD Unavailable Unavailable Sukh SAL MD Unavailable Unavailable Sukh SAL MD Unavailable Unavailable Sukh SAL MD Unavailable Unavailable Sukh SAL MD Unavailable Unavailable Sukh SAL MD Unavailable Unavailable Sukh SAL MD Unavailable Unavailable Sukh SAL MD Unavailable Unavailable Sukh SAL MD Unavailable Unavailable Sukh SAL MD Unavailable Unavailable Sukh SAL MD Unavailable Unavailable Sukh SAL MD Unavailable Unavailable Sukh SAL MD Unavailable Unavailable Sukh SAL MD Unavailable Unavailable Sukh SAL MD Unavailable Unavailable Sukh SAL MD Unavailable Unavailable Sukh SAL MD Unavailable Unavailable Sukh SAL MD Unavailable Unavailable Sukh SAL MD Unavailable Unavailable Sukh SAL MD Unavailable Unavailable Sukh SAL MD Unavailable Unavailable Sukh SAL MD Unavailable Unavailable Sukh SAL MD Unavailable Unavailable Sukh SAL MD Unavailable Unavailable Sukh SAL MD Unavailable Unavailable JENNIFER, VICTOR HUGO LAWRENCE PA Unavailable Unavailable JENNIFER, VICTOR HUGO LAWRENCE PA Unavailable Unavailable JENNIFER, VICTOR HUGO LAWRENCE PA Unavailable Unavailable JENNIFER, VICTOR HUGO LAWRENCE PA Unavailable Unavailable JENNIFER, VICTOR HUGO LAWRENCE PA Unavailable Unavailable JENNIFER, VICTOR HUGO LAWRENCE PA Unavailable Unavailable JENNIFER, VICTOR HUGO LAWRENCE PA Unavailable Unavailable JENNIFER, VICTOR HUGO LAWRENCE PA Unavailable Unavailable JENNIFER, VICTOR HUGO LAWRENCE PA Unavailable Unavailable JENNIFER, VICTOR HUGO LAWRENCE PA Unavailable Unavailable JENNIFER, VICTOR HUGO LAWRENCE PA Unavailable Unavailable JENNIFER, VICTOR HUGO LAWRENCE PA Unavailable Unavailable JENNIFER, VICTOR HUGO LAWRENCE PA Unavailable Unavailable JENNIFER, VICTOR HUGO LAWRENCE PA Unavailable Unavailable JENNIFER, VICTOR HUGO LAWRENCE PA Unavailable Unavailable JENNIFER, VICTOR HUGO LAWRENCE PA Unavailable Unavailable JENNIFER, VICTOR HUGO LAWRENCE PA Unavailable Unavailable JENNIFER, VICTOR HUGO LAWRENCE PA Unavailable Unavailable JENNIFER, VICTOR HUGO LAWRENCE PA Unavailable Unavailable JENNIFER, VICTOR HUGO LAWRENCE PA Unavailable Unavailable JENNIFER, VICTOR HUGO LAWRENCE PA Unavailable Unavailable JENNIFER, VICTOR HUGO LAWRENCE PA Unavailable Unavailable MCELHERAN, BETSEY PA Unavailable Unavailable MCELHERELOY, BETSEY PA Unavailable Unavailable MCELHERAN, BETSEY PA Unavailable Unavailable MCELHERELOY, BETSEY PA Unavailable Unavailable MCELHERELOY, BETSEY PA Unavailable Unavailable MCELHERELOY, BETSEY PA Unavailable Unavailable MCELHERELOY, BETSEY PA Unavailable Unavailable MCELHERAN, BETSEY PA Unavailable Unavailable MCELAN, BETSEY PA Unavailable Unavailable MCELAN, BETSEY PA Unavailable Unavailable MCELAN, BETSEY PA Unavailable Unavailable MCELLEXA, BETSEY PA Unavailable Unavailable MCELHERELOY, BETSEY PA Unavailable Unavailable MCELLEXA, BETSEY PA Unavailable Unavailable MCELHERELOY, BETSEY PA Unavailable Unavailable MCELHERELOY, BETSEY PA Unavailable Unavailable MCELHERELOY, BETSEY PA Unavailable Unavailable MCELHERELOY, BETSEY PA Unavailable Unavailable MCELHERELOY, BETSEY PA Unavailable Unavailable MCELHERELOY, BETSEY PA Unavailable Unavailable MCELHERELOY, BETSEY PA Unavailable Unavailable MCELHERAN, BETSEY PA Unavailable Unavailable MCELHERAN, BETSEY PA Unavailable Unavailable MCELHERAN, BETSEY PA Unavailable Unavailable MCELHERAN, BETSEY PA Unavailable Unavailable MCELHERAN, BETSEY PA Unavailable Unavailable MCELHERAN, BETSEY PA Unavailable Unavailable MCELHERAN, BETSEY PA Unavailable Unavailable MCELHERAN, BETSEY PA Unavailable Unavailable Alicea, B Syed DO Unavailable Unavailable Alicea, B Syed DO Unavailable Unavailable Alicea, B Syed DO Unavailable Unavailable Alicea, B Syed DO Unavailable Unavailable Alicea, B Syed DO Unavailable Unavailable Alicea, B Syed DO Unavailable Unavailable Alicea, B Syed DO Unavailable Unavailable Alicea, B Syed DO Unavailable Unavailable Alicea, B Syed DO Unavailable Unavailable Alicea, B Syed DO Unavailable Unavailable Alicea, B Syed DO Unavailable Unavailable Alicea, B Syed DO Unavailable Unavailable Alicea, B Syed DO Unavailable Unavailable Alicea, B Syed DO Unavailable Unavailable Alicea, B Syed DO Unavailable Unavailable Alicea, B Syed DO Unavailable Unavailable CHARU ALICEAON Unavailable Unavailable Delong, Sylvester Medina MD Unavailable Unavailable Delong, Sylvester Medina MD Unavailable Unavailable Delong, Sylvester Medina MD Unavailable Unavailable Delong, Sylvester Medina MD Unavailable Unavailable Delong, Sylvester Medina MD Unavailable Unavailable Delong, Sylvester Medina MD Unavailable Unavailable Delong, Sylvester Medina MD Unavailable Unavailable Delong, Sylvester Medina MD Unavailable Unavailable Delong, Sylvester Medina MD Unavailable Unavailable Delong, Sylvester Medina MD Unavailable Unavailable Delong, Sylvester Medina MD Unavailable Unavailable Delong, Sylvester Medina MD Unavailable Unavailable Delong, Sylvester Medina MD Unavailable Unavailable Delong, Sylvester Medina MD Unavailable Unavailable Delong, Sylvester Medina MD Unavailable Unavailable Delong, Sylvester Medina MD Unavailable Unavailable Delong, Sylvester Medina MD Unavailable Unavailable Delong, Sylvester Medina MD Unavailable Unavailable Delong, Sylvester Medina MD Unavailable Unavailable Delong, L Adam BANUELOS Unavailable Unavailable Delong, Sylvester Medina MD Unavailable Unavailable Delong, Sylvester Medina MD Unavailable Unavailable Delong, Sylvester Medina MD Unavailable Unavailable Delong, Sylvester Medina MD Unavailable Unavailable Delong, L Adam BANUELOS Unavailable Unavailable Delong, L Adam BANUELOS Unavailable Unavailable Delong, Sylvester Medina MD Unavailable Unavailable Delong, L Adam BANUELOS Unavailable Unavailable Delong, L Adam BANUELOS Unavailable Unavailable Delong, Sylvester Medina MD Unavailable Unavailable Delong, Sylvester Medina MD Unavailable Unavailable Delong, Sylvester Medina MD Unavailable Unavailable Delong, Sylvester Medina MD Unavailable Unavailable Delong, Sylvester Medina MD Unavailable Unavailable Delong, Sylvester Medina MD Unavailable Unavailable Delong, Sylvester Medina MD Unavailable Unavailable Delong, Sylvester Medina MD Unavailable Unavailable Delong, L Adam BANUELOS Unavailable Unavailable Delong, Sylvester Medina MD Unavailable Unavailable Delong, Sylvester Medina MD Unavailable Unavailable Delong, Sylvester Medina MD Unavailable Unavailable Delong, L Adam BANUELOS Unavailable Unavailable Delong, L Adam BANUELOS Unavailable Unavailable Delong, L Adam BANUELOS Unavailable Unavailable Delong, L Adam BANUELOS Unavailable Unavailable Delong, Sylvester Medina MD Unavailable Unavailable Delong, Sylvester Medina MD Unavailable Unavailable Delong, L Adam BANUELOS Unavailable Unavailable Delong, L Adam BANUELOS Unavailable Unavailable Delong, L Adam BANUELOS Unavailable Unavailable JENNIFER, VICTOR HUGO LAWRENCE PA Unavailable Unavailable JENNIFER, VICTOR HUGO LAWRENCE PA Unavailable Unavailable JENNIFER, VICTOR HUGO LAWRENCE PA Unavailable Unavailable JENNIFER, VICTOR HUGO LAWRENCE PA Unavailable Unavailable JENNIFER, VICTOR HUGO LAWRENCE PA Unavailable Unavailable JENNIFER, VICTOR HUGO LAWRENCE PA Unavailable Unavailable JENNIFER, VICTOR HUGO LAWRENCE PA Unavailable Unavailable JENNIFER, VICTOR HUGO LAWRENCE PA Unavailable Unavailable JENNIFER, VICTOR HUGO LAWRENCE PA Unavailable Unavailable JENNIFER, VICTOR HUGO LAWRENCE PA Unavailable Unavailable JENNIFER, VICTOR HUGO LAWRENCE PA Unavailable Unavailable JENNIFER, VICTOR HUGO LAWRENCE PA Unavailable Unavailable JENNIFER, VICTOR HUGO LAWRENCE PA Unavailable Unavailable JENNIFER, VICTOR HUGO LAWRENCE PA Unavailable Unavailable JENNIFER, VICTOR HUGO LAWRENCE PA Unavailable Unavailable JENNIFER, VICTOR HUGO LAWRENCE PA Unavailable Unavailable JENNIFER, VICTOR HUGO LAWRENCE PA Unavailable Unavailable JENNIFER, VICTOR HUGO LAWRENCE PA Unavailable Unavailable JENNIFER, VICTOR HUGO LAWRENCE PA Unavailable Unavailable JENNIFER, VICTOR HUGO LAWRENCE PA Unavailable Unavailable JENNIFER, VICTOR HUGO LAWRENCE PA Unavailable Unavailable JENNIFER, VICTOR HUGO LAWRENCE PA Unavailable Unavailable Re-disclosure Warning The records that you are about to access may contain information from federally-assisted alcohol or drug abuse programs. If such information is present, then the following federally mandated warning applies: This information has been disclosed to you from records protected by federal confidentiality rules (42 CFR part 2). The federal rules prohibit you from making any further disclosure of this information unless further disclosure is expressly permitted by the written consent of the person to whom it pertains or as otherwise permitted by 42 CFR part 2. A general authorization for the release of medical or other information is NOT sufficient for this purpose. The Federal rules restrict any use of the information to criminally investigate or prosecute any alcohol or drug abuse patient.The records that you are about to access may contain highly sensitive health information, the redisclosure of which is protected by Article 27-F of the [facility] Public Health law. If you continue you may have access to information: Regarding HIV / AIDS; Provided by facilities licensed or operated by the [facility] Office of Mental Health; or Provided by the [facility] Office for People With Developmental Disabilities. If such information is present, then the following [facility] mandated warning applies: This information has been disclosed to you from confidential records which are protected by state law. State law prohibits you from making any further disclosure of this information without the specific written consent of the person to whom it pertains, or as otherwise permitted by law. Any unauthorized further disclosure in violation of state law may result in a fine or half-way sentence or both. A general authorization for the release of medical or other information is NOT sufficient authorization for further disc losure. Family History Family Member Name Family Member Gender Family Member Status Date o f Status Description Data Source(s) Unknown Unknown Problem MEDENT ([facility]) pgm Unknown Female Problem MEDENT ([facility]) Encounters Encounter Providers Location Date Indications Data Source(s ) Unknown [address] [facility] [address] [address] 12/30/2020 12:00:00 AM EDT eCW1 ([facility]) Outpatient [address] [facility] [address] 12/29/2020 12:00:00 AM EDT eCW1 ([facility]) OFFICE OUTPATIENT VISIT 15 MINUTES Attender: BETSEY SQUIRES Physical Therapy 12/03/2020 04:30:00 PM EDT MEDENT ([facility]) Unknown [address] [facility] [address] [address] 2020 12:00:00 AM EDT eCW1 ([facility]) Outpatient Attender: WILLIAM Winters/Porter/Justus/ Jovi 11/27/2020 10:30:00 AM EDT MEDENT ([facility]) Unknown [address] [facility] [address] [address] 11/21/2020 12:00:00 AM EDT eCW1 ([facility]) [place] [address] [facility] [place] [address] 11/21/2020 12:00:00 AM EDT [facility] [place] [address] [facility] [place] [address] 11/11/2020 12:00:00 AM EDT eCW1 ([facility] [place] [place] [address] [facility] [place] [address] 11/11/2020 12:00:00 AM EDT eCW1 ([facility] [place] [place] [address] [facility] [place] [address] 11/05/2020 12:00:00 AM EDT eCW1 ([facility] [place]) Outpatient Attender: LAWRENCE RODRIGUEZ PAConsultant: [facility] osp [id number] 11/03/2020 08:46:00 AM EDT [facility] Emergency Attender: LAWRENCE RODRIGUEZ PAReferrer: Lorene Aburto MD EMERGENCY ROOM-ER 11/03/2020 07:14:00 AM EDT - 11/03/2020 10:12:00 AM EDT [facility] Patient discharged. Unknown [address] [facility] [address] 11/03/2020 12:00:00 AM EDT eCW1 ([facility]) Unknown [address] [facility] [place] [address] 10/29/2020 12:00:00 AM EDT eCW1 ([facility] [place]) Outpatient Attender: Adam Delong MD Physical Therapy 10/13/2020 1 0:30:00 AM EDT MEDENT ([facility]) Out[place] [address] [facility] [address] 09/12/2020 12:00:00 AM EDT eCW1 ([facility] [place] [place] [address] [facility] [address] 08/18/2020 12:00:00 AM EDT eCW1 ([facility]) Unknown [address] [facility] [place] [address] 08/07/2020 12:00:00 AM EDT eCW1 ([facility]) Unknown [address] [facility] [address] 03/27/2020 12:00:00 AM EST eCW1 ([facility]) Unknown [address] [facility] [place] [address] 03/24/2020 12:00:00 AM EST eCW1 ([facility]) Outpatient [address] [facility] [address] [address] 03/19/2020 12:00:00 AM EST eCW1 ([facility]) Unknown [address] [facility] [address] 03/19/2020 12:00:00 AM EST eCW1 ([facility]) Unknown [address] [facility] [place] [address] 03/17/2020 12:00:00 AM EST eCW1 ([facility]) Emergency Attender: SYED ALICEAReferrer: Delfino Aburto MD EMERGENCY ROOM-ER 03/13/2020 12:09:00 PM EST - 03/13/2020 01:09:00 PM [facility] Patient discharged. Outpatient Attender: Syed Alicea DOConsultant: [facility] [id number] 03/13/2020 11:40:00 AM [facility] Unknown [address] [facility] [address] 03/12/2020 12:00:00 AM EST eCW1 ([facility]) Unknown [address] [facility] [address] 02/05/2020 12:00:00 AM EST eCW1 ([facility]) Unknown [address] [facility] [address] 01/30/2020 12:00:00 AM EST eCW1 ([facility]) Unknown [address] [facility] [address] [address] 01/07/2020 12:00:00 AM EST eCW1 ([facility]) (WC PROC) [facility] Procedure [address] [place] [address] 12/31/2019 12:00:00 AM EDT eCW1 ([facility]) Unknown [address] [facility], [facility] [address] 12/26/2019 12:00:00 AM EDT eCW1 ([facility]) Unknown [address] [facility] [address] 11/27/2019 12:00:00 AM EDT [facility]CW1 ([facility] Unknown [address] [facility] [place] [address] 11/27/2019 12:00:00 AM EDT eCW1 ([facility] Unknown [address] [facility] [address] 11/27/2019 12:00:00 AM EDT eCW1 ([facility] [address] [place] [address] 11/07/2019 12:00:00 AM EDT eCW1 ([facility] Immunizations Vaccine Date Status Description Data Source(s) COVID-19 dose #2 given elsewhere Unspecified 06/05/2020 01:5 6:00 PM EDT completed [facility]CW1 ([facility] [place]) COVID-19 dose #2 given elsewhere Unspecified 06/05/2020 01:5 6:00 PM EDT completed eCW1 ([facility]) COVID-19 dose #2 given elsewhere Unspecified 06/05/2020 01:5 6:00 PM EDT completed eCW1 ([facility] [place]) COVID-19 dose #2 given elsewhere Unspecified 06/05/2020 01:5 6:00 PM EDT completed eCW1 ([facility] [place]) COVID-19 dose #2 given elsewhere Unspecified 06/05/2020 01:5 6:00 PM EDT completed eCW1 ([facility] [place]) COVID-19 dose #2 given elsewhere Unspecified 06/05/2020 01:5 6:00 PM EDT completed eCW1 ([facility]) COVID-19 dose #2 given elsewhere Unspecified 06/05/2020 01:5 6:00 PM EDT completed eCW1 ([facility]) COVID-19 dose #2 given elsewhere Unspecified 06/05/2020 01:5 6:00 PM EDT completed eCW1 ([facility]) COVID-19 dose #2 given elsewhere Unspecified 06/05/2020 01:5 6:00 PM EDT completed eCW1 ([facility]) COVID-19 dose #2 given elsewhere Unspecified 06/05/2020 01:5 6:00 PM EDT completed eCW1 ([facility]) COVID-19 dose #2 given elsewhere Unspecified 06/05/2020 01:5 6:00 PM EDT completed eCW1 ([facility]) COVID-19 dose #2 given elsewhere Unspecified 06/05/2020 01:5 6:00 PM EDT completed eCW1 ([facility]) COVID-19 VACCINE Moderna 06/05/2020 12:00:00 AM EDT completed [employer] Vaccine Series Complete: YESThis Data wa s Submitted to [facility] Via [employer]. COVID-19 dose #1 given elsewhere Unspecified 05/08/2020 01:5 6:00 PM EST completed eCW1 ([facility]) COVID-19 dose #1 given elsewhere Unspecified 05/08/2020 01:5 6:00 PM EST completed eCW1 ([facility]) COVID-19 dose #1 given elsewhere Unspecified 05/08/2020 01:5 6:00 PM EST completed eCW1 ([facility]) COVID-19 dose #1 given elsewhere Unspecified 05/08/2020 01:5 6:00 PM EST completed eCW1 ([facility]) COVID-19 dose #1 given elsewhere Unspecified 05/08/2020 01:5 6:00 PM EST completed eCW1 ([facility]) COVID-19 dose #1 given elsewhere Unspecified 05/08/2020 01:5 6:00 PM EST completed eCW1 ([facility]) COVID-19 dose #1 given elsewhere Unspecified 05/08/2020 01:5 6:00 PM EST completed eCW1 ([facility]) COVID-19 dose #1 given elsewhere Unspecified 05/08/2020 01:5 6:00 PM EST completed eCW1 ([facility]) COVID-19 dose #1 given elsewhere Unspecified 05/08/2020 01:5 6:00 PM EST completed eCW1 ([facility]) COVID-19 dose #1 given elsewhere Unspecified 05/08/2020 01:5 6:00 PM EST completed eCW1 ([facility]) COVID-19 dose #1 given elsewhere Unspecified 05/08/2020 01:5 6:00 PM EST completed eCW1 ([facility]) COVID-19 dose #1 given elsewhere Unspecified 05/08/2020 01:5 6:00 PM EST completed eCW1 ([facility]) COVID-19 VACCINE Moderna 05/08/2020 12:00:00 AM EST completed [facility] Vaccine Series Complete: NOThis Data was Submitted to [facility] Via [employer]. FLU VACCINE QUADRIV [id number](4 YEARS AND OLDER)CELL D ERIVED 02/15/2020 12:00:00 AM EST completed [facility] Medications Medication Brand Name Start Date Product Form Dose Route Admi nistrative Instructions Pharmacy Instructions Status Indications Reaction Description Data Source(s) 5 mg 12/03/2020 12:00:00 AM EDT tablet,disintegrating 1 8 DISSOLVE 1 TABLET ON THE TONGUE AT THE ONSET OF HEADACHE, MAY REPEAT AFTER 2 HOURS IF HEADACHE RETURNS NEEDED DISSOLVE 1 TABLET ON THE TONGUE AT THE O NSET OF HEADACHE, MAY REPEAT AFTER 2 HOURS IF HEADACHE RETURNS NEEDED SOLD: 12/03/2020 [facility] 100 mcg 11/05/2020 12:00:00 AM EDT tablet 90 TAKE ONE TABLET BY MOUTH EVERY MORNING ON AN EMPTY STOMACH ONCE A DAY TAKE ONE TABLET BY MOUTH EVERY MORNING O N AN EMPTY STOMACH ONCE A DAY SOLD: 11/06/2020 [facility] 100 mg 10/14/2020 12:00:00 AM EDT capsule 90 TAKE ONE TO TWO CAPSULES BY MOUTH THREE TIMES A DAY TAKE ONE TO TWO CAPSULES BY MOUTH THREE TIMES A DAY SOLD: 10/25/2020 [facility] gabapentin 100 MG Oral Capsule Gabapentin 10/13/2020 12:00:00 AM EDT ORAL active [facility] mcg 08/08/2020 12:00:00 AM EDT tablet 90 TAKE ONE TABLET BY MOUTH EVERY MORNING ON AN EMPTY STOMACH TAKE ONE TABLET BY MOUTH EVERY MORNING O N AN EMPTY STOMACH SOLD: 08/12/2020 [facility] pantoprazole 40 MG Delayed Release Oral Tablet PANTOPRAZOLE SODIUM 03/20/2020 12:00:00 AM EST tablet,delayed release (DR/EC) 30 T MARICRUZ ONE TABLET BY MOUTH EVERY DAY TAKE ONE TABLET BY MOUTH EVERY DAY SOLD: 03/23/2020 [facility] pantoprazole 40 MG Delayed Release Oral Tablet Pantopr azole Sodium 40 MG Pantoprazole Sodium 40 MG 03/19/2020 12:00:00 AM EST 1.0 {tablet} active Pantoprazole Sodium 40 MG eCW1 ( [facility]) pantoprazole 40 MG Delayed Release Oral Tablet Pantopr azole Sodium 40 MG Pantoprazole Sodium 40 MG 03/19/2020 12:00:00 AM EST 1.0 {tablet} suspended Pantoprazole Sodium 40 MG eCW1 ( [facility]) pantoprazole 40 MG Delayed Release Oral Tablet Pantopr azole Sodium 40 MG Pantoprazole Sodium 40 MG 03/19/2020 12:00:00 AM EST 1.0 {tablet} active Pantoprazole Sodium 40 MG eCW1 ( [facility]) pantoprazole 40 MG Delayed Release Oral Tablet Pantopr azole Sodium 40 MG Pantoprazole Sodium 40 MG 03/19/2020 12:00:00 AM EST 1.0 {tablet} active Pantoprazole Sodium 40 MG eCW1 ( [facility]) pantoprazole 40 MG Delayed Release Oral Tablet Pantopr azole Sodium 40 MG Pantoprazole Sodium 40 MG 03/19/2020 12:00:00 AM EST 1.0 {tablet} active Pantoprazole Sodium 40 MG eCW1 ( [facility]) pantoprazole 40 MG Delayed Release Oral Tablet Pantopr azole Sodium 40 MG Pantoprazole Sodium 40 MG 03/19/2020 12:00:00 AM EST 1.0 {tablet} suspended Pantoprazole Sodium 40 MG eCW1 ( [facility]) pantoprazole 40 MG Delayed Release Oral Tablet Pantopr azole Sodium 40 MG Pantoprazole Sodium 40 MG 03/19/2020 12:00:00 AM EST 1.0 {tablet} active Pantoprazole Sodium 40 MG eCW1 ( [facility]) pantoprazole 40 MG Delayed Release Oral Tablet Pantopr azole Sodium 40 MG Pantoprazole Sodium 40 MG 03/19/2020 12:00:00 AM EST 1.0 {tablet} active Pantoprazole Sodium 40 MG eCW1 ( [facility]) pantoprazole 40 MG Delayed Release Oral Tablet Pantopr azole Sodium 40 MG Pantoprazole Sodium 40 MG 03/19/2020 12:00:00 AM EST 1.0 {tablet} suspended Pantoprazole Sodium 40 MG eCW1 ( [facility]) pantoprazole 40 MG Delayed Release Oral Tablet Pantopr azole Sodium 40 MG Pantoprazole Sodium 40 MG 03/19/2020 12:00:00 AM EST 1.0 {tablet} suspended Pantoprazole Sodium 40 MG eCW1 ( [facility]) . UNIT 02/15/2020 12:00:00 AM EST Injectable 1 US E DIRECTED USE DIRECTED SOLD: 02/15/2020 [facility] 5 mg 02/06/2020 12:00:00 AM EST tablet,disintegrating 6 DISSOLVE 1 TABLET ON TONGUE AT ONSET OF HEADACHE MAY REPEAT AFTER 2 HOURS NEEDED DISSOLVE 1 TABLET ON TONGUE AT ONSET OF HEADACHE MAY REPEAT AFTER 2 HOURS NEEDED SOLD: 08/18/2020 [facility] 100 mcg 02/06/2020 12:00:00 AM EST tablet 90 TAKE ONE TABLET BY MOUTH EVERY DAY IN THE MORNING ON AN EMPTY STOMACH TAKE ONE TABLET BY MOUTH EVERY DAY IN MORNING ON AN EMPTY STOMACH SOLD: 02/07/2020 [facility] 5 mg 02/06/2020 12:00:00 AM EST tablet,disintegrating 6 DISSOLVE 1 TABLET ON TONGUE AT ONSET OF HEADACHE MAY REPEAT AFTER 2 HOURS NEEDED DISSOLVE 1 TABLET ON TONGUE AT ONSET OF HEADACHE MAY REPEAT AFTER 2 HOURS NEEDED SOLD: 02/07/2020 [facility] 100 mcg 02/06/2020 12:00:00 AM EST tablet 90 TAKE ONE TABLET BY MOUTH EVERY DAY IN THE MORNING ON AN EMPTY STOMACH TAKE ONE TABLET BY MOUTH EVERY DAY IN MORNING ON AN EMPTY STOMACH SOLD: 05/11/2020 [facility] 5 mg 02/06/2020 12:00:00 AM EST tablet,disintegrating 6 DISSOLVE 1 TABLET ON TONGUE AT ONSET OF HEADACHE MAY REPEAT AFTER 2 HOURS NEEDED DISSOLVE 1 TABLET ON TONGUE AT ONSET OF HEADACHE MAY REPEAT AFTER 2 HOURS NEEDED SOLD: 05/30/2020 [facility] 5 mg 02/06/2020 12:00:00 AM EST tablet,disintegrating 6 DISSOLVE 1 TABLET ON TONGUE AT ONSET OF HEADACHE MAY REPEAT AFTER 2 HOURS NEEDED DISSOLVE 1 TABLET ON TONGUE AT ONSET OF HEADACHE MAY REPEAT AFTER 2 HOURS NEEDED SOLD: 10/25/2020 [facility] 5 mg 02/06/2020 12:00:00 AM EST tablet,disintegrating 6 DISSOLVE 1 TABLET ON TONGUE AT ONSET OF HEADACHE MAY REPEAT AFTER 2 HOURS NEEDED DISSOLVE 1 TABLET ON TONGUE AT ONSET OF HEADACHE MAY REPEAT AFTER 2 HOURS NEEDED SOLD: 09/29/2020 [facility] 100 mcg 11/07/2019 12:00:00 AM EDT tablet 90 TAKE ONE TABLET BY MOUTH EVERY DAY IN THE MORNING ON AN EMPTY STOMACH TAKE ONE TABLET BY MOUTH EVERY DAY IN MORNING ON AN EMPTY STOMACH SOLD: 11/08/2019 [facility] Insurance Providers Payer name Policy type / Coverage type Policy ID Covered republican ID Covered republican's relationship to johnson Policy Johnson Plan Information POMCO [id number] [id number] POMCO U [id number] Self [id number] POMCO U [id number] Spouse [id number] [facility] [id number] HU2 [id number] UMR U [id number] Spouse [id number] UMR [id number] S [id number] ANSI-Commercial [id number] ANSI-Commercial [id number] ANSI-Commercial [id number] ANSI-Commercial [id number] ANSI-Commercial [id number] ANSI-Commercial [id number] ANSI-Commercial [id number] ANSI-Commercial [id number] ANSI-Commercial [id number] ANSI-Commercial [id number] ANSI-Commercial [id number] [facility] [id number] HU [id number] ANSI-Commercial [id number] UMR O [id number] P [id number] POMCO [id number] HU2 [id number] POMCO [id number] HU2 [id number] POMCO PPO O [id number] S [id number] [employer] [id number] Family Dependent [id number] [employer] [id number] Family Dependent UMR [facility] [id number] HU2 [id number] UMR [id number] S [id number] UMR O [id number] S [id number] ANSI-Commercial [id number] ANSI-Commercial [id number] ANSI-Commercial [id number] Problems, Conditions, and Diagnoses Code Display Name Description Problem Type Effective Dates Data Source(s) Z79.899 Other senior care (current) drug therapy O THER [facility] (CURRENT) DRUG THERAPY Diagnosis 11/03/2020 07:14:00 AM [facility] E03.9 Hypothyroidism, unspecified HYPOTHYROIDISM, UNSPECIFIE D Diagnosis 11/03/2020 07:14:00 AM [facility] R10.11 Right upper quadrant pain RIGHT UPPER QUADRANT PAIN Di agnosis 11/03/2020 07:14:00 AM [facility] Z12.4 Cancer cervix - screening done Cervical cancer screeni ng Problem 11/12/2020 12:00:00 AM EDT eCW1 ([facility]) Z12.39 Examines own breasts Breast cancer screening Problem 11/12/2020 12:00:00 AM EDT eCW1 ([facility]) Z86.711 [id number] Hx pulmonary embolism Problem 09/12/2020 12: 00:00 AM EDT eCW1 ([facility]) N87.1 Cervical intraepithelial neoplasia grade 2 MARK II (cervical intraepithelial neoplasia II) Problem 12/31/2019 12:00:00 AM EDT eCW 1 ([facility]) Surgeries/Procedures Procedure Description Date Indications Data Source(s) ECG ROUTINE ECG W/LEAST 12 LDS W/I&R 12/29/2020 12:00: 00 AM EDT eCW1 ([facility]) RADEX SHOULDER COMPLETE MINIMUM 2 VIEWS 12/03/2020 12: 00:00 AM EDT [facility] ([facility] ) OFFICE OUTPATIENT VISIT 15 MINUTES 12/03/2020 12:00:00 AM EDT [facility] ([facility] ) OFFICE OUTPATIENT NEW 45 MINUTES 11/27/2020 12:00:00 A M EDT [facility] ([facility]) X-Ray Spine Lumbosacral Complete Inc Bending Views Min Of 6 10/13/2020 12:00:00 AM EDT [facility] ([facility]) X-Ray Hip Unilateral With Pelvis 2-3 Views 10/13/2020 12:00:00 AM EDT [facility] ([facility] ) OFFICE OUTPATIENT NEW 45 MINUTES 10/13/2020 12:00:00 A M EDT [facility] ([facility] ) URINE TEST 12/31/2019 12:00:00 AM EDT eCW1 ([facility]) Results ID Date Data Source [id number] 12/31/2020 10:55:00 AM EDT [facility] Name Value Range Interpretation Code Description Data Stephanie rce(s) Supporting Document(s) SARS-CoV-2 (COVID-19) RNA [Presence] in Respiratory specimen by GERALDO with probe detection Not Detected [facility] This lab was ordered by [facility] and reported by [employer] ID Date Data Source LIPASE 12/29/2020 12:00:00 AM EDT eCW1 ([facility]) Name Value Range Interpretation Code Description Data Stephanie rce(s) Supporting Document(s) 132 73-393 LIPASE eCW1 ([facility]) ID Date Data Source Comprehensive Metabolic Profile (CMP) 12/29/2020 12:00:00 AM EDT eCW1 ([facility]) Name Value Range Interpretation Code Description Data Stephanie rce(s) Supporting Document(s) 85 70-100 GLUCOSE, FASTING eCW1 ([facility]) 10 7-18 BLOOD UREA NITROGEN eCW1 ([facility]) 4.8 3.5-5.1 POTASSIUM SERUM eCW1 ([facility]) 0.80 0.55-1.30 CREATININE FOR GFR eCW1 ([facility]) 143 136-145 SODIUM LEVEL eCW1 ([facility]) > 60.0 >51 GLOMERULAR FILTRATION RATE eCW 1 ([facility]) 29 21-32 CARBON DIOXIDE LEVEL eCW1 ([facility]) 9.5 8.5-10.1 CALCIUM LEVEL eCW1 ([facility]) 20 7-37 AST/SGOT eCW1 ([facility]) 110 98-107 CHLORIDE LEVEL eCW1 ([facility]) 78 45-117 ALKALINE PHOSPHATASE eCW1 ([facility]) 8.0 6.4-8.2 TOTAL PROTEIN eCW1 ([facility]) 35 12-78 ALT/SGPT eCW1 ([facility]) 0.6 0.2-1.0 BILIRUBIN,TOTAL eCW1 ([facility]) 3.8 3.2-5.2 ALBUMIN eCW1 ([facility]) 0.9 1.2-2.2 ALBUMIN/GLOBULIN RATIO eCW1 ([facility]) ID Date Data Source CBC with Differential 12/29/2020 12:00:00 AM EDT eCW1 ([facility]) Name Value Range Interpretation Code Description Data Stephanie rce(s) Supporting Document(s) 10.1 4.0-10.0 WHITE BLOOD COUNT eCW1 ([facility]) 4.44 4.00-5.40 RED BLOOD COUNT eCW1 ([facility]) 30.4 27.0-33.0 MEAN CORPUSCULAR HEMOGLOB IN eCW1 ([facility]) 41.2 36.0-47.0 HEMATOCRIT eCW1 ([facility]) 13.5 12.0-15.5 HEMOGLOBIN eCW1 ([facility]) 92.8 80.0-96.0 MEAN CORPUSCULAR VOLUME e CW1 ([facility]) 32.8 32.0-36.5 MEAN CORPUSCULAR HGB CONC eCW1 ([facility]) 251 150-450 PLATELET COUNT, AUTOMATED eCW1 ([facility]) 12.4 11.5-14.5 RED CELL DISTRIBUTION WID TH eCW1 ([facility]) 60.0 36.0-66.0 NEUTROPHILS % eCW1 ([facility]) 1.0 0.0-3.0 EOS % eCW1 ([facility]) 30.7 24.0-44.0 LYMPH % eCW1 ([facility]) 7.4 2.0-8.0 MONO % eCW1 ([facility]) 0.6 0.0-1.0 BASO % eCW1 ([facility]) 3.1 1.5-5.0 LYMPH # eCW1 ([facility]) 0.8 0.0-0.8 MONO # eCW1 ([facility]) 6.1 1.5-8.5 NEUTROPHILS # eCW1 ([facility]) 0.1 0.0-0.5 EOS # eCW1 ([facility]) 0.1 0.0-0.2 BASO # eCW1 ([facility]) ID Date Data Source NT-PRO BNP 12/29/2020 12:00:00 AM EDT eCW1 ([facility]) Name Value Range Interpretation Code Description Data Stephanie rce(s) Supporting Document(s) 54 <125 NT-PRO BNP eCW1 ([facility]) ID Date Data Source [facility] GALLBLADDER U/S 11/17/2020 12:00:00 AM EDT eCW1 ([facility]) Name Value Range Interpretation Code Description Data Stephanie rce(s) Supporting Document(s) [facility] GALLBLADDER U/S eCW1 ([facility]) ID Date Data Source FREE T4 & TSH PANEL 11/12/2020 12:00:00 AM EDT eCW1 ([facility]) Name Value Range Interpretation Code Description Data Stephanie rce(s) Supporting Document(s) 2.040 0.358-3.740 THYROID STIMULATING HORM ONE eCW1 ([facility]) 1.09 0.76-1.46 FREE T4 eCW1 ([facility]) ID Date Data Source ERYTHROCYTE SEDIMENTATION RATE 11/12/2020 12:00:00 AM EDT eC W1 ([facility]) Name Value Range Interpretation Code Description Data Stephanie rce(s) Supporting Document(s) 25 0-30 ERYTHROCYTE SEDIMENTATION RATE eCW1 ([facility]) ID Date Data Source C REACTIVE PROTEIN QUANTITATIV (At [facility]) 11/12/2020 12:00 :00 AM EDT eCW1 ([facility]) Name Value Range Interpretation Code Description Data Stephanie rce(s) Supporting Document(s) 0.33 0.00-0.30 C REACTIVE PROTEIN QUANTI TATIV eCW1 ([facility]) ID Date Data Source [id number] 11/12/2020 12:00:00 AM EDT eCW1 ([facility]) Name Value Range Interpretation Code Description Data Stephanie rce(s) Supporting Document(s) Hemoglobin A1c/Hemoglobin.total in Blood 5.5 HEMOGLOBIN A1c eCW1 ([facility]) ID Date Data Source [id number] 11/03/2020 05:23:00 PM EDT [facility] Patient: SHARON ROSALES Rayshawn Andres t - [facility].VisitID: [id number] [place] [address] [phone], FRegistration Date/Time: 11/03/2020 06:47 Weight:86.1 kg (S). Height/Length:64 inches (S). BMI:32.6 PAST HISTORYProblems:Psoriasis [Chronic].Hypothyroidism [Chronic].Jasmin Filter Chest [Chronic].Migraine Headache [Chronic].Osteoporosis [Chronic].Pulmonary Embolism [Resolved].Biliary Colic [RuleOut].Abdominal Pain [RuleOut]. Additional Surgeries:Back Surgery [2007].Lumpectomy of breast. (Right)Previous Abdominal Nay heather.Tonsillectomy.Tubal Ligation. Medications:Levothyroxine Sodium Oral (Tablet 88 mcg) 1 tablet, daily every AM, last dose yesterday.Taltz Subcutaneous, monthly, last dose October.Zomig Oral (Tablet 5 mg) 1/2 tablet, daily as needed, last dose 2 days ago. Allergies:No Known Drug Allergy. FAMILY HISTORYNo significant family medical history. (Electronically signed by Lawrence Rodriguez P.A. 11/03/2020 16:58) Name Value Range Interpretation Code Description Data Stephanie rce(s) Supporting Document(s) ID Date Data Source [id number] 11/03/2020 08:30:00 AM EDT [facility] l DATE OF EXAMINATION: 11/03/2020 7:30 EDT ABD/PEL NO CONTRAST HISTORY: Pain. Right upper quadrant pain TECHNIQUE: This CT exam was performed using the following dose reduction techniques:automated exposure control, adjustment of mA and/or kV according to thepatient's size, and use of iterative reconstruction technique. Standard contiguous axial spiral imaging was obtained from the dome of thediaphragms through the symphysis pubis without oral contrast and withoutintravenous contrast administration and with coronal reformatting. FINDINGS: Lower thorax: Unremarkable ABDOMEN: Liver: UnremarkableGallbladder and bile ducts: UnremarkablePancreas: UnremarkableSpleen: UnremarkableAdrenals: UnremarkableKidneys and ureters: Unremarkable unenhancedStomach and bowel: Moderately dilated loops of distal jejunum without atransition point. This is nonspecific partial small bowel obstruction or ileuscannot be in this manner. Pleural gastroenteritis is less likely considerationAppendix: No appendicitis PELVIS: Bladder: Nondistended and unopacified, grossly unremarkableReproductive: Unremarkable No free air IMPRESSION: Mild nonspecific dilation of small bowel loops in the pelvic cavity region.Partial small bowel obstruction or localized ileus can appear in this manner. Electronically signed in [id number] by: Mark Rodríguez M.D. 11/03/2020 8:24 EDT Name Value Range Interpretation Code Description Data Stephanie rce(s) Supporting Document(s) ID Date Data Source [id number] 11/09/2020 09:25:00 AM EDT [facility] jose Name Value Range Interpretation Code Description Data Stephanie rce(s) Supporting Document(s) [facility] ID Date Data Source [id number] 11/09/2020 09:25:00 AM EDT [facility] Name Value Range Interpretation Code Description Data Stephanie rce(s) Supporting Document(s) [facility] ID Date Data Source [id number] [id number] 11/03/2020 07:59:00 AM EDT [facility] Name Value Range Interpretation Code Description Data Stephanie rce(s) Supporting Document(s) URINE RBC 0-2 /hpf 0-3 [facility] URINE WBC 0-2 /hpf 0-5 H [facility] URINE EPITHELIAL CELLS 4+ /hpf 0 [facility] ospital URINE BACTERIA TRACE NONE SEEN [facility] ID Date Data Source [id number] [id number] 11/03/2020 07:58:00 AM EDT [facility] ital Name Value Range Interpretation Code Description Data Stephanie rce(s) Supporting Document(s) URINE COLOR. [facility] URINE APPEARANCE CLEAR [facility] l URINE GLUCOSE (UA) NEGATIVE mg/dL NEGATIVE [facility] URINE BILIRUBIN NEGATIVE NEGATIVE [facility] URINE KETONE NEGATIVE mg/dL [facility]IVE [facility] SPECIFIC GRAVITY,URINE 1.020 1.005-1.030 [facility] URINE BLOOD TRACE NEGATIVE [facility] PH,URINE 8.5 5.0-9.0 [facility] URINE PROTEIN NEGATIVE mg/dL NEGATIVE [facility] UR[facility] UROBILINOGEN NORMAL(0.2-1) mg/dL 0-[address] [facility] URINE NITRATE NEGATIVE NEGATIVE [facility] URINE LEUKOCYTE ESTERASE NEGATIVE NEGATIVE [facility] ID Date Data Source [id number] 11/03/2020 08:07:00 AM [facility]T [facility] Name Value Range Interpretation Code Description Data Stephanie rce(s) Supporting Document(s) TSH 2.244 uIU/mL 0.358-3.74 [facility] ID Date Data Source [id number] 11/03/2020 07:56:00 AM EDT [facility] l Name Value Range Interpretation Code Description Data Stephanie rce(s) Supporting Document(s) LIPASE 147 U/L 73-393 [facility] ID Date Data Source [id number] 11/03/2020 07:56:00 AM EDT [facility] l Name Value Range Interpretation Code Description Data Stephanie rce(s) Supporting Document(s) MAGNESIUM 2.0 mg/dL 1.8-2.4 [facility] ID Date Data Source [id number] 11/03/2020 07:56:00 AM EDT [facility] l Name Value Range Interpretation Code Description Data Stephanie rce(s) Supporting Document(s) GLUCOSE 119 mg/dL 74-106 H [facility] BLOOD UREA NITROGEN 14 mg/dL 7-18 [facility] CREATININE 0.84 mg/dL 0.6-1.0 [facility] SODIUM 140 mmol/L 136-145 [facility] POTASSIUM 3.8 mmol/L 3.5-5.1 [facility] CHLORIDE 103 mmol/L 98-107 [facility] CO2 26 mmol/L 21-32 [facility] CALCIUM 9.5 mg/dL 8.5-10.1 [facility] ANION GAP 11.0 mmol/L 5-12 [facility] GLOMERULAR FILTRATION RATE 70 mL/min [facility] GFR IS CALCULATED IN mL/min/1.73m2 MYLENE L FUNCTION: >90MILDLY DECREASED: 60-89MILDY TO MODERATELY DECREASED: 45-59 MODERATELY TO SEVERELY DECREASED: 30-44SEVERELY DECREASED: 15-29RENAL FAILURE: <15 AST 22 U/L 15-37 [facility] ALT 49 U/L 12-78 [facility] ALKALINE PHOSPHATASE 83 U/L 46-116 [facility] pital TOTAL BILIRUBIN 0.7 mg/dL 0.2-1.0 [facility] TOTAL PROTEIN 8.3 g/dl 6.4-8.2 H [facility] ALBUMIN 3.8 gm/dL 3.4-5.0 [facility] ID Date Data Source [id number] 11/03/2020 07:49:00 AM EDT [facility] l Name Value Range Interpretation Code Description Data Stephanie rce(s) Supporting Document(s) PARTIAL THROMBOPLASTIN TIME 23.5 SECONDS 21.2-27.3 [facility] ID Date Data Source [id number] 11/03/2020 07:49:00 AM EDT [facility] l Name Value Range Interpretation Code Description Data Stephanie rce(s) Supporting Document(s) PROTHROMBIN TIME (PATIENT) 9.4 SECONDS 9.1-11.6 [facility] INR 0.90 0.87-1.06 [facility] ID Date Data Source [id number] 11/03/2020 07:44:00 AM EDT [facility] l Name Value Range Interpretation Code Description Data Stephanie rce(s) Supporting Document(s) WHITE BLOOD COUNT 9.4 K/mm3 4.0-10.0 [facility] RED BLOOD COUNT 4.56 M/mm3 4.00-5.50 [facility] HEMOGLOBIN 13.8 gm/dL 12.0-16.0 [facility] HEMATOCRIT 39.8 % 36.0-48.8 [facility] MEAN CELL VOLUME 87.3 fl 80-96 [facility] MEAN CORPUSCULAR HEMOGLOBIN 30.3 pg 27.0-31.0 [facility] MEAN CORPUSCULAR HGB CONC 34.7 g/dl 32.0-36.0 [facility] RED CELL DISTRIBUTION WIDTH 12.3 % 10.0-14.5 [facility] PLATELET COUNT 266 K/mm3 172-450 [facility] MEAN PLATELET VOLUME 10.7 fl 9.0-13.0 [facility] pital GRAN % 65.8 % 50-80.0 [facility] IG% 0.1 % 0.0-0.2 [facility] LYMPH % 26.5 % 25.0-50.0 [facility] MONO % 6.1 % 2.0-10.0 [facility] EOS % 1.0 % 0-5.0 [facility] BASO % 0.5 % 0.0-2.0 [facility] GRAN # 6.2 K/mm3 2.0-8.00 [facility] IG# 0.0 K/mm3 0.0-0.2 [facility] LYMPH # 2.5 K/mm3 1.0-5.0 [facility] MONO # 0.6 K/mm3 0.10-1.20 [facility] EOS # 0.1 K/mm3 0.0-0.5 [facility] BASO # 0.1 K/mm3 0.0-0.2 [facility] ID Date Data Source H PYLORI SERUM QUANT IgG ALLEN 03/21/2020 12:00:00 AM EST eCW1 ([facility]) Name Value Range Interpretation Code Description Data Stephanie rce(s) Supporting Document(s) 0.32 0.00-0.79 H PYLORI SERUM QUANT IgG ALLEN eCW1 ([facility]) ID Date Data Source [id number] 03/20/2020 06:10:00 AM EST [facility] Patient: SHARON ROSALES Mckenna t - [facility].VisitID: [id number] [place] [address] [phone], FRegistration Date/Time: 03/13/2020 10:43 Weight:86.1 kg (S). Height/Length:64 inches (S). BMI:32.6 PAST HISTORYMedications:Taltz Subcutaneous, monthly, last dose February.Zomig Oral (Tablet 5 mg) 1/2 tablet, daily as needed, last dose 2 weeks ago.Fosamax Oral (Tablet 70 mg) 1 tablet, once a week, last dose On tuesday this past week.Levothyroxine Sodium Oral (Tablet 88 mcg) 1 tablet, daily every AM, last dose yesterday. Allergies:No Known Drug Allergy. FAMILY HISTORY(family h/o gallbladder diseasse). (Electronically signed by Syed Alicea DO 03/13/2020 13:12) Name Value Range Interpretation Code Description Data Stephanie rce(s) Supporting Document(s) ID Date Data Source [id number] 03/13/2020 12:47:00 PM EST [facility] DATE OF EXAMINATION: 03/13/2020 11:10 EST ABDOMEN LIMITED COMPARED TO: No priors HISTORY: Right upper quadrant pain Real-time ultrasound imaging was performed utilizing B-mode/murillo scale and colorDoppler imaging where applicable. Minimal fatty infiltration of liver is noted without hepatomegaly. There is nointra or extrahepatic biliary dilation. The gallbladder appears normal,revealing no signs of gallstones or gallbladder wall thickening. The common bileduct measures 3 mm. The right kidney measures 11.3 cm. There is nohydronephrosis. IMPRESSION: Minimal fatty infiltration of liver without hepatomegaly Electronically signed in [id number] by: Mark Rodríguez M.D. 03/13/2020 12:42 EST Name Value Range Interpretation Code Description Data Stephanie rce(s) Supporting Document(s) ID Date Data Source [id number] 03/13/2020 11:44:00 AM EST [facility] TSYSORDER [id number] Name Value Range Interpretation Code Description Data Stephanie rce(s) Supporting Document(s) URINE RBC 0-2 /hpf 0-3 [facility] URINE WBC 0-2 /hpf 0-5 H [facility] URINE EPITHELIAL CELLS 2+ /hpf 0 [facility]ital URINE BACTERIA 2+ NONE SEEN [facility] ID Date Data Source [id number] 03/13/2020 11:44:00 AM [facility] ital TSYSORDER [id number] Name Value Range Interpretation Code Description Data Stephanie rce(s) Supporting Document(s) URINE COLOR. [facility] URINE APPEARANCE CLEAR [facility] l URINE GLUCOSE (UA) NEGATIVE mg/dL NEGATIVE [facility] URINE BILIRUBIN NEGATIVE NEGATIVE [facility] URINE KETONE NEGATIVE mg/dL NEGATIVE [facility] SPECIFIC GRAVITY,URINE 1.025 1.001-1.035 [facility] URINE BLOOD TRACE NEGATIVE H [facility] PH,URINE 6.5 5.0-9.0 [facility] URINE PROTEIN NEGATIVE mg/dL NEGATIVE [facility] jose URINE UROBILINOGEN NORMAL(0.2-1) mg/dL 0-[address] [facility] URINE NITRATE NEGATIVE NEGATIVE [facility] URINE LEUKOCYTE ESTERASE NEGATIVE NEGATIVE [facility] ID Date Data Source [id number] 03/13/2020 12:17:00 PM EST [facility] l TSYSORDER [id number] Name Value Range Interpretation Code Description Data Stephanie rce(s) Supporting Document(s) LACTIC ACID 1.0 mmol/L 0.4-2.0 [facility] ID Date Data Source [id number] 03/13/2020 12:15:00 PM EST [facility] TSYSORDER [id number] Name Value Range Interpretation Code Description Data Stephanie rce(s) Supporting Document(s) LIPASE 82 U/L 73-393 [facility] ID Date Data Source [id number] 03/13/2020 12:15:00 PM EST [facility] TSYSORDER [id number] Name Value Range Interpretation Code Description Data Stephanie rce(s) Supporting Document(s) GLUCOSE 106 mg/dL 74-106 [facility] BLOOD UREA NITROGEN 12 mg/dL 7-18 [facility] ital CREATININE 0.80 mg/dL 0.6-1.0 [facility] SODIUM 139 mmol/L 136-145 [facility] POTASSIUM 4.2 mmol/L 3.5-5.1 [facility] CHLORIDE 103 mmol/L 98-107 [facility] CO2 25 mmol/L 21-32 [facility] CALCIUM 9.2 mg/dL 8.5-10.1 [facility] ANION GAP 11.0 mmol/L 5-12 [facility] GLOMERULAR FILTRATION RATE 74 mL/min [facility] GFR IS CALCULATED IN mL/min/1.73m2 MYLENE L FUNCTION: >90MILDLY DECREASED: 60-89MILDY TO MODERATELY DECREASED: 45-59 MODERATELY TO SEVERELY DECREASED: 30-44SEVERELY DECREASED: 15-29RENAL FAILURE: <15 AST 32 U/L 15-37 [facility] ALT 45 U/L 12-78 [facility] ALKALINE PHOSPHATASE 71 U/L 46-116 [facility] pital TOTAL BILIRUBIN 0.9 mg/dL 0.2-1.0 [facility] TOTAL PROTEIN 8.5 g/dl 6.4-8.2 H [facility] ALBUMIN 3.9 gm/dL 3.4-5.0 [facility] ID Date Data Source [id number] 03/13/2020 11:15:[address] [facility] TSYSORDER [id number] Name Value Range Interpretation Code Description Data Stephanie rce(s) Supporting Document(s) WHITE BLOOD COUNT 12.2 K/mm3 4.0-10.0 [facility] RED BLOOD COUNT 4.45 M/mm3 4.00-5.50 [facility] l HEMOGLOBIN 13.5 gm/dL 12.0-16.0 [facility] HEMATOCRIT 39.0 % 36.0-48.8 [facility] MEAN CELL VOLUME 87.6 fl 80-96 [facility] l MEAN CORPUSCULAR HEMOGLOBIN 30.3 pg 27.0-31.0 [facility] MEAN CORPUSCULAR HGB CONC 34.6 g/dl 32.0-36.0 [facility] RED CELL DISTRIBUTION WIDTH 12.2 % 10.0-14.5 [facility] PLATELET COUNT 269 K/mm3 172-450 [facility] MEAN PLATELET VOLUME 10.2 fl 9.0-13.0 [facility] pital GRAN % 75.1 % 50-80.0 [facility] IG% 0.2 % 0.0-0.2 [facility] LYMPH % 18.5 % 25.0-50.0 L [facility] MONO % 5.9 % 2.0-10.0 [facility] EOS % 0.1 % 0-5.0 [facility] BASO % 0.2 % 0.0-2.0 [facility] GRAN # 9.2 K/mm3 2.0-8.00 H [facility] IG# 0.0 K/mm3 0.0-0.2 [facility] LYMPH # 2.3 K/mm3 1.0-5.0 [facility] MONO # 0.7 K/mm3 0.10-1.20 [facility] EOS # 0.0 K/mm3 0.0-0.5 [facility] BASO # 0.0 K/mm3 0.0-0.2 [facility] ID Date Data Source Pathology Request For Service 12/31/2019 12:00:00 AM EDT eCW 1 ([facility]) Name Value Range Interpretation Code Description Data Stephanie rce(s) Supporting Document(s) GENITOURINARY eCW1 ([facility]) Procedure Social History No Information Vital Signs ID Date Data Source [id number] Name Value Range Interpretation Code Description Data Source(s) Body weight 189.4 [lb_av] 189.4 [lb_av] eCW1 ([facility]) Body weight 85.91 kg 85.91 kg W1 ([facility]) Body height 64 [in_i] 64 [in_i] eCW1 ([facility]) Body mass index (BMI) [Ratio] 32.51 kg/m2 32.51 kg/m2 [facility] ([facility]) Heart rate 83 /min 83 /min W1 ([facility]) Respiratory rate 20 /min 20 /min eCW1 ([facility]) Body temperature 97.8 [degF] 97.8 [degF] eCW1 ( [facility]) Systolic blood pressure 120 mm[Hg] 120 mm[Hg] e CW1 ([facility]) Diastolic blood pressure 62 mm[Hg] 62 mm[Hg] eCW1 ([facility]) Body temperature 97.3 [degF] 97.3 [degF] MEDENT ([facility] ) Body height 63.5 [in_i] 63.5 [in_i] MEDENT ([facility] ) 5'3.50" Body weight 188.00 [lb_av] 188.00 [lb_av] MEDEN T ([facility]) Body mass index (BMI) [Ratio] 32.8 kg/m2 32.8 k g/m2 MEDENT ([facility]) Diastolic blood pressure 91 mm[Hg] 91 mm[Hg] MEDENT ([facility], ) Body temperature 98.4 [degF] 98.4 [degF] MEDENT ([facility], ) Body height 64 [in_i] 64 [in_i] MEDENT ([facility], ) 5'4" Body weight 187.00 [lb_av] 187.00 [lb_av] MEDEN T ([facility], ) Body mass index (BMI) [Ratio] 32.1 kg/m2 32.1 k g/m2 MEDENT ([facility], ) [place] body weight 120 [lb_av] 120 [lb_av] MEDEN T ([facility], ) Body weight 84.823 kg 84.823 kg MEDENT ([facility], ) Body surface area Derived from formula 1.90 m2 1.90 [facility] Systolic blood pressure 129 mm[Hg] 129 mm[Hg] M EDENT ([facility], ) Body weight 189.4 [lb_av] 189.4 [lb_av] eCW1 ([facility]) Body weight 85.91 kg 85.91 kg eCW1 ([facility]) Body height 64 [in_i] 64 [in_i] eCW1 ([facility]) Body mass index (BMI) [Ratio] 32.51 kg/m2 32.51 kg/m2 eCW1 ([facility]) Heart rate 83 /min 83 /min eCW1 ([facility]) Respiratory rate 20 /min 20 /min eCW1 ([facility]) Body temperature 98.5 [degF] 98.5 [degF] eCW1 ( [facility]) Systolic blood pressure 124 mm[Hg] 124 mm[Hg] e CW1 ([facility]) Diastolic blood pressure 82 mm[Hg] 82 mm[Hg] eCW1 ([facility]) Body weight 189.4 [lb_av] 189.4 [lb_av] eCW1 ([facility]) Body weight 85.91 kg 85.91 kg eCW1 ([facility]) Body height 64 [in_i] 64 [in_i] eCW1 ([facility]) Body mass index (BMI) [Ratio] 32.51 kg/m2 32.51 kg/m2 eCW1 ([facility]) Heart rate 83 /min 83 /min eCW1 ([facility]) Respiratory rate 20 /min 20 /min eCW1 ([facility]) Body temperature 98.5 [degF] 98.5 [degF] eCW1 ( [facility]) Systolic blood pressure 124 mm[Hg] 124 mm[Hg] e CW1 ([facility]) Diastolic blood pressure 82 mm[Hg] 82 mm[Hg] eCW1 ([facility]) Body temperature 97.1 [degF] 97.1 [degF] MEDENT ([facility]) Body height 64 [in_i] 64 [in_i] MEDENT ([facility]) 5'4" Body weight 189.50 [lb_av] 189.50 [lb_av] MEDEN T ([facility]) Body mass index (BMI) [Ratio] 32.5 kg/m2 32.5 k g/m2 MEDENT ([facility]) Body weight 191.4 [lb_av] 191.4 [lb_av] eCW1 ([facility]) Body height 64 [in_i] 64 [in_i] eCW1 ([facility]) Body mass index (BMI) [Ratio] 32.85 kg/m2 32.85 kg/m2 eCW1 ([facility]) Heart rate 84 /min 84 /min eCW1 ([facility]) Respiratory rate 18 /min 18 /min eCW1 ([facility]) Body temperature 97.9 [degF] 97.9 [degF] eCW1 ( [facility]) Systolic blood pressure 124 mm[Hg] 124 mm[Hg] e CW1 ([facility]) Diastolic blood pressure 72 mm[Hg] 72 mm[Hg] eCW1 ([facility]) Body weight 194 [lb_av] 194 [lb_av] eCW1 ([facility]) Body height 64 [in_i] 64 [in_i] eCW1 ([facility]) Body mass index (BMI) [Ratio] 33.30 kg/m2 33.30 kg/m2 eCW1 ([facility]) Systolic blood pressure 120 mm[Hg] 120 mm[Hg] e CW1 ([facility]) Diastolic blood pressure 74 mm[Hg] 74 mm[Hg] eCW1 ([facility]) Body weight 195.4 [lb_av] 195.4 [lb_av] eCW1 ([facility]) Body height 64 [in_i] 64 [in_i] eCW1 ([facility]) Body mass index (BMI) [Ratio] 33.54 kg/m2 33.54 kg/m2 eCW1 ([facility]) Heart rate 90 /min 90 /min eCW1 ([facility]) Respiratory rate 18 /min 18 /min eCW1 ([facility]) Body temperature 97.5 [degF] 97.5 [degF] eCW1 ( [facility]) Systolic blood pressure 118 mm[Hg] 118 mm[Hg] e CW1 ([facility]) Diastolic blood pressure 70 mm[Hg] 70 mm[Hg] eCW1 ([facility]) Body weight 198 [lb_av] 198 [lb_av] eCW1 ([facility]) Body height 64 [in_i] 64 [in_i] eCW1 ([facility]) Body mass index (BMI) [Ratio] 33.98 kg/m2 33.98 kg/m2 eCW1 ([facility]) Systolic blood pressure 126 mm[Hg] 126 mm[Hg] e CW1 ([facility]) Diastolic blood pressure 72 mm[Hg] 72 mm[Hg] eCW1 ([facility]) Patient Treatment Plan of Care Planned Activity Planned Date Details Description Data Source (s) pantoprazole 40 MG Delayed Release Oral Tablet 03/19/2020 12:00:00 AM EST eCW1 ([facility]) pantoprazole 40 MG Delayed Release Oral Tablet 03/19/2020 12:00:00 AM EST eCW1 ([facility]) pantoprazole 40 MG Delayed Release Oral Tablet 03/19/2020 12:00:00 AM EST eCW1 ([facility]) pantoprazole 40 MG Delayed Release Oral Tablet 03/19/2020 12:00:00 AM EST eCW1 ([facility]) pantoprazole 40 MG Delayed Release Oral Tablet 03/19/2020 12:00:00 AM EST eCW1 ([facility])
[2021-01-05] MEDS ORDERED: SUGAMMADEX SODIUM 500 MG/5 ML VIAL (BRIDION) As Ordered ONE (12:11)
[2021-01-05] MEDS ORDERED: dexameTHASONE 4 MG/ML 1ML VIAL (J1100 PER 1MG) As Ordered ONE (12:11)
[2021-01-05] MEDS ORDERED: LIDOCAINE 2% 100MG/5ML SDV (FOR ANES.) As Ordered ONE (12:11)
[2021-01-05] MEDS ORDERED: MIDAZOLAM INJ 2MG/2ML VIAL (J2250 PER 1MG) As Ordered ONE (12:11)
[2021-01-05] MEDS ORDERED: propofoL 200 MG/20 ML VIAL As Ordered ONE (12:11)
[2021-01-05] MEDS ORDERED: ROCURONIUM BROMIDE 50 MG/5 ML VIAL As Ordered ONE (12:11)
[2021-01-05] MEDS ORDERED: ONDANSETRON 4MG/2ML VIAL As Ordered ONE (12:11)
[2021-01-05] MEDS ORDERED: KETOROLAC 60MG 2ML VIAL As Ordered ONE (12:11)
[2021-01-05] MEDS ORDERED: fentaNYL 100 MCG/2 ML INJECTION (J3010) As Ordered ONE ×2 (12:11→14:49)
[2021-01-05] MEDS ORDERED: LIDOCAINE 1% SDV 30ML VIAL As Ordered ONE (13:09)
[2021-01-05] MEDS ORDERED: BUPIVACAINE HCL 0.25% 30ML VIAL As Ordered ONE (13:09)
[2021-01-05] MEDS ORDERED: ACETAMINOPHEN 1000MG 100ML IV BTL (OFIRMEV) (J0131 PER 10MG) As Ordered ONE (13:45)
[2021-01-05] MEDS ORDERED: fentaNYL 100 MCG/2 ML INJECTION (J3010) IV PRN (15:15)
[2021-01-05] MEDS ORDERED: ONDANSETRON 4MG/2ML VIAL IV PRN (15:15)
[2021-01-05] MEDS ORDERED: METOCLOPRAMIDE INJ 10MG/2ML VIAL (J2765 PER 1) IV PRN (15:15)
[2021-01-05] MEDS ORDERED: LR 1,000 ML IV SCH (15:15)
[2021-01-05] MEDS: oxyCODONE 5MG TAB PO PRN ×2 (15:29→16:07)
[2021-01-05 16:51] VITALS: BP 122/69
--- NOTE | 2021-01-06 04:44 | ROOPDOC ---
[facility] Report Of Operation Report of Operation DATE OF PROCEDURE: 01/05/21 PREPROCEDURE DIAGNOSES: Right upper quadrant pain, gallbladder polyps. POSTPROCEDURE DIAGNOSES: Cholelithiasis, obstructed cystic duct. PROCEDURE PERFORMED: Robotic assisted laparoscopic cholecystectomy with ICG for biliary tree identification. SURGEON: Damien Pino MD DAIRY CHEMIST: Linda Burrell, TORO Ms. Burrell assisted me with placement of ports, instrument exchange and management of the robotic arms, extraction of the gallbladder and closure of ports ANESTHESIA: General endotracheal anesthesia. ESTIMATED BLOOD LOSS: Approximately 10 mL. COMPLICATIONS: None. REMARKS: Patient is a 55-year-old female with intermittent right upper quadrant pain that is usually postprandial consistent with biliary colic. She was worked up at her primary care provider's office including ultrasound showing gallbladder polyp versus a small stone at the neck of the gallbladder. She is here for cholecystectomy. FINDINGS: Contracted gallbladder, mild thick wall, no acute inflammation, pericholecystic edema. Gallbladder does not illuminate on firefly mode. I was able to trace of the common hepatic, common bile duct and beginnings of the cystic duct on firefly mode with notable cut off at the mid cystic duct consistent with obstruction at that area. SPECIMENS REMOVED: Gallbladder DESCRIPTION OF PROCEDURE: . Patient was given a dose Unasyn 3 g IV preoperatively. 2.5 mg of ICG was given IV in the preop area. She had a significant history of developing DVT perioperatively remotely thus prior surgery thus she was given 5000 units of heparin subcutaneously for chemical DVT prophylaxis. She was brought to the operating room, laid supine on the table, compression boots placed for DVT prophylaxis. General endotracheal anesthesia started. Her abdomen then prepped and draped in usual sterile fashion. Surgical timeout was performed prior to confirm right procedure, right patient identification and other necessary information prior to starting surgery. Entry into the abdomen done through an incision below and slightly to the left of the umbilical cleft. A Veress needle was inserted with a controlled fashion. CO2 insufflation started to pressure 15 mmHg. Using the same incision an 8 mm robotic trochar was placed under direct vision laparoscope. The area underneath the insertion site was inspected and no injury found. He was then placed on a 10 reverse Trendelenburg, tilted slightly towards the left side. Under direct vision I placed three more 8 mm trochars along a row level to the camera port site. A transversus abdominis plane block was then performed bilaterally using the lidocaine/marcaine mixture under laparoscopic guidance. 20 mLs of the mixture placed on each side. The da Suresh robot tower was then maneuvered in place and the trochars docked to the robot. After positioning the instruments inside of the abdomen, and scrubbed in to control of the camera and robotic instruments at the surgeon's console while my medical assistant prn remains on the field. Operative findings: Liver appears smooth. Gallbladder is contracted. Mildly thick-walled. No signs of acute inflammation. On firefly, the liver lights up. The gallbladder does not light up. The course of the common hepatic duct, common bile duct is visible with firefly. The proximal cystic duct appears visible but there is an abrupt cut off signifying persistent cystic duct obstruction. The gallbladder is retracted superiorly to expose the neck of the gallbladder and hepatocystic triangle. Dissection was done with intermittent use of near infrared light and white light for identification of the relevant biliary ductal structures. The peritoneal covering at the neck of the gallbladder was opened up medially and laterally. The infundibulum is retracted laterally 1 approach to the hepatocystic triangle. The lymph node is identified there is moderate amount of fatty deposition at the hepatocystic triangle which was carefully dissected to expose the duct and artery. The course of the cystic artery was identified and this was circumferentially dissected. By switching between firef ly mode and white light and dissected circumferentially the course of the infundibulum of the gallbladder as well as the cystic duct. The cystic artery and then the cystic duct was circumferentially dissected. The cystic plate at the lower body and neck of the gallbladder was cleared. Dissection performed until there is a critical view of safety achieved with only the cystic duct and artery as the only structures approaching the neck of the gallbladder and clearance of the lower body of the gallbladder from the cystic plate of the liver. (helped with illumination of the duct with firefly mode). I noted that the proximal cystic duct illuminates on firefly but there is a cut off signifying there is a persistent obstruction so I proceeded dissecting more p roximally at the cystic duct and there is a stone lodged at the proximal third of the cystic duct. I dissected below this area. At this point the cystic artery was clipped twice and divided. The cystic duct was clipped twice on the down side and once the gallbladder side and this was divided in between the clips. Presence of the stone on the cystic duct confirmed. On firefly mode there was no bile leakage and I could see. The rest of the gallbladder dissected from the liver bed and detached. The gallbladder/liver bed is examined to ensure adequate hemostasis and again switching between the white light and firefly mode look for evidence for leakage and none was found. The gallbladder was extracted through the right most port site inside an Endo Catch bag with minimal enlargement of the tract. The fascia was closed with a running suture of 2 OV lock. The abdomen was then deflated all ports removed. The skin incisions were closed with 4-0 Monocryl subcutaneous thickening fashion. The drain was secured to the skin with 2-0 silk. Patient is stable throughout the procedure. Dermabond was used for postoperative dressing. He was promptly awakened, extubated and brought to recovery room in stable condition. DAMIEN PINO MD Jan 06, 2021 04:44
== END 2021-01-05 17:01 | disposition home or self-care (01) ==
LOC: M SDC 10:56
PROVIDERS: ATTEND Surgery
DX: K80.81 Other cholelithiasis with obstruction (principal); E03.9 Hypothyroidism, unspecified; R94.31 Abnormal electrocardiogram [ECG] [EKG]; Z86.711 Personal history of pulmonary embolism; M54.2 Cervicalgia; M54.59 Other low back pain; Z79.899 Other long term (current) drug therapy
CPT/HCPCS: 47563; 88304; J0131; J1100; J1644; J1885; J2250; J2405; J3010; Q9968; S2900

== ENCOUNTER → 2021-03-09 | Outpatient (CLI) | payer OTHER ==
[~2021-03-09] MED LIST changes: -AMPICILLIN SOD/SULBACTAM SOD 3 GM in D5W MINI-BAG PLUS 100 ML IV ONE; -HEPARIN SOD (PORCINE) 5000UNITS/ML 1ML VIAL/SYRINGE SQ ONE; -INDOCYANINE GREEN 25MG VIAL (IC-GREEN) IV ONE; -LIDOCAINE 1% MDV 20ML VIAL SQ PRN; -LR 1,000 ML IV ONE
[2021-03-09 17:20] LABS: ALT/SGPT 43 U/L (12-78); BILIRUBIN,TOTAL 0.7 MG/DL (0.2-1.0); BLOOD UREA NITROGEN 12 MG/DL (7-18); CALCIUM LEVEL 9.5 MG/DL (8.5-10.1); CARBON DIOXIDE LEVEL 29 MEQ/L (21-32); CHLORIDE LEVEL 105 MEQ/L (98-107); CHOLESTEROL LEVEL 183 MG/DL (<200); CHOLESTEROL RISK RATIO 3.519 (<5); CREATININE FOR GFR 0.85 MG/DL (0.55-1.30); FREE T4 1.12 NG/DL (0.76-1.46); GLOMERULAR FILTRATION RATE > 60.0 (>51); GLUCOSE, FASTING 80 MG/DL (70-100); HDL CHOLESTEROL 52 MG/DL (>40); LDL CHOLESTEROL 94 MG/DL (<100); NON-HDL-C 131 MG/DL; POTASSIUM SERUM 4.4 MEQ/L (3.5-5.1); SODIUM LEVEL 139 MEQ/L (136-145); TOTAL PROTEIN 7.6 GM/DL (6.4-8.2); TRIGLYCERIDES LEVEL 183 MG/DL (<150)
[2021-03-09 18:05] LABS: HEMOGLOBIN A1c 5.3 %
[2021-03-09 18:07] LABS: TOTAL 25(OH) VITAMIN D 32.1 NG/ML (30.0-100.0)
== END ==
LOC: M WUC 14:45
PROVIDERS: ATTEND Family Medicine
DX: E03.9 Hypothyroidism, unspecified (principal); E53.8 Deficiency of other specified B group vitamins; R73.01 Impaired fasting glucose

== ENCOUNTER → 2021-07-27 | Outpatient (CLI) | payer OTHER ==
[2021-07-27 10:45] LABS: BASO % 0.3 % (0.0-1.0); EOS # 0.2 10^3/uL (0.0-0.5); EOS % 2.4 % (0.0-3.0); HEMOGLOBIN 13.2 g/dl (12.0-15.5); LYMPH # 2.3 10^3/uL (1.5-5.0); LYMPH % 30.2 % (24.0-44.0); MEAN CORPUSCULAR HEMOGLOBIN 30.5 pg (27.0-33.0); MEAN CORPUSCULAR HGB CONC 32.2 g/dl (32.0-36.5); MEAN CORPUSCULAR VOLUME 94.7 fl (80.0-96.0); MONO # 0.6 10^3/uL (0.0-0.8); MONO % 8.2 % (2.0-8.0); NEUTROPHILS # 4.4 10^3/uL (1.5-8.5); NEUTROPHILS % 58.5 % (36.0-66.0); PLATELET COUNT, AUTOMATED 263 10^3/uL (150-450); RED BLOOD COUNT 4.33 10^6/uL (4.00-5.40); WHITE BLOOD COUNT 7.6 10^3/uL (4.0-10.0)
[2021-07-27 11:08] LABS: HEMOGLOBIN A1c 5.3 %
[2021-07-27 11:36] LABS: ALBUMIN 3.7 GM/DL (3.2-5.2); ALT/SGPT 32 U/L (12-78); BILIRUBIN,TOTAL 0.6 MG/DL (0.2-1.0); BLOOD UREA NITROGEN 14 MG/DL (7-18); CALCIUM LEVEL 9.4 MG/DL (8.5-10.1); CARBON DIOXIDE LEVEL 27 MEQ/L (21-32); CHLORIDE LEVEL 110 MEQ/L (98-107); CREATININE FOR GFR 0.81 MG/DL (0.55-1.30); FERRITIN 60 NG/ML (8-252); FREE T4 1.12 NG/DL (0.76-1.46); GLOMERULAR FILTRATION RATE > 60.0 (>51); GLUCOSE, FASTING 95 MG/DL (70-100); POTASSIUM SERUM 4.7 MEQ/L (3.5-5.1); SODIUM LEVEL 144 MEQ/L (136-145); TOTAL PROTEIN 7.3 GM/DL (6.4-8.2)
[2021-07-27 12:21] LABS: VITAMIN B12 LEVEL 432 PG/ML (247-911)
== END ==
LOC: M WUC 08:09
PROVIDERS: ATTEND Family Medicine
DX: E03.9 Hypothyroidism, unspecified (principal); R73.01 Impaired fasting glucose; E53.8 Deficiency of other specified B group vitamins; L40.50 Arthropathic psoriasis, unspecified; Z86.711 Personal history of pulmonary embolism

== ENCOUNTER → 2021-09-27 | Outpatient (CLI) | payer OTHER ==
[~2021-09-27] MED LIST changes: +CYCL-707 PO; -LEVO100T5; +LEVO100T5 PO; -ZOLM5TAB14; +ZOLM5TAB14 PO
== END ==
LOC: M LABSMTC 09:37
PROVIDERS: ATTEND Anesthesiology
DX: Z01.812 Encounter for preprocedural laboratory examination (principal); Z11.52 Encounter for screening for COVID-19

== ENCOUNTER 2021-09-30 07:29 | Day surgery (SDC) | payer OTHER ==
[~2021-09-30] VITALS: Ht 162.6 cm; Wt 81.7 kg
[~2021-09-30 07:29] MED LIST changes: +LIDOCAINE 2% 100MG/5ML SDV (FOR ANES.) As Ordered ONE; +NS 1,000 ML IV ONE; +propofoL 200 MG/20 ML VIAL As Ordered ONE
[2021-09-30 09:20] VITALS: BP 125/77
== END 2021-09-30 09:28 | disposition home or self-care (01) ==
LOC: M OPP 07:29
PROVIDERS: ATTEND Internal Medicine Gastroenterology
DX: Z12.11 Encounter for screening for malignant neoplasm of colon (principal); Z86.010 Personal history of colon polyps; K64.0 First degree hemorrhoids; I49.1 Atrial premature depolarization; I49.3 Ventricular premature depolarization; L40.9 Psoriasis, unspecified; G43.909 Migraine, unspecified, not intractable, without status migrainosus; Z91.89 Other specified personal risk factors, not elsewhere classified; Z86.711 Personal history of pulmonary embolism; Z79.899 Other long term (current) drug therapy

== ENCOUNTER → 2021-11-05 | Outpatient (CLI) | payer OTHER ==
[~2021-11-05] MED LIST changes: -LIDOCAINE 2% 100MG/5ML SDV (FOR ANES.) As Ordered ONE; -NS 1,000 ML IV ONE; -propofoL 200 MG/20 ML VIAL As Ordered ONE
== END ==
LOC: M RAD 12:35
PROVIDERS: ATTEND Plastic Surgery Surgery of the Hand
DX: R93.5 Abnormal findings on diagnostic imaging of other abdominal regions, including retroperitoneum (principal)

== ENCOUNTER → 2021-12-03 | Outpatient (CLI) | payer OTHER | LOC: M PLARAD 07:49 | PROVIDERS: ATTEND Physician Assistant | DX: M17.0 Bilateral primary osteoarthritis of knee (principal); S83.242A Other tear of medial meniscus, current injury, left knee, initial encounter; S83.231A Complex tear of medial meniscus, current injury, right knee, initial encounter; M94.262 Chondromalacia, left knee; M94.261 Chondromalacia, right knee ==

== ENCOUNTER → 2022-02-04 | Outpatient (REF) | payer OTHER | LOC: M SFHCWAGY 13:34 | PROVIDERS: ATTEND Advanced Practice Midwife | DX: Z12.4 Encounter for screening for malignant neoplasm of cervix (principal) | CPT/HCPCS: 87624; G0123 ==

== ENCOUNTER → 2022-02-04 | Outpatient (CLI) | payer OTHER | LOC: M WHC 10:39 | PROVIDERS: ATTEND Nurse Practitioner Family | DX: Z12.31 Encounter for screening mammogram for malignant neoplasm of breast (principal) ==

== ENCOUNTER → 2022-02-17 | Outpatient (CLI) | payer OTHER ==
[2022-02-17 10:02] LABS: BASO % 0.5 % (0.0-1.0); EOS # 0.1 10^3/uL (0.0-0.5); EOS % 1.3 % (0.0-3.0); HEMOGLOBIN 13.4 g/dl (12.0-15.5); LYMPH # 2.4 10^3/uL (1.5-5.0); MEAN CORPUSCULAR HEMOGLOBIN 29.8 pg (27.0-33.0); MEAN CORPUSCULAR HGB CONC 32.7 g/dl (32.0-36.5); MEAN CORPUSCULAR VOLUME 91.3 fl (80.0-96.0); MONO # 0.6 10^3/uL (0.0-0.8); MONO % 6.9 % (2.0-8.0); NEUTROPHILS # 5.1 10^3/uL (1.5-8.5); NEUTROPHILS % 61.9 % (36.0-66.0); PLATELET COUNT, AUTOMATED 254 10^3/uL (150-450); RED BLOOD COUNT 4.49 10^6/uL (4.00-5.40); WHITE BLOOD COUNT 8.3 10^3/uL (4.0-10.0)
[2022-02-17 11:55] LABS: C REACTIVE PROTEIN QUANTITATIV < 0.40 MG/DL (<1.0)
[2022-02-17 11:56] LABS: ALBUMIN 3.7 G/DL (3.2-5.2); ALKALINE PHOSPHATASE 76 U/L (46-116); ALT/SGPT 35 U/L (7.0-40); AST/SGOT 30 U/L (<34); BILIRUBIN,TOTAL 0.7 MG/DL (0.3-1.2); BLOOD UREA NITROGEN 11 MG/DL (9-23); CALCIUM LEVEL 9.1 MG/DL (8.5-10.1); CARBON DIOXIDE LEVEL 28 MMOL/L (20-31); CHLORIDE LEVEL 104 MMOL/L (98-107); CREATININE FOR GFR 0.79 MG/DL (0.55-1.30); GLOMERULAR FILTRATION RATE > 60.0 (>51); GLUCOSE, FASTING 84 MG/DL (60-100); POTASSIUM SERUM 4.1 MMOL/L (3.5-5.1); PTH INTACT 46.6 PG/ML (18.5-88.0); SODIUM LEVEL 140 MMOL/L (136-145); THYROID PEROXIDASE ANTIBODY < 28.0 U/ML (<60.0); TOTAL 25(OH) VITAMIN D 33.6 NG/ML (20.0-100.0); TOTAL PROTEIN 7.4 G/DL (5.7-8.2)
[2022-02-17 11:57] LABS: FREE T4 1.46 NG/DL (0.89-1.76); THYROID STIMULATING HORMONE 1.157 uIU/ML (0.55-4.78)
[2022-02-19 17:10] LABS: ANA (HEP2) Negative (.); CYCLIC CITRULLINATED PEPTIDE 6 units (0-19); SOLUBLE TRANSFERRIN RECEPTOR 15.6 nmol/L (12.2-27.3)
== END ==
LOC: M WUC 08:36
PROVIDERS: ATTEND Family Medicine
DX: E55.9 Vitamin D deficiency, unspecified (principal); L40.0 Psoriasis vulgaris; E03.9 Hypothyroidism, unspecified

== ENCOUNTER → 2022-08-24 | Outpatient (CLI) | payer OTHER | LOC: M WUC 08:09 | PROVIDERS: ATTEND Physician Assistant | DX: L40.9 Psoriasis, unspecified (principal) ==

== ENCOUNTER → 2022-08-24 | Outpatient (CLI) | payer OTHER ==
[2022-08-24 09:57] LABS: BASO % 0.5 % (0.0-1.0); EOS # 0.1 10^3/uL (0.0-0.5); EOS % 1.5 % (0.0-3.0); HEMATOCRIT 39.6 % (36.0-47.0); HEMOGLOBIN 13.3 g/dl (12.0-15.5); LYMPH # 2.1 10^3/uL (1.5-5.0); LYMPH % 28.5 % (24.0-44.0); MEAN CORPUSCULAR HEMOGLOBIN 31.1 pg (27.0-33.0); MEAN CORPUSCULAR HGB CONC 33.6 g/dl (32.0-36.5); MEAN CORPUSCULAR VOLUME 92.7 fl (80.0-96.0); MONO # 0.7 10^3/uL (0.0-0.8); MONO % 8.6 % (2.0-8.0); NEUTROPHILS # 4.6 10^3/uL (1.5-8.5); NEUTROPHILS % 60.6 % (36.0-66.0); PLATELET COUNT, AUTOMATED 238 10^3/uL (150-450); RED BLOOD COUNT 4.27 10^6/uL (4.00-5.40); WHITE BLOOD COUNT 7.5 10^3/uL (4.0-10.0)
[2022-08-24 10:34] LABS: RHEUMATOID FACTOR QUANT 28.5 IU/ML (<14)
[2022-08-24 10:38] LABS: FERRITIN 49.2 NG/ML (7.3-270.7); FREE T4 1.16 NG/DL (0.89-1.76); THYROID STIMULATING HORMONE 1.122 uIU/ML (0.55-4.78)
[2022-08-24 10:47] LABS: HEMOGLOBIN A1c 5.2 % (4.0-6.0)
[2022-08-25 23:08] LABS: ANA (HEP2) Negative (.); APOLIPOPROTEIN A-1 176 mg/dL (116-209); APOLIPOPROTEIN B 93 mg/dL (<90); APOLIPOPROTEIN B/A-1 RATIO 0.5 ratio (0.0-0.6); CYCLIC CITRULLINATED PEPTIDE 6 units (0-19); INSULIN LEVEL 11.2 uIU/mL (2.6-24.9)
== END ==
LOC: M WUC 08:11
PROVIDERS: ATTEND Family Medicine
DX: E53.8 Deficiency of other specified B group vitamins (principal); R73.01 Impaired fasting glucose; L40.50 Arthropathic psoriasis, unspecified

== ENCOUNTER 2022-09-14 10:08 | Observation (INO) | payer OTHER ==
[~2022-09-14] VITALS: Ht 162.6 cm; Wt 84.0 kg
[~2022-09-14 10:08] MED LIST changes: +CYAN500T14 PO; +HEPARIN SOD (PORCINE) 5000UNITS/ML 1ML VIAL/SYRINGE SQ ONE; +LIDOCAINE 2% 100MG/5ML SDV (FOR ANES.) As Ordered ONE; +LR 1,000 ML IV SCH; +ONDANSETRON 4MG 2ML VIAL As Ordered ONE; +ROCURONIUM BROMIDE 50MG/5ML VIAL As Ordered ONE; +SUGAMMADEX SODIUM 500 MG/5 ML VIAL (BRIDION) As Ordered ONE; +ceFAZolin SOD 2 GM in IV 1 EA IV ONE; +propofoL 200 MG/20 ML VIAL As Ordered ONE
[2022-09-14] MEDS ORDERED: fentaNYL 250 MCG/5 ML INJECTION As Ordered ONE (10:45)
[2022-09-14] MEDS ORDERED: MIDAZOLAM INJ 2MG/2ML VIAL As Ordered ONE (10:45)
[2022-09-14] MEDS ORDERED: GENTAMICIN SULF 80MG/2ML VIAL As Ordered ONE (11:32)
[2022-09-14] MEDS ORDERED: ACETAMINOPHEN 1000MG 100ML IV BAG As Ordered ONE (12:55)
[2022-09-14] MEDS ORDERED: HYDROmorphone HCL 2MG/ML 1ML VIAL As Ordered ONE (13:23)
[2022-09-14] MEDS ORDERED: ROCURONIUM BROMIDE 50MG/5ML VIAL As Ordered ONE (13:24)
[2022-09-14] MEDS ORDERED: PERCOCET 5MG/325MG TAB PO PRN (16:05)
[2022-09-14] MEDS ORDERED: ONDANSETRON 4MG 2ML VIAL IV PRN ×2 (16:05→16:10)
[2022-09-14] MEDS ORDERED: ceFAZolin SOD 2 GM in IV 1 EA IV ONE (16:05)
[2022-09-14] MEDS ORDERED: LR 1,000 ML IV SCH (16:10)
[2022-09-14] MEDS ORDERED: oxyCODONE 5MG TAB PO PRN (16:10)
[2022-09-14] MEDS: fentaNYL 100 MCG/2 ML INJECTION IV PRN ×4 (16:23→16:40)
[2022-09-14 17:45] VITALS: BP 120/68; TEMP 97.5; O2SAT 95
[2022-09-14] MEDS: LR 1,000 ML IV SCH (17:52)
[2022-09-14] MEDS: ACETAMINOPHEN TAB 650MG DOSE (2X325MG) PO PRN (18:06)
[2022-09-14 18:14] VITALS: BP 119/72; TEMP 97.2; O2SAT 94
[2022-09-14 19:45] VITALS: BP 118/72; TEMP 97.2; O2SAT 95
[2022-09-14] MEDS: traMADol 50 MG TAB PO PRN (20:12)
[2022-09-14 20:57] VITALS: BP 115/71; TEMP 97.3; O2SAT 95
[2022-09-14 22:25] VITALS: BP 112/74; TEMP 97.5; O2SAT 92
[2022-09-15 02:00] VITALS: BP 107/90; TEMP 97.4; O2SAT 94
[2022-09-15] MEDS: traMADol 50 MG TAB PO PRN ×2 (02:56→12:44)
[2022-09-15] MEDS: ACETAMINOPHEN TAB 650MG DOSE (2X325MG) PO PRN (02:57)
[2022-09-15] MEDS: LR 1,000 ML IV SCH (05:47)
[2022-09-15] MEDS ORDERED: LEVOTHYROXINE 100MCG TABLET (0.1MG) PO SCH (06:00)
[2022-09-15 06:40] VITALS: BP 108/70; TEMP 97.5; O2SAT 96
[2022-09-15] MEDS ORDERED: TRAM50TA2 PO (09:44)
[2022-09-15 10:14] VITALS: BP 111/70; TEMP 97.5; O2SAT 95
== END 2022-09-15 12:45 | disposition home or self-care (01) ==
LOC: M SDC 10:08 → M MS5PR 10:09
PROVIDERS: ADMIT Plastic Surgery Surgery of the Hand; ATTEND Plastic Surgery Surgery of the Hand
DX: N62 Hypertrophy of breast (principal); R94.31 Abnormal electrocardiogram [ECG] [EKG]; E03.9 Hypothyroidism, unspecified; Z86.711 Personal history of pulmonary embolism; L40.9 Psoriasis, unspecified; G43.909 Migraine, unspecified, not intractable, without status migrainosus; Z79.899 Other long term (current) drug therapy
CPT/HCPCS: 19318; 87635; 88305; 96365; 96375; C9290; J0131; J0665; J0690; J1100; J1170; J1580; J2250; J2405; J3010

== ENCOUNTER → 2023-02-09 | Outpatient (CLI) | payer OTHER ==
[~2023-02-09] MED LIST changes: -HEPARIN SOD (PORCINE) 5000UNITS/ML 1ML VIAL/SYRINGE SQ ONE; -LIDOCAINE 2% 100MG/5ML SDV (FOR ANES.) As Ordered ONE; -LR 1,000 ML IV SCH; -ONDANSETRON 4MG 2ML VIAL As Ordered ONE; -ROCURONIUM BROMIDE 50MG/5ML VIAL As Ordered ONE; -SUGAMMADEX SODIUM 500 MG/5 ML VIAL (BRIDION) As Ordered ONE; +TRAM50TA2 PO; -ceFAZolin SOD 2 GM in IV 1 EA IV ONE; -propofoL 200 MG/20 ML VIAL As Ordered ONE
== END ==
LOC: M WHC 15:13
PROVIDERS: ATTEND Advanced Practice Midwife
DX: Z12.31 Encounter for screening mammogram for malignant neoplasm of breast (principal)

== ENCOUNTER → 2023-02-09 | Outpatient (REF) | payer OTHER | LOC: M SFHCWAGY 17:52 | PROVIDERS: ATTEND Advanced Practice Midwife | DX: Z12.4 Encounter for screening for malignant neoplasm of cervix (principal) | CPT/HCPCS: 87624; G0123 ==

== ENCOUNTER → 2023-04-11 | Outpatient (CLI) | payer OTHER ==
[2023-04-11 10:35] LABS: BASO # 0.1 10^3/uL (0.0-0.2); BASO % 0.5 % (0.0-1.0); EOS # 0.1 10^3/uL (0.0-0.5); EOS % 1.4 % (0.0-3.0); HEMATOCRIT 41.3 % (36.0-47.0); HEMOGLOBIN 13.6 g/dl (12.0-15.5); LYMPH # 2.8 10^3/uL (1.5-5.0); MEAN CORPUSCULAR HEMOGLOBIN 30.4 pg (27.0-33.0); MEAN CORPUSCULAR HGB CONC 32.9 g/dl (32.0-36.5); MEAN CORPUSCULAR VOLUME 92.4 fl (80.0-96.0); MONO # 0.7 10^3/uL (0.0-0.8); MONO % 7.2 % (2.0-8.0); NEUTROPHILS # 6.5 10^3/uL (1.5-8.5); NEUTROPHILS % 63.6 % (36.0-66.0); PLATELET COUNT, AUTOMATED 255 10^3/uL (150-450); RED BLOOD COUNT 4.47 10^6/uL (4.00-5.40); WHITE BLOOD COUNT 10.2 10^3/uL (4.0-10.0)
[2023-04-11 10:41] LABS: ERYTHROCYTE SEDIMENTATION RATE 31 mm/hr (0-30)
[2023-04-11 10:46] LABS: C REACTIVE PROTEIN QUANTITATIV < 0.40 MG/DL (<1.0)
[2023-04-11 10:48] LABS: ALBUMIN 3.6 G/DL (3.2-5.2); ALKALINE PHOSPHATASE 68 U/L (46-116); ALT/SGPT 29 U/L (7.0-40); AST/SGOT 20 U/L (<34); BILIRUBIN,TOTAL 0.7 MG/DL (0.3-1.2); BLOOD UREA NITROGEN 11 MG/DL (9-23); CALCIUM LEVEL 8.7 MG/DL (8.5-10.1); CARBON DIOXIDE LEVEL 28 MMOL/L (20-31); CHLORIDE LEVEL 108 MMOL/L (98-107); CHOLESTEROL LEVEL 187 MG/DL (<200); CREATININE FOR GFR 0.78 MG/DL (0.55-1.30); GLOMERULAR FILTRATION RATE > 60.0 (>51); GLUCOSE, FASTING 82 MG/DL (60-100); HDL CHOLESTEROL 69.2 MG/DL (>40); LDL CHOLESTEROL 102.4 MG/DL (<100); NON-HDL-C 117.8 MG/DL; POTASSIUM SERUM 4.3 MMOL/L (3.5-5.1); SODIUM LEVEL 141 MMOL/L (136-145); TOTAL PROTEIN 7.1 G/DL (5.7-8.2); TRIGLYCERIDES LEVEL 77 MG/DL (<150)
[2023-04-11 10:49] LABS: PTH INTACT 54.6 PG/ML (18.5-88.0); VITAMIN B12 LEVEL 742 PG/ML (211-911)
[2023-04-11 10:50] LABS: FERRITIN 45.8 NG/ML (7.3-270.7); TOTAL 25(OH) VITAMIN D 36.2 NG/ML (20.0-100.0)
== END ==
LOC: M WUC 08:05
PROVIDERS: ATTEND Family Medicine
DX: E53.8 Deficiency of other specified B group vitamins (principal); L40.50 Arthropathic psoriasis, unspecified; E55.9 Vitamin D deficiency, unspecified

== ENCOUNTER → 2023-04-18 | Outpatient (REF) | payer OTHER | LOC: M SFHCPLAZ 17:51 | PROVIDERS: ATTEND Family Medicine | DX: D50.9 Iron deficiency anemia, unspecified (principal); E53.8 Deficiency of other specified B group vitamins; E03.9 Hypothyroidism, unspecified; R73.01 Impaired fasting glucose ==

== ENCOUNTER → 2023-04-29 | Outpatient (CLI) | payer OTHER | LOC: M WHC 08:15 | PROVIDERS: ATTEND Family Medicine | DX: Z13.820 Encounter for screening for osteoporosis (principal); M85.851 Other specified disorders of bone density and structure, right thigh; M85.852 Other specified disorders of bone density and structure, left thigh ==

== ENCOUNTER → 2023-07-27 | Outpatient (REF) | payer OTHER | LOC: M SFHCDERM 15:44 | PROVIDERS: ATTEND Physician Assistant | DX: Z53.9 Procedure and treatment not carried out, unspecified reason (principal) ==

== ENCOUNTER → 2023-10-07 | Outpatient (CLI) | payer OTHER ==
[2023-10-11 11:47] LABS: QuantiFERON-TB Gold Plus NEGATIVE (NEGATIVE)
== END ==
LOC: M WUC 08:21
PROVIDERS: ATTEND Physician Assistant
DX: L40.9 Psoriasis, unspecified (principal)

== ENCOUNTER → 2023-10-07 | Outpatient (CLI) | payer OTHER ==
[2023-10-07 11:54] LABS: BASO % 0.5 % (0.0-1.0); EOS # 0.1 10^3/uL (0.0-0.5); EOS % 1.3 % (0.0-3.0); HEMATOCRIT 42.4 % (36.0-47.0); HEMOGLOBIN 13.9 g/dl (12.0-15.5); LYMPH % 25.4 % (24.0-44.0); MEAN CORPUSCULAR HGB CONC 32.8 g/dl (32.0-36.5); MEAN CORPUSCULAR VOLUME 94.4 fl (80.0-96.0); MONO # 0.6 10^3/uL (0.0-0.8); MONO % 7.2 % (2.0-8.0); NEUTROPHILS # 5.1 10^3/uL (1.5-8.5); NEUTROPHILS % 65.5 % (36.0-66.0); PLATELET COUNT, AUTOMATED 238 10^3/uL (150-450); RED BLOOD COUNT 4.49 10^6/uL (4.00-5.40); WHITE BLOOD COUNT 7.7 10^3/uL (4.0-10.0)
[2023-10-07 12:01] LABS: FREE T4 1.34 NG/DL (0.89-1.76); THYROID STIMULATING HORMONE 1.203 uIU/ML (0.55-4.78)
[2023-10-07 12:02] LABS: FERRITIN 54.9 NG/ML (7.3-270.7)
[2023-10-07 12:48] LABS: HEMOGLOBIN A1c 5.2 % (4.0-6.0)
[2023-10-10 09:52] LABS: INSULIN LEVEL 12.9 uIU/mL (<=18.4)
== END ==
LOC: M WUC 08:19
PROVIDERS: ATTEND Family Medicine
DX: R73.01 Impaired fasting glucose (principal); D50.9 Iron deficiency anemia, unspecified; E53.8 Deficiency of other specified B group vitamins; E03.9 Hypothyroidism, unspecified

== ENCOUNTER → 2023-10-11 | Outpatient (REF) | payer OTHER | LOC: M SFHCPLAZ 10:13 | PROVIDERS: ATTEND Family Medicine | DX: D50.9 Iron deficiency anemia, unspecified (principal); E53.8 Deficiency of other specified B group vitamins; E03.9 Hypothyroidism, unspecified; R73.01 Impaired fasting glucose; E78.2 Mixed hyperlipidemia; E55.9 Vitamin D deficiency, unspecified ==

== ENCOUNTER → 2024-02-14 | Outpatient (CLI) | payer OTHER | LOC: M WHC 09:17 | PROVIDERS: ATTEND Family Medicine | DX: Z12.31 Encounter for screening mammogram for malignant neoplasm of breast (principal); R92.323 Mammographic fibroglandular density, bilateral breasts ==

== ENCOUNTER → 2024-04-05 | Outpatient (CLI) | payer OTHER ==
[2024-04-05 18:27] LABS: ALBUMIN 4.1 G/DL (3.2-5.2); ALKALINE PHOSPHATASE 69 U/L (35-104); ALT/SGPT 50 U/L (7.0-40); AST/SGOT 37 U/L (<34); BASO # 0.1 10^3/uL (0.0-0.2); BASO % 0.7 % (0.0-1.0); BILIRUBIN,TOTAL 1.1 MG/DL (0.3-1.2); BLOOD UREA NITROGEN 12 MG/DL (9-23); CALCIUM LEVEL 9.7 MG/DL (8.5-10.1); CARBON DIOXIDE LEVEL 29 MMOL/L (20-31); CHLORIDE LEVEL 107 MMOL/L (98-107); CHOLESTEROL LEVEL 240 MG/DL (<200); CHOLESTEROL RISK RATIO 3.28 (<5); EOS # 0.1 10^3/uL (0.0-0.5); FERRITIN 72.8 NG/ML (7.3-270.7); GLOMERULAR FILTRATION RATE > 60.0 (>51); GLUCOSE, FASTING 93 MG/DL (60-100); HDL CHOLESTEROL 73.1 MG/DL (>40); HEMATOCRIT 44.2 % (36.0-47.0); LDL CHOLESTEROL 144.9 MG/DL (<100); LYMPH # 2.7 10^3/uL (1.5-5.0); LYMPH % 25.4 % (24.0-44.0); MEAN CORPUSCULAR HEMOGLOBIN 30.3 pg (27.0-33.0); MEAN CORPUSCULAR HGB CONC 31.7 g/dl (32.0-36.5); MEAN CORPUSCULAR VOLUME 95.7 fl (80.0-96.0); MONO # 0.8 10^3/uL (0.0-0.8); MONO % 7.5 % (2.0-8.0); NON-HDL-C 166.9 MG/DL; PLATELET COUNT, AUTOMATED 270 10^3/uL (150-450); POTASSIUM SERUM 4.2 MMOL/L (3.5-5.1); RED BLOOD COUNT 4.62 10^6/uL (4.00-5.40); SODIUM LEVEL 145 MMOL/L (136-145); TOTAL PROTEIN 7.9 G/DL (5.7-8.2); TRIGLYCERIDES LEVEL 110 MG/DL (<150); WHITE BLOOD COUNT 10.7 10^3/uL (4.0-10.0)
[2024-04-05 18:28] LABS: FREE T4 1.52 NG/DL (0.89-1.76); PTH INTACT 53.3 PG/ML (18.5-88.0); THYROID STIMULATING HORMONE 2.733 uIU/ML (0.55-4.78); TOTAL 25(OH) VITAMIN D 23.3 NG/ML (20.0-100.0)
[2024-04-05 18:29] LABS: VITAMIN B12 LEVEL 605 PG/ML (211-911)
[2024-04-05 19:03] LABS: HEMOGLOBIN A1c 5.3 % (4.0-6.0)
== END ==
LOC: M WUC 12:01
PROVIDERS: ATTEND Family Medicine
DX: D50.9 Iron deficiency anemia, unspecified (principal); E03.9 Hypothyroidism, unspecified; E55.9 Vitamin D deficiency, unspecified; R73.01 Impaired fasting glucose; E78.2 Mixed hyperlipidemia; E53.8 Deficiency of other specified B group vitamins

== ENCOUNTER → 2024-05-23 | Outpatient (CLI) | payer OTHER ==
[~2024-05-23] MED LIST changes: +SYNT100T PO; +TALT80IN5 SC; +VITA100093 PO
[2024-05-23 13:41] LABS: BASO # 0.1 10^3/uL (0.0-0.2); BASO % 0.6 % (0.0-1.0); EOS # 0.1 10^3/uL (0.0-0.5); EOS % 1.5 % (0.0-3.0); HEMATOCRIT 41.1 % (36.0-47.0); HEMOGLOBIN 13.5 g/dl (12.0-15.5); LYMPH # 2.4 10^3/uL (1.5-5.0); LYMPH % 27.7 % (24.0-44.0); MEAN CORPUSCULAR HEMOGLOBIN 31.3 pg (27.0-33.0); MEAN CORPUSCULAR HGB CONC 32.8 g/dl (32.0-36.5); MEAN CORPUSCULAR VOLUME 95.1 fl (80.0-96.0); MONO # 0.8 10^3/uL (0.0-0.8); MONO % 9.1 % (2.0-8.0); NEUTROPHILS # 5.4 10^3/uL (1.5-8.5); NEUTROPHILS % 60.9 % (36.0-66.0); PLATELET COUNT, AUTOMATED 298 10^3/uL (150-450); RED BLOOD COUNT 4.32 10^6/uL (4.00-5.40); WHITE BLOOD COUNT 8.8 10^3/uL (4.0-10.0)
[2024-05-23 14:08] LABS: CHOLESTEROL RISK RATIO 3.01 (<5); HDL CHOLESTEROL 61.6 MG/DL (>40); LDL CHOLESTEROL 103.2 MG/DL (<100); NON-HDL-C 124.4 MG/DL
[2024-05-23 14:09] LABS: FERRITIN 65.5 NG/ML (7.3-270.7); THYROID STIMULATING HORMONE 1.521 uIU/ML (0.55-4.78); TOTAL 25(OH) VITAMIN D 25.3 NG/ML (20.0-100.0)
[2024-05-23 14:10] LABS: FREE T4 1.49 NG/DL (0.89-1.76)
[2024-05-23 14:28] LABS: HEMOGLOBIN A1c 5.2 % (4.0-6.0)
== END ==
LOC: M WUC 08:54
PROVIDERS: ATTEND Family Medicine
DX: D50.9 Iron deficiency anemia, unspecified (principal); E03.9 Hypothyroidism, unspecified; R73.01 Impaired fasting glucose; E53.8 Deficiency of other specified B group vitamins; E55.9 Vitamin D deficiency, unspecified; E78.2 Mixed hyperlipidemia

== ENCOUNTER → 2024-12-24 | Outpatient (CLI) | payer OTHER ==
[~2024-12-24] MED LIST changes: +TOPI-256; -TOPI25TA10
[2024-12-24 12:57] LABS: BASO # 0.1 10^3/uL (0.0-0.2); BASO % 0.7 % (0.0-1.0); EOS # 0.1 10^3/uL (0.0-0.5); EOS % 1.6 % (0.0-3.0); LYMPH # 2.3 10^3/uL (1.5-5.0); LYMPH % 28.3 % (24.0-44.0); MONO # 0.7 10^3/uL (0.0-0.8); MONO % 8.0 % (2.0-8.0); NEUTROPHILS # 5.0 10^3/uL (1.5-8.5); NEUTROPHILS % 61.2 % (36.0-66.0); PLATELET COUNT, AUTOMATED 223 10^3/uL (150-450)
[2024-12-24 13:09] LABS: ERYTHROCYTE SEDIMENTATION RATE 35 mm/hr (0-30)
[2024-12-24 13:22] LABS: C REACTIVE PROTEIN QUANTITATIV < 0.50 MG/DL (<1.0); ESTIMATED AVERAGE GLUCOSE 114.0 MG/DL (60-110)
[2024-12-24 13:25] LABS: ALT/SGPT 28 U/L (7.0-40); AST/SGOT 23 U/L (<34); CALCIUM LEVEL 8.9 MG/DL (8.3-10.6); CARBON DIOXIDE LEVEL 25 MMOL/L (20-31); CHLORIDE LEVEL 108 MMOL/L (98-107); CREATININE FOR GFR 0.75 MG/DL (0.55-1.30); GLOMERULAR FILTRATION RATE > 90.0 (>45); POTASSIUM SERUM 4.5 MMOL/L (3.5-5.1); SODIUM LEVEL 145 MMOL/L (136-145)
[2024-12-24 13:27] LABS: PTH INTACT 51.7 PG/ML (18.5-88.0)
[2024-12-24 13:28] LABS: TOTAL 25(OH) VITAMIN D 31.4 NG/ML (20.0-100.0)
[2024-12-24 13:29] LABS: FREE T4 1.20 NG/DL (0.89-1.76); VITAMIN B12 LEVEL 413 PG/ML (211-911)
== END ==
LOC: M WUC 10:09
PROVIDERS: ATTEND Family Medicine
DX: D50.9 Iron deficiency anemia, unspecified (principal); E55.9 Vitamin D deficiency, unspecified; E03.9 Hypothyroidism, unspecified; R73.01 Impaired fasting glucose; E53.8 Deficiency of other specified B group vitamins; L40.50 Arthropathic psoriasis, unspecified

== ENCOUNTER → 2025-02-21 | Outpatient (CLI) | payer OTHER | LOC: M WHC 10:18 | PROVIDERS: ATTEND Family Medicine | DX: Z12.39 Encounter for other screening for malignant neoplasm of breast (principal); Z53.9 Procedure and treatment not carried out, unspecified reason ==